=== PATIENT | female | born 1940 | race Caucasian/White ===

== ENCOUNTER → 2017-10-11 19:18 | Outpatient (REF) | payer MEDICARE, MEDICAID, SELFPAY ==
[2017-10-11 20:45] LABS: *AMPHETAMINES SCREEN URINE Negative (Negative); *BARBITURATES SCREEN URINE Negative (Negative); *BENZODIAZEPINES SCREEN URINE Negative (Negative); Cannabinoids THC Negative (Negative); Cocaine Screen,Urine Negative (Negative); METHADONE URINE SCREEN Negative (Negative); OPIATES URINE SCREEN Negative (Negative)
[2017-10-11 20:46] LABS: Tricyclic Antidepressants POSITIVE (Negative)
== END ==
LOC: LBN 19:18
PROVIDERS: PCP Student in an Organized Health Care Education/Training Program; Visit Provider Student in an Organized Health Care Education/Training Program
DX: R82.90 Unspecified abnormal findings in urine (principal); F11.90 Opioid use, unspecified, uncomplicated; G89.29 Other chronic pain
CPT/HCPCS: 80307

== ENCOUNTER 2018-05-02 08:34 | Outpatient (CLI) | payer MEDICARE, MEDICAID, SELFPAY ==
[2018-05-02 09:42] LABS: Anion Gap 9.2 mmol/L (3-11); BUN 18 mg/dL (7-18); CO2 29.8 mmol/L (21.0-32.0); CREATININE 1.25 mg/dL (0.55-1.02); Calcium 9.2 mg/dL (8.5-10.1); Chloride 103 mmol/L (98-107); Estimated GFR 41.67 (mL/min/1.73m2); Glucose 95 mg/dL (70-100); Potassium 3.7 mmol/L (3.5-5.1); Sodium 142 mmol/L (136-145)
== END 2018-05-02 08:54 ==
PROVIDERS: PCP Student in an Organized Health Care Education/Training Program; Visit Provider Student in an Organized Health Care Education/Training Program
DX: I10 Essential (primary) hypertension (principal); E78.5 Hyperlipidemia, unspecified; Z86.39 Personal history of other endocrine, nutritional and metabolic disease
CPT/HCPCS: 36415; 80048

== ENCOUNTER 2019-10-30 09:43 | Outpatient (REF) | payer MEDICARE, MEDICAID, SELFPAY ==
[2019-10-30 17:08] LABS: ALT 19 U/L (14-59); AST 15 U/L (15-37); Albumin 3.7 g/dL (3.4-5.0); Alkaline Phosphatase 78 U/L (46-116); Anion Gap 5.4 mmol/L (3-11); BUN 25 mg/dL (7-18); Bilirubin, Total 0.6 mg/dL (0.2-1.0); CO2 31.6 mmol/L (21.0-32.0); CREATININE 1.11 mg/dL (0.55-1.02); Calcium 9.2 mg/dL (8.5-10.1); Chloride 104 mmol/L (98-107); Estimated GFR 47.66 (mL/min/1.73m2); Glucose 104 mg/dL (74-106); Potassium 4.1 mmol/L (3.5-5.1); Sodium 141 mmol/L (136-145); TSH (W/Ref FT4) 1.35 uIU/mL (0.36-3.74); Total Protein 6.4 g/dL (6.4-8.2)
[2019-10-31 07:06] LABS: Vitamin D 25 Total 39.8 ng/ml (30-100)
[2019-10-31 14:40] LABS: Calculated LDL 144 mg/dL (<100); Cholesterol 225 mg/dL (<200); HDL Cholesterol 66 mg/dL (40-60); Triglyceride 76 mg/dL (<150)
== END 2019-10-30 10:03 ==
LOC: NCHCN 09:43
PROVIDERS: PCP Nurse Practitioner; Visit Provider Nurse Practitioner
DX: I10 Essential (primary) hypertension (principal); R60.9 Edema, unspecified; Z79.51 Long term (current) use of inhaled steroids; Z13.6 Encounter for screening for cardiovascular disorders
CPT/HCPCS: 80053; 80061; 82306; 84443

== ENCOUNTER 2021-04-23 00:44 | Outpatient (CLI) | payer MEDICARE, MEDICAID, SELFPAY ==
--- NOTE | 2021-04-23 09:27 | DI.US_ITS ---
APPROVED REPORT EXAM: Comprehensive 2D, Doppler, and color-flow Echocardiogram Patient Location: Out-Patient Technical Trainer: Annelise Gibson RDCS (AE) Indications: Atrial Fibrillation, Chronic edema, COPD Other Information Study Quality: Adequate Conclusion Normal left ventricular wall thickness and chamber size. Estimated ejection fraction is 55%. Wall m otion is normal Normal right ventricular size and systolic function The right atrium is mildly dilated. The left atrium is normal in size Trileaflet sclerotic aortic valve with trace regurgitation Mitral annular calcification with mild to moderate mitral regurgitation Normal tricuspid valve with moderate regurgitation. Estimated right ventricular systolic pressure is 47 mmHg Wall motion Left Ventricle The left ventricle is normal size. The left ventricular systolic function is normal. The left ventric ular ejection fraction is within the normal range. There is normal left ventricular wall thickness. T here is normal LV segmental wall motion. There is no ventricular septal defect visualized. LVEF is 55 %. Right Ventricle The right ventricle is normal size. Right ventricular systolic function is grossly normal. The RVSP i s 47.2 mmHg. Atria The left atrium size is normal. Right atrium is mildly dilated. The interatrial septum is intact with no evidence for an atrial septal defect. Aortic Valve The Aortic valve is sclerotic. Aortic valve is trileaflet. There is no aortic valvular stenosis. Trac e aortic regurgitation. Mitral Valve Moderate mitral annular calcification. No evidence of mitral valve stenosis. Mild to moderate mitral regurgitation. Tricuspid Valve The tricuspid valve is normal in structure. There is no tricuspid valve stenosis. Moderate tricuspid regurgitation. Pulmonic Valve The pulmonary valve is normal in structure. There is no pulmonic valvular stenosis. Trace pulmonic re gurgitation. Great Vessels The aortic root is normal in size. Ascending aorta is not well visualized. Aortic arch is not well vi sualized. IVC is normal in size and collapses >50% with inspiration. Pericardium Trace pericardial effusion. 2D Dimensions IVSD d PLAX 0.90 cm F: 0.6-1.0 LV Vol A2C d MOD 109.3 mL LVPW d PLAX 0.93 cm F: 0.6 - 1.0 LV Vol A4C d MOD 84.0 mL LVID d PLAX 4.28 cm F: 3.8 - 5.2 LA vol/ BSA A2C s A-L 21.9 mL/m2 LVDs 3.05 cm F: 2.2 - 3.5 LA vol/ BSA A4C s A-L 31.7 mL/m2 Ao Root d 2.66 cm F: 2.7 - 3.3 LA Vol/ BSA Biplane s A-L 29.6 mL/m2 RA Area A4C 17.53 cm2 LA Area A4C s MOD 19.94 cm2 RA Vol/ BSA A4C s A-L 27.3 mL/m2 LA Area A2C s MOD 14.75 cm2 LV EF Teichholz 54.7 % LV EF A4C MOD 54.3 % LVEF (Vazquez's) 52.19 % F: 54 - 74 LV EF A2C MOD 50.8 % LV Volume 76.08 mL F: 46 - 106 LV EF Biplane MOD 52.2 % LV Volume Index 39.83 mL/m2 F: 29 - 61 SV 52.16 mL LV Vol Biplane MOD 99.9 mL SV Index 27.25 mL/m2 FS 28.05 % M-Mode TAPSE 2.18 cm (M/F) >1.7 LV Diastology MV E' medial 0.142 (>0.07 m/s) MV E Vmax 0.97 (0.4-1.3 m/s) LV E/e MED 6.80 (<14) MV E' lateral 0.149 (>0.1 m/s) LV E/e LAT 6.45 (<14) MV E/E' medial 6.81 MV E/E' lateral 6.48 Aortic Valve LVOT Vmax 1.08 m/s LVOT Mean Rainer. 0.70 m/s LVOT Peak Grad 4.7 mmHg LVOT Mean Grad 2.3 mmHg LVOT VTI 0.186 m AoV Vmax 1.16 m/s Velocity Ratio 0.93 AoV Mean Rainer. 0.87 m/s AoV Peak Grad 5.4 mmHg AoV Mean Grad 3.3 mmHg AoV VTI 0.220 m Mitral Valve MV DT 240 (160-240 msec) MR Vmax 5.05 m/s MV PHT 70 msec MR VTI 1.565 m MV Area PHT 3.16 cm2 MR Peak Grad 102.1 mmHg MV VTI 0.185 m MR Mean Grad 81.8 mmHg Pulmonary Valve PV Vmax 1.04 (0.5-1.5 m/s) RVOT Peak Gr. 0.73 mmHg PV Peak Grad 4.4 mmHg RVOT Mean Gr. 0.50 mmHg PV Mean Grad 3.0 mmHg RVOT VTI 0.085 m PV VTI 0.161 m RVOT Vmax 0.43 m/s Tricuspid Valve TR Peak Grad 44.2 mmHg TR Vmax 3.32 m/s RA Pressure 3.00 mmHg RVSP (TR) 47.2 mmHg
== END 2021-04-23 01:04 ==
PROVIDERS: PCP Nurse Practitioner; Visit Provider Nurse Practitioner Family
DX: I48.91 Unspecified atrial fibrillation (principal); R60.9 Edema, unspecified; J44.9 Chronic obstructive pulmonary disease, unspecified
CPT/HCPCS: 93306

== ENCOUNTER 2021-05-06 19:28 | Outpatient (REF) | payer MEDICARE, MEDICAID, SELFPAY ==
[2021-05-06 14:56] LABS: HCT 38.2 % (36.0-46.0); HGB 11.6 g/dL (11.2-15.7); MCH 26.3 pg (27.0-33.0); MCHC 30.4 % (32.0-36.0); MCV 86.6 fL (80-95); MPV 9.6 fL (8.0-11.0); Platelet Count 264 10^3/uL (130-400); RBC 4.41 10^6/uL (3.93-5.22); RDW 13.9 % (11.7-14.6); WBC 7.43 10^3/uL (4.4-10.8)
[2021-05-06 15:04] LABS: ESR 23 mm/hr (0-30)
[2021-05-06 15:21] LABS: INR 1.1 (0.9-1.1); PTT Activated 29.4 sec (21.0-27.5); Prothrombin Time 11.4 sec (9.3-11.0)
[2021-05-06 16:01] LABS: ALT 17 U/L (14-59); AST 16 U/L (15-37); Albumin 3.4 g/dL (3.4-5.0); Alkaline Phosphatase 75 U/L (46-116); Anion Gap 9.4 mmol/L (3-11); BUN 26 mg/dL (7-18); Bilirubin, Total 0.4 mg/dL (0.2-1.0); CO2 30.6 mmol/L (21.0-32.0); CREATININE 1.4 mg/dL (0.55-1.02); Calcium 9.1 mg/dL (8.5-10.1); Calculated LDL 131 mg/dL (<100); Chloride 104 mmol/L (98-107); Cholesterol 217 mg/dL (<200); Estimated GFR 36.27 (mL/min/1.73m2); Glucose 95 mg/dL (74-106); HDL Cholesterol 69 mg/dL (40-60); Potassium 3.7 mmol/L (3.5-5.1); Sodium 144 mmol/L (136-145); Total Protein 6.6 g/dL (6.4-8.2); Triglyceride 85 mg/dL (<150)
[2021-05-06 16:13] LABS: C-Reactive Protein 0.21 mg/dL (0.0-0.3)
[2021-05-06 21:39] LABS: Rheumatoid Factor <8.6 IU/mL (<12.0)
[2021-05-07 13:40] LABS: ANA Interpretation Negative (Negative)
== END 2021-05-06 19:29 | disposition home or self-care (01) ==
LOC: NCHCN 19:28
PROVIDERS: PCP Nurse Practitioner; Visit Provider Nurse Practitioner Family
DX: I48.91 Unspecified atrial fibrillation (principal); M25.551 Pain in right hip; M25.59 Pain in other specified joint; G89.4 Chronic pain syndrome
CPT/HCPCS: 80053; 80061; 85027; 85652; 84443; 85610; 85730; 86038; 86140; 86431

== ENCOUNTER → 2021-05-18 01:35 | Outpatient (CLI) | payer MEDICARE, MEDICAID, SELFPAY ==
--- NOTE | 2021-05-18 | DI.RAD_ITS ---
Exam(s) XR HIP RT COMPLETE AP PELVIS EXAM: XR HIP RT COMPLETE AP PELVIS CLINICAL HISTORY: RT HIP PAIN, HX OSTEOARTHRITIS, BASELINE XRAY. TECHNIQUE: 2D digital imaging was performed of the right hip. Two images were obtained. AP pelvis a nd lateral right hip views were obtained. COMPARISON: No exams were available for comparison FINDINGS: BONES: No acute fracture is present. No bony destructive lesion is seen. JOINTS: No dislocation present. There is mild narrowing of the right hip joint. Moderate degenerativ e changes are seen in the visualized lumbar spine with disc space narrowing and endplate osteophytes. Mild degenerative changes are seen at the sacroiliac joints. SOFT TISSUE: Normal. IMPRESSION: Mild joint space narrowing of the right hip. Degenerative changes in the pelvis and lumbar spine. DATA REPOSITORY: RADIATION DOSE DELIVERED:
== END ==
PROVIDERS: PCP Nurse Practitioner; Visit Provider Nurse Practitioner Family
DX: M25.551 Pain in right hip (principal); M16.11 Unilateral primary osteoarthritis, right hip
CPT/HCPCS: 73502

== ENCOUNTER → 2021-07-12 13:30 | Outpatient (BNVA) | payer MEDICARE, MEDICAID, SELFPAY | PROVIDERS: PCP Nurse Practitioner; Referring Provider Nurse Practitioner; Visit Provider Student in an Organized Health Care Education/Training Program | DX: M16.11 Unilateral primary osteoarthritis, right hip (principal); M70.61 Trochanteric bursitis, right hip | CPT/HCPCS: 20610; 99203; J1040 ==

== ENCOUNTER 2021-09-07 18:37 | Outpatient (REF) | payer MEDICARE, MEDICAID, SELFPAY ==
[2021-09-07 14:21] LABS: Abs Immature Grans 0.05 10^3/uL (0.0-0.06); Absolute Basophil Count 0.08 10^3/uL (0.0-0.2); Absolute Eosinophil Count 0.11 10^3/uL (0.0-0.7); Absolute Lymphocyte Count 1.66 10^3/uL (1.2-3.4); Absolute Monocyte Count 0.65 10^3/uL (0.1-0.8); Absolute Neutrophil Count 4.29 10^3/uL (1.2-6.7); Basophils % 1.2; Eosinophils % 1.6; HCT 37.6 % (36.0-46.0); HGB 11.7 g/dL (11.2-15.7); Immature Grans % 0.7; Lymphocytes % 24.3; MCH 27.7 pg (27.0-33.0); MCHC 31.1 % (32.0-36.0); MCV 89 fL (80-95); MPV 9.3 fL (8.0-11.0); Monocytes % 9.5; Neutrophils % 62.7; Platelet Count 242 10^3/uL (130-400); RBC 4.23 10^6/uL (3.93-5.22); RDW 15.4 % (11.7-14.6); RDW-SD 50.2 fL; WBC 6.84 10^3/uL (4.4-10.8)
[2021-09-07 15:20] LABS: ALT 21 U/L (14-59); AST 18 U/L (15-37); Albumin 3.5 g/dL (3.4-5.0); Alkaline Phosphatase 68 U/L (46-116); BUN 30 mg/dL (7-18); Bilirubin, Total 0.5 mg/dL (0.2-1.0); CREATININE 1.5 mg/dL (0.55-1.02); Calculated LDL 114 mg/dL (<100); Chloride 103 mmol/L (98-107); Cholesterol 197 mg/dL (<200); Ferritin 9 ng/mL (8-252); Glucose 95 mg/dL (74-106); HDL Cholesterol 64 mg/dL (40-60); Potassium 3.8 mmol/L (3.5-5.1); Sodium 144 mmol/L (136-145); Total Protein 6.5 g/dL (6.4-8.2); Triglyceride 95 mg/dL (<150)
[2021-09-07 15:36] LABS: PHOSPHORUS 3.3 mg/dL (2.6-4.7)
[2021-09-07 23:18] LABS: Parathyroid Hormone,Intact 43 pg/mL (19-88)
[2021-09-09 05:32] LABS: Vitamin D 25 Total 38.3 ng/mL (30-100)
== END 2021-09-07 18:38 | disposition home or self-care (01) ==
LOC: NCHCN 18:37
PROVIDERS: PCP Nurse Practitioner; Visit Provider Nurse Practitioner Family
DX: I48.91 Unspecified atrial fibrillation (principal); N28.9 Disorder of kidney and ureter, unspecified; J44.9 Chronic obstructive pulmonary disease, unspecified; M25.551 Pain in right hip; E66.8 Other obesity; I10 Essential (primary) hypertension
CPT/HCPCS: 80053; 80061; 82306; 82728; 83970; 84100; 85025

== ENCOUNTER 2021-11-30 16:24 | Outpatient (REF) | payer MEDICARE, MEDICAID, SELFPAY ==
[2021-11-30 14:35] LABS: Abs Immature Grans 0.02 10^3/uL (0.0-0.06); Absolute Basophil Count 0.06 10^3/uL (0.0-0.2); Absolute Eosinophil Count 0.05 10^3/uL (0.0-0.7); Absolute Lymphocyte Count 1.66 10^3/uL (1.2-3.4); Absolute Monocyte Count 0.72 10^3/uL (0.1-0.8); Absolute Neutrophil Count 4.86 10^3/uL (1.2-6.7); Basophils % 0.8; Eosinophils % 0.7; HCT 37.8 % (36.0-46.0); HGB 11.8 g/dL (11.2-15.7); Immature Grans % 0.3; Lymphocytes % 22.5; MCH 28.5 pg (27.0-33.0); MCHC 31.2 % (32.0-36.0); MCV 91 fL (80-95); MPV 9.1 fL (8.0-11.0); Monocytes % 9.8; Neutrophils % 65.9; Platelet Count 248 10^3/uL (130-400); RBC 4.14 10^6/uL (3.93-5.22); WBC 7.37 10^3/uL (4.4-10.8)
[2021-11-30 15:32] LABS: ALT 20 U/L (14-59); AST 20 U/L (15-37); Albumin 3.5 g/dL (3.4-5.0); Alkaline Phosphatase 58 U/L (46-116); Anion Gap 7.4 mmol/L (3-11); BUN 20 mg/dL (7-18); Bilirubin, Total 0.5 mg/dL (0.2-1.0); CO2 31.6 mmol/L (21.0-32.0); CREATININE 1.1 mg/dL (0.55-1.02); Calcium 9.4 mg/dL (8.5-10.1); Chloride 104 mmol/L (98-107); Estimated GFR 51.11 (mL/min/1.73m2); Glucose 99 mg/dL (74-106); Potassium 3.7 mmol/L (3.5-5.1); Sodium 143 mmol/L (136-145); Total Protein 6.6 g/dL (6.4-8.2)
== END 2021-11-30 16:25 | disposition home or self-care (01) ==
LOC: NCHCN 16:24
PROVIDERS: PCP Nurse Practitioner; Visit Provider Nurse Practitioner Family
DX: F41.8 Other specified anxiety disorders (principal); I48.91 Unspecified atrial fibrillation; I10 Essential (primary) hypertension; N28.9 Disorder of kidney and ureter, unspecified; R60.9 Edema, unspecified
CPT/HCPCS: 80053; 84443; 85025

== ENCOUNTER → 2022-01-28 10:26 | Outpatient (BNVA) | payer MEDICARE, MEDICAID, SELFPAY | PROVIDERS: PCP Nurse Practitioner Family; Referring Provider Nurse Practitioner Family; Visit Provider Physician Assistant | DX: M70.61 Trochanteric bursitis, right hip (principal) | CPT/HCPCS: 20610; J1040 ==

== ENCOUNTER → 2022-04-01 09:59 | Outpatient (BNVA) | payer MEDICARE, MEDICAID, SELFPAY | PROVIDERS: PCP Nurse Practitioner Family; Referring Provider Nurse Practitioner Family; Visit Provider Student in an Organized Health Care Education/Training Program | DX: M70.61 Trochanteric bursitis, right hip (principal); M76.891 Other specified enthesopathies of right lower limb, excluding foot | CPT/HCPCS: 99213 ==

== ENCOUNTER 2022-04-28 01:35 | Outpatient (CLI) | payer MEDICARE, MEDICAID, SELFPAY ==
--- NOTE | 2022-04-28 13:00 | DI.MRI_ITS ---
Exam(s) MR LOWER JOINT RT WO EXAM: MR LOWER JOINT RT WO CLINICAL HISTORY: PAIN,djd rt hip, trochenteric bursitis rt hip,m16.11,m70.61 TECHNIQUE: Multiplanar multisequence MRI of Pelvis was performed COMPARISON: US PELVIS TRANSVAG from 01/04/2010 CR XR HIP RT COMPLETE AP PELVIS from 05/18/2021 FINDINGS: Bones: There is no fracture or contusion pattern. No bone marrow edema is seen. Joints: No significant joint effusion is present. The SI joints and symphysis pubis are well maintain ed. Spurring at the pubic symphysis. Tiny cyst in the superior labrum. Degenerative signal changes in the labrum. Musculotendinous structures: No evidence of tendon tear. Mild edema at greater trochanter could ind icate mild trochanteric bursitis. Intrapelvic structures: Abnormal endometrial thickening of up to 2 cm . Mild sigmoid diverticulosis. Urinary bladder nearly empty. IMPRESSION: Minimal edema adjacent to greater trochanter could indicate mild trochanteric bursitis. Abnormal thickening of the endometrium up to 2 cm. Gynecologic consultation recommended. Unexpected findings DATA REPOSITORY:
== END 2022-04-28 01:55 ==
LOC: DI 01:36
PROVIDERS: PCP Nurse Practitioner Family; Visit Provider Student in an Organized Health Care Education/Training Program
DX: M16.11 Unilateral primary osteoarthritis, right hip (principal); M70.61 Trochanteric bursitis, right hip
CPT/HCPCS: 73721

== ENCOUNTER 2022-05-05 01:15 | Outpatient (CLI) | payer MEDICARE, MEDICAID, SELFPAY ==
[2022-05-05] MEDS: methylPREDNISolone ACETATE 80 MG/ML VIAL IM (14:05)
[2022-05-05] MEDS: Bupivacaine 0.5% Pres-Free 10 ML VIAL 5 ML IJ (14:05)
--- NOTE | 2022-05-05 17:30 | W.PROCNOTE ---
Date of service: 05/05/22 Time of Service: 15:00 Procedure Note Date of procedure: 05/05/22 Procedure: Right Hip Injection with Fluoroscopic Guidance Surgeon/Proceduralist/Physician: Ben De La Cruz Procedure Diagnosis: Right Hip Pain Procedure Indications: Leni has had persistent pain of the RIGHT hip and groin. Noninvasive measures have been tried. To serve as both diagnostic and therapeutic, an injection under fluoroscopy was recommended. I had discussed the risks of the procedure and the patient elected to proceed. Procedure Description: Leni was greeted in the flouroscopy room. The correct side was identified and the consent was reviewed with the patient and signed. The patient was then placed in the supine position on the fluoroscopy table. The RIGHT hip was then prepped with Chloraprep. The anterolateral injection starting point was identiifed by bony landmarks and fluoroscopy. The skin and soft tissue in the tract of the injection was anesthetized with 1% Lidocaine. A spinal needle was then inserted deep into the hip joint at the level of the lateral femoral neck under fluoroscopic guidance. A small amount of Omnipaque solution was injected to confirm intraarticular placement. Once confirmed, the hip was injected with 5cc of 0.5% Bupivicaine and 80mg of Depo-Medrol. A bandaid was placed on the injection site. The patient tolerated the procedure well.
== END 2022-05-05 01:35 ==
LOC: DI 01:15
PROVIDERS: PCP Nurse Practitioner Family; Visit Provider Student in an Organized Health Care Education/Training Program
DX: M25.551 Pain in right hip (principal)
CPT/HCPCS: 20610; 77002; 76000; J1040

== ENCOUNTER 2022-09-12 03:06 | Outpatient (CLI) | payer MEDICARE, MEDICAID, SELFPAY ==
--- NOTE | 2022-09-12 | DI.RAD_ITS ---
Exam(s) XR SHOULDER RT COMPLETE 2+V EXAM: XR SHOULDER RT COMPLETE 2+V CLINICAL HISTORY: CHRONIC RT SHOULDER PAIN, M25.511. TECHNIQUE: 2D digital imaging was performed of the right shoulder. Five images were obtained. AP, Grashey, Y-view and axillary views were obtained. COMPARISON: CR RIGHT SHOULDER COMPLETE from 12/09/2014 FINDINGS: BONES: No acute fracture is present. No bony destructive lesion is seen. JOINTS: No dislocation present. Mild degenerative changes are again seen at the acromioclavicular and glenohumeral joints. SOFT TISSUE: There are soft tissue calcifications adjacent to the AC joint. There is a question of a n ovoid density in the right perihilar region in the lungs. The finding is best appreciated on the Y -view. IMPRESSION: 1. Mild degenerative changes of the shoulder. 2. 2 cm nodular density in the right mid lung. CT scan of the chest is recommended for further evalu ation. Unexpected findings DATA REPOSITORY: RADIATION DOSE DELIVERED:
--- NOTE | 2022-09-12 | DI.RAD_ITS ---
Exam(s) XR SHOULDER LT COMPLETE 2+V EXAM: XR SHOULDER LT COMPLETE 2+V CLINICAL HISTORY: CHRONIC LT SHOULDER PAIN, M25.512. TECHNIQUE: 2D digital imaging was performed of the left shoulder. Seven images were obtained. AP, Grashey, Y-view and axillary views were obtained. COMPARISON: No exams were available for comparison FINDINGS: BONES: No acute fracture is present. No bony destructive lesion is seen. JOINTS: No dislocation present. Degenerative changes are seen at the acromioclavicular joint. Benign dystrophic calcifications are adjacent to the AC joint. The glenohumeral joint is well maintained. SOFT TISSUE: Normal. IMPRESSION: Degenerative changes of the AC joint. DATA REPOSITORY: RADIATION DOSE DELIVERED:
--- NOTE | 2022-09-12 | DI.RAD_ITS ---
Exam(s) XR CLAVICLE RT EXAM: XR CLAVICLE RT CLINICAL HISTORY: CLAVICLE PAIN, M89.8X8 TECHNIQUE: 2D digital imaging was performed of the right clavicle. Two images were obtained. AP and axial views were obtained. COMPARISON: CR RIGHT SHOULDER COMPLETE from 12/09/2014 FINDINGS: BONES: No acute fracture is present. No bony destructive lesion is seen. JOINTS: No dislocation present. Stable mild degenerative changes are seen at the acromioclavicular marcelle int. Soft tissue benign-appearing calcifications are adjacent to the AC joint. SOFT TISSUE: Soft tissue densities seen in the right upper lobe. IMPRESSION: 1. Mild degenerative changes of the AC joint. 2. Soft tissue densities in the right upper lobe. CT scan of the chest is recommended for further ev aluation. Unexpected findings DATA REPOSITORY: RADIATION DOSE DELIVERED:
== END 2022-09-12 03:26 ==
LOC: DI 03:06
PROVIDERS: PCP Nurse Practitioner Family; Visit Provider Nurse Practitioner Family
DX: M19.012 Primary osteoarthritis, left shoulder (principal); R91.8 Other nonspecific abnormal finding of lung field; M19.011 Primary osteoarthritis, right shoulder
CPT/HCPCS: 73000; 73030

== ENCOUNTER → 2022-10-04 08:57 | Outpatient (BNVA) | payer MEDICARE, MEDICAID, SELFPAY | PROVIDERS: PCP Nurse Practitioner Family; Referring Provider Nurse Practitioner Family; Visit Provider Student in an Organized Health Care Education/Training Program | DX: M19.011 Primary osteoarthritis, right shoulder (principal); M19.012 Primary osteoarthritis, left shoulder | CPT/HCPCS: 99214 ==

== ENCOUNTER 2022-10-17 15:42 | Outpatient (REF) | payer MEDICARE, MEDICAID, SELFPAY ==
[2022-10-17 15:54] LABS: Abs Immature Grans 0.06 10^3/uL (0.0-0.06); Absolute Basophil Count 0.06 10^3/uL (0.0-0.2); Absolute Eosinophil Count 0.05 10^3/uL (0.0-0.7); Absolute Lymphocyte Count 1.32 10^3/uL (1.2-3.4); Absolute Monocyte Count 0.95 10^3/uL (0.1-0.8); Absolute Neutrophil Count 9.56 10^3/uL (1.2-6.7); Basophils % 0.5; Eosinophils % 0.4; HGB 10.3 g/dL (11.2-15.7); Immature Grans % 0.5; MCH 28.8 pg (27.0-33.0); MCHC 30.3 % (32.0-36.0); MCV 95 fL (80-95); MPV 9.2 fL (8.0-11.0); Monocytes % 7.9; Neutrophils % 79.7; Platelet Count 255 10^3/uL (130-400); RBC 3.58 10^6/uL (3.93-5.22); RDW 16.7 % (11.7-14.6)
[2022-10-17 16:54] LABS: Vitamin D 25 Total 41.5 ng/mL (30-100)
[2022-10-17 16:56] LABS: ALT 16 U/L (14-59); AST 16 U/L (15-37); Albumin 3.1 g/dL (3.4-5.0); Alkaline Phosphatase 92 U/L (46-116); Anion Gap 9.8 mmol/L (3-11); BUN 30 mg/dL (7-18); Bilirubin, Total 0.5 mg/dL (0.2-1.0); CO2 28.2 mmol/L (21.0-32.0); CREATININE 1.3 mg/dL (0.55-1.02); Calcium 8.9 mg/dL (8.5-10.1); Chloride 102 mmol/L (98-107); Estimated GFR 41.57 (mL/min/1.73m2); Ferritin 37 ng/mL (8-252); Glucose 100 mg/dL (74-106); Magnesium 1.9 mg/dL (1.8-2.4); Sodium 140 mmol/L (136-145); Total Protein 6.6 g/dL (6.4-8.2)
== END 2022-10-17 15:43 | disposition home or self-care (01) ==
LOC: NCHCN 15:42
PROVIDERS: PCP Nurse Practitioner Family; Visit Provider Nurse Practitioner Family
DX: R53.83 Other fatigue (principal); F41.8 Other specified anxiety disorders; I48.91 Unspecified atrial fibrillation; N28.9 Disorder of kidney and ureter, unspecified; I10 Essential (primary) hypertension; E55.9 Vitamin D deficiency, unspecified
CPT/HCPCS: 80053; 82306; 82728; 83735; 85025

== ENCOUNTER 2022-10-28 07:20 | Outpatient (CLI) | payer MEDICARE, MEDICAID, SELFPAY ==
--- NOTE | 2022-10-28 07:15 | RT.EKG_ITS ---
APPROVED REPORT Exam: Resting ECG Reason for Exam: cardiac evaluation Patient Location: O HR:86 bpm ECG Measurements Heart Rate 86 AXIS MO [id number] P [id number] QRSd 89 QRS 49 QT 371 T [id number] QTc 444 Conclusion Atrial fibrillation...? atrial activity Low voltage Baseline wander in lead(s) V6 Poor R wave progression
== END 2022-10-28 07:21 | disposition home or self-care (01) ==
LOC: DI.CARD 07:21
PROVIDERS: PCP Nurse Practitioner Family; Visit Provider Internal Medicine Cardiovascular Disease
DX: E78.5 Hyperlipidemia, unspecified (principal); I10 Essential (primary) hypertension; I34.0 Nonrheumatic mitral (valve) insufficiency; I48.91 Unspecified atrial fibrillation
CPT/HCPCS: 93010

== ENCOUNTER → 2022-10-28 12:51 | Outpatient (BNVA) | payer MEDICARE, MEDICAID, SELFPAY | PROVIDERS: PCP Nurse Practitioner Family; Referring Provider Nurse Practitioner Family; Visit Provider Internal Medicine Cardiovascular Disease | DX: Z79.01 Long term (current) use of anticoagulants (principal); I48.91 Unspecified atrial fibrillation; I10 Essential (primary) hypertension | CPT/HCPCS: 93005; 99202; 99214 ==

== ENCOUNTER → 2022-11-01 01:01 | Outpatient (CLI) | payer MEDICARE, MEDICAID, SELFPAY ==
--- NOTE | 2022-11-01 | DI.CT_ITS ---
Exam(s) CT CHEST WO EXAM: CT CHEST WO CLINICAL HISTORY: PULMONARY NODULE R91.1 FU FROM 08/2022 TECHNIQUE: Imaging Protocol: Axial computed tomography images with coronal and sagittal reformatted images were created and reviewed CONTRAST MATERIAL: Intravenous: Omnipaque 350 Contrast volume:structured data ml. COMPARISON: CR CHEST 2 VIEWS PA,LAT from 08/10/2012 CR LEFT SHOULDER COMPLETE from 07/23/2015 CR XR SHOULDER LT COMPLETE 2+V from 09/12/2022 CR XR CLAVICLE RT from 09/12/2022 CR XR SHOULDER RT COMPLETE 2+V from 09/12/2022 FINDINGS: Pulmonary parenchyma: Right basilar atelectasis and/or scarring. Minimal lingular scarring. Skin sc attered mild ground-glass opacities in both upper lobes. Mild emphysematous changes. Calcified gran uloma left upper lobe. No consolidation. No dominant measurable mass. Pulmonary arteries: Prominent. Main pulmonary trunk measures 3.9 cm. Tracheobronchial tree: No bronchiectasis or mucous plugging. Mediastinum and Ilda: No dominant adenopathy or fluid collection. Pleura: Small bilateral pleural effusions, left greater than right. No pneumothorax. Heart: The heart is moderately dilated. [id number] coronary artery calcifications are seen. Trace pericardial effusion. Aorta: Thoracic aorta non-dilated. Mild atherosclerotic changes. Upper abdomen: Unremarkable. Bones: Degenerative changes in the spine. Soft tissues: Unremarkable. IMPRESSION: Densities seen in the right upper lobe on prior shoulder x-rays are not seen on the current exam. Th e findings may have represented infiltrates which have since cleared. Currently there are minimal re sidual ground-glass glass opacities. Enlarged heart. Trace pericardial effusion. Tiny bilateral pleural effusions. RADIATION DOSE DELIVERED: 468.97mGy.cm Total DLP DATA REPOSITORY: All CT scans at this facility are submitted to the National Radiology Data Registry (NRDR) Dose Index Registry (DIR) with the [employer] (ACR). RADIATION OPTIMIZATION: All CT scans at this facility use at least one of these dose optimization te chniques: automated exposure control; mA and/or kV adjustment per patient size (includes targeted exa ms where dose is matched to clinical indication); or iterative reconstruction.
== END ==
PROVIDERS: PCP Nurse Practitioner Family; Visit Provider Nurse Practitioner Family
DX: R91.1 Solitary pulmonary nodule (principal); I51.7 Cardiomegaly; J90 Pleural effusion, not elsewhere classified
CPT/HCPCS: 71250

== ENCOUNTER 2022-12-20 21:25 | Outpatient (REF) | payer MEDICARE, MEDICAID, SELFPAY ==
[2022-12-20 20:58] LABS: Abs Immature Grans 0.02 10^3/uL (0.0-0.06); Absolute Basophil Count 0.07 10^3/uL (0.0-0.2); Absolute Eosinophil Count 0.04 10^3/uL (0.0-0.7); Absolute Lymphocyte Count 1.53 10^3/uL (1.2-3.4); Basophils % 1.4; Eosinophils % 0.8; HCT 34.4 % (36.0-46.0); HGB 10.5 g/dL (11.2-15.7); Immature Grans % 0.4; Lymphocytes % 29.7; MCH 28.8 pg (27.0-33.0); MCHC 30.5 % (32.0-36.0); MCV 94 fL (80-95); MPV 9.1 fL (8.0-11.0); Monocytes % 9.7; Platelet Count 170 10^3/uL (130-400); RBC 3.65 10^6/uL (3.93-5.22); RDW 15.7 % (11.7-14.6); RDW-SD 54.4 fL; WBC 5.16 10^3/uL (4.4-10.8)
[2022-12-20 21:18] LABS: ALT 18 U/L (14-59); AST 15 U/L (15-37); Albumin 3.5 g/dL (3.4-5.0); Alkaline Phosphatase 67 U/L (46-116); BUN 24 mg/dL (7-18); Bilirubin, Total 0.4 mg/dL (0.2-1.0); CREATININE 1.2 mg/dL (0.55-1.02); Calcium 9.3 mg/dL (8.5-10.1); Chloride 106 mmol/L (98-107); Estimated GFR 45.76 (mL/min/1.73m2); Glucose 98 mg/dL (74-106); Potassium 4.3 mmol/L (3.5-5.1); Sodium 142 mmol/L (136-145); TSH (W/Ref FT4) 1.41 uIU/mL (0.36-3.74); Total Protein 6.5 g/dL (6.4-8.2)
[2022-12-20 21:55] LABS: Iron 35 ug/dL (50-170); Total Iron Binding Capacity 420 ug/dL (250-450); Transferrin Sat 8 % (15-50)
== END 2022-12-20 21:26 | disposition home or self-care (01) ==
LOC: NCHCN 21:25
PROVIDERS: PCP Nurse Practitioner Family; Visit Provider Nurse Practitioner Family
DX: D64.9 Anemia, unspecified (principal); R53.83 Other fatigue; I48.91 Unspecified atrial fibrillation; G89.4 Chronic pain syndrome; J44.9 Chronic obstructive pulmonary disease, unspecified
CPT/HCPCS: 80053; 83540; 83550; 84443; 85025

== ENCOUNTER 2023-03-23 11:27 | Outpatient (REF) | payer MEDICARE, MEDICAID, SELFPAY ==
[2023-03-23 16:09] LABS: HCT 36.1 % (36.0-46.0); HGB 11.2 g/dL (11.2-15.7); MCH 29.2 pg (27.0-33.0); MCV 94 fL (80-95); MPV 9.4 fL (8.0-11.0); Platelet Count 195 10^3/uL (130-400); RBC 3.83 10^6/uL (3.93-5.22); RDW 15.4 % (11.7-14.6); RDW-SD 53.4 fL; WBC 5.61 10^3/uL (4.4-10.8)
[2023-03-23 16:47] LABS: ALT 17 U/L (14-59); AST 22 U/L (15-37); Albumin 3.2 g/dL (3.4-5.0); Alkaline Phosphatase 61 U/L (46-116); Anion Gap 5.9 mmol/L (3-11); BUN 25 mg/dL (7-18); Bilirubin, Total 0.5 mg/dL (0.2-1.0); CO2 30.1 mmol/L (21.0-32.0); CREATININE 1.1 mg/dL (0.55-1.02); Calcium 9.5 mg/dL (8.5-10.1); Chloride 106 mmol/L (98-107); Ferritin 18 ng/mL (8-252); Glucose 97 mg/dL (74-106); Potassium 4.8 mmol/L (3.5-5.1); Sodium 142 mmol/L (136-145); Total Protein 6.8 g/dL (6.4-8.2)
== END 2023-03-23 11:28 | disposition home or self-care (01) ==
LOC: NCHCN 11:27
PROVIDERS: PCP Nurse Practitioner Family; Visit Provider Nurse Practitioner Family
DX: D64.9 Anemia, unspecified (principal); R53.83 Other fatigue
CPT/HCPCS: 80053; 85027; 82728; 83540; 83550

== ENCOUNTER → 2023-05-22 02:31 | Outpatient (CLI) | payer MEDICARE, MEDICAID, SELFPAY ==
--- NOTE | 2023-05-22 07:00 | DI.US_ITS ---
APPROVED REPORT EXAM: Comprehensive 2D, Doppler, and color-flow Echocardiogram Patient Location: Out-Patient Branch Store Manager: Annelise Gibson RDCS (AE) Indications: LV function, MR, A Fib, HTN Other Information Study Quality: Adequate Conclusion Normal left ventrciular wall thickness and chamber size. EF is 60%. Wall motion is normal Right ventricle is normal in size and systolic function Both atria are moderately dilated There are no structural valvular abnormalities Moderate mitral and tricuspid regurgitation Estimated right ventricular systolic pressure is 48 mmHg Small pericardial effusion Wall motion Left Ventricle The left ventricle is normal size. The left ventricular systolic function is normal. The left ventric ular ejection fraction is within the normal range. There is normal left ventricular wall thickness. T here is normal LV segmental wall motion. There is no ventricular septal defect visualized. LVEF is 60 %. Right Ventricle The right ventricle is normal size. The right ventricular systolic function is normal. Atria Left atrium is moderately dilated. Right atrium is moderately dilated. The interatrial septum is int act with no evidence for an atrial septal defect. Aortic Valve The aortic valve is normal in structure. Aortic valve is trileaflet. There is no aortic valvular sten osis. No aortic regurgitation is present. Mitral Valve The mitral valve is normal in structure. No evidence of mitral valve stenosis. Moderate mitral regurg itation. Tricuspid Valve The tricuspid valve is normal in structure. There is no tricuspid valve stenosis. Moderate tricuspid regurgitation. The RVSP is 48.6mmHg. Pulmonic Valve The pulmonary valve is normal in structure. There is no pulmonic valvular stenosis. Trace pulmonic re gurgitation. Great Vessels The aortic root is normal in size. Ascending aorta is not well visualized. Aortic arch is not well vi sualized. The IVC collapses <50% with inspiration. Pericardium Small circumferential pericardial effusion. 2D Dimensions IVSD d PLAX 0.66 cm F: 0.6-1.0 Ao Root d 2.90 cm F: 2.7 - 3.3 LVPW d PLAX 0.73 cm F: 0.6 - 1.0 LVID d PLAX 4.79 cm F: 3.8 - 5.2 LVDs 3.24 cm F: 2.2 - 3.5 LV EF Teichholz 60.3 % FS 32.21 % LV EDV (Teich) 106.8 mL LV ESV (Teich) 42.4 mL Auto EF LV EDV A4C 87.2 mL LV EDV A2C 124.5 mL LV EDV BP 104.0 mL LV ESV A4C 34.1 mL LV ESV A2C 53.0 mL LV ESV BP 43.0 mL LVEF(%) A4C 60.9 % LVEF(%) A2C 57.4 % LVEF(%) BP 58.7 % LV SV A4C 53.1 ml LV SV A2C 71.5 ml LV SV BP 61.0 ml LV CO A4C 4.0 L/min LV CO A2C 5.9 L/min LV CO BP 4.9 L/min HR A4C 75.95 BPM HR A2C 81.82 BPM LV EDV Index (BP) LA Volume LA Length A4C 5.3 cm LA Length A2C 4.7 cm LA Area A4C s 19.97 cm2 LA Area A2C s 19.00 cm2 LA Vol A4C A-L 64.11 mL LA Vol A2C A-L 65.48 mL LA Vol Biplane A-L 68.8 mL LA Vol/BSA A4C A-L LA Vol/BSA A2C A-L LA Vol/BSA BP A-L 38.2 mL/m2 LA Vol A4C MOD 57.2 mL LA Vol A2C MOD 61.1 mL LA Vol BP MOD 62.5 mL RA Volume RA Area A4C 20.6 cm2 RA ESV A4C (A-L) 63.6mL RA Vol/BSA A4C A-L RA Length A4C 5.7 cm RA ESV A4C (MOD) 61.1mL LV Diastology MV E' medial 0.118 (>0.07 m/s) MV E Vmax 0.93 (0.4-1.3 m/s) MV E/E' MED 7.83 (<14) MV E' lateral 0.139 (>0.1 m/s) MV E/E' LAT 6.68 (<14) MV E' Average 0.129 m/s MV E/E'(average) 7.21 Aortic Valve AoV Vmax 1.55 m/s LVOT Diam s 1.95 cm AoV Peak Grad 9.6 mmHg AoV VTI 0.321 m AoV Mean Rainer. 0.99 m/s AoV Mean Grad 4.6 mmHg Mitral Valve MV DT 216 (160-240 msec) MV Vmax TIPS 0.93 m/s MV Mean Grad 1.0 (<2mmHg) MV VTI 0.239 m Pulmonary Valve PV Vmax 0.88 (0.5-1.5 m/s) RVOT Vmax 0.69 m/s PV Peak Grad 3.1 mmHg RVOT Peak Gr. 1.9 mmHg PV Mean Rainer 0.61 m/s RVOT VTI 0.147 m PV Mean Grad 1.7 mmHg RVOT Mean Gr. 1.0 mmHg Tricuspid Valve RA Pressure 8.00 mmHg TR Vmax 3.19 m/s TV S' 0.11 m/s TR Peak Grad 40.6 mmHg RVSP (TR) 48.6 mmHg
== END ==
PROVIDERS: PCP Nurse Practitioner Family; Visit Provider Internal Medicine Cardiovascular Disease
DX: I10 Essential (primary) hypertension (principal); I48.91 Unspecified atrial fibrillation; I34.0 Nonrheumatic mitral (valve) insufficiency
CPT/HCPCS: 93306

== ENCOUNTER → 2023-06-01 14:22 | Outpatient (BNVA) | payer MEDICARE, MEDICAID, SELFPAY | PROVIDERS: PCP Nurse Practitioner Family; Referring Provider Nurse Practitioner Family; Visit Provider Internal Medicine Cardiovascular Disease | DX: I48.11 Longstanding persistent atrial fibrillation (principal); I10 Essential (primary) hypertension | CPT/HCPCS: 99213 ==

== ENCOUNTER 2023-10-03 21:45 | Outpatient (REF) | payer MEDICARE, MEDICAID, SELFPAY ==
[2023-10-03 19:00] LABS: HCT 43.2 % (36.0-46.0); HGB 13.6 g/dL (11.2-15.7); MCH 32.2 pg (27.0-33.0); MCHC 31.5 % (32.0-36.0); MCV 102 fL (80-95); MPV 9.4 fL (8.0-11.0); Platelet Count 199 10^3/uL (130-400); RBC 4.22 10^6/uL (3.93-5.22); RDW 15.1 % (11.7-14.6); RDW-SD 57.1 fL; WBC 7.67 10^3/uL (4.4-10.8)
[2023-10-03 19:57] LABS: Anion Gap 8.4 mmol/L (3-11); BUN 26 mg/dL (7-18); CO2 30.6 mmol/L (21.0-32.0); Calcium 9.6 mg/dL (8.5-10.1); Chloride 105 mmol/L (98-107); Ferritin 40 ng/mL (8-252); Glucose 103 mg/dL (74-106); Potassium 4.4 mmol/L (3.5-5.1); Sodium 144 mmol/L (136-145); Vitamin B12 389 pg/mL (193-986)
[2023-10-03 20:12] LABS: Iron 48 ug/dL (50-170); Total Iron Binding Capacity 335 ug/dL (250-450); Transferrin Sat 14 % (15-50)
--- OUTSIDE RECORDS SUMMARY | 2023-10-03 21:47 | XMS_ITS | Encounter Summary ---
Author Organization [facility] Address [address] [place] [address] Care Team Providers Care Inside Phone Sales Name Role Phone Unavailable Primary Care Provider Unavailabl e Encounter Details Date Type Department Care Team (Late st Contact Info) Description 12/21/2004 Before PRISM Converted Visit (Maple) [facility] - Maple conversion [address] [place] [address] Pankaj Arvizu MD [address] [place] [address] Social History Tobacco Use Types Packs/Day Years Used Date Smoking Tobacco: Never Assessed Sex and Gender Information Value Date Recorded Sex Assigned at Not on file Gender Identity Not on file Sexual Orientation Not on file documented as of this encounter Procedure Notes * Luke, Conv Muck Boss - 04/21/2009 1837 EST DIVISION OF MANAGEMENT OUTPATIENT PROCEDURE REPORT SERVICE DATE: 12/21/2004 YARD CLERK: Bryant Pace MDWilliam H Megdal, MDTiffini Lake, MD EMBEDDED DEVELOPER: Pankaj Arvizu MD PROCEDURE: L5-S1 interlaminar epidural steroid injection under fluoroscopy. PREPROCEDURE DIAGNOSIS: Chronic back pain and bilateral lower extremity pain. POSTPROCEDURE DIAGNOSIS: Chronic back pain and bilateral lower extremity pain. INTERVAL HISTORY: The patient is a 64-white female who is status post two back surgeries at L4-L5 approximately 20 years ago. She states that for the last 14- 15 years, she has had low back pain and bilateral lower extremity pain which is primarily from the knee down, along the lateral aspect of thecalf, and down into the dorsum of the foot, with numbness into the toes of the left foot, as well. s tates that her pain is more leg pain than it is back pain, but occasionally back discomfort is alsoa problem. She has recently been taking physical therapy, but states she had no relief with that therapy. She has also tried Neurontin in the past, but states she did not tolerate it. She has never had an epidural in the past. She has had an MRI that shows a left L4-L5 disk protrusion. REVIEW OF SYSTEMS: She denies fever or chills. PHYSICAL EXAMINATION: Height 5 feet 4 inches, weight 220 pounds, blood pressure 162/72, pulse 65, respiratory rate 16, and temperature 97.4degrees. The patient is well developed, well nourished, and in no acute distress. She has positive tenderness to palpation along the left lumbar paraspinous area.She is able to perform lumbar flexion and extension without pain or difficulty. She has decreased sensation to light touch over the lateral aspect of the left ankle, but otherwise, she has normal sensation to light touch over both lower extremities. Motor strength is slightly decreased in the leftEHL, but otherwise motor strength is5/5 in all muscle groups tested. ASSESSMENT: Chronic low back pain and bilateral lower extremity pain. PLAN: We will proceed with an epidural steroid injection, and the patient will follow in approximately [address] Joshi. She may return to clinic on a p.r.n. basis. PROCEDURE NOTE: The patient was informed of the risks and benefits of the procedure, and informed consent was obtained. She was placed prone on the fluoroscopy table, and her lumbosacral area was prepped with Hibiclens and draped in sterile fashion. The intended puncture site was anesthetized with 2% lidocaine, and under direct fluoroscopic guidance, an 18-gauge, 3-1/2-inch Tuohy needle was advanced at the L5-S1 interspace using loss of resistance to saline technique. Loss of resistance was easily achieved. There was negative aspiration for blood and CSF. Injection of 1 cc of contrast showed appropriate epidural spread. Then, mg of Depo-Medrol plus 1 cc of 0.25% bupivacaine plus 2 cc of norm al saline was injected. The patient tolerated the procedure well. Dr. Keith was present and participated in the entire procedure. Signed by Jessica Keith MD 12/21/2004 16:26 Lazara Pace MDTiffini Lake, MD Dictated by: Pankaj Arvizu MD Jessica Keith MD - Pankaj Arvizu MD P - lt Job ID: [id number] Document ID: [id number] cc: MD Blayne Bernal MD documented in this encounter Plan of Treatment Not on file documented as of this encounter Visit Diagnoses Not on filedocumented in this encounter
--- OUTSIDE RECORDS SUMMARY | 2023-10-03 21:47 | XMS_ITS | Encounter Summary ---
Author Organization [facility] Address [address] [place] [address] Care Team Providers Care Floor Care Technician Name Role Phone Blayne Bean MD Primary Care Provider Unav ailable Encounter Details Date Type Department Care Team (Late st Contact Info) Description 08/10/2010 Results Only [facility] - [facility] [place] [address] [place] [address] Clifford Crowell, DO [address] [facility] [address] [address] [address] [place], [place] [id number] Social History Tobacco Use Types Packs/Day Years Used Date Smoking Tobacco: Never Assessed Sex and Gender Information Value Date Recorded Sex Assigned at Not on file Gender Identity Not on file Sexual Orientation Not on file documented as of this encounter Plan of Treatment Not on file documented as of this encounter Procedures Procedure Name Priority Date/Time Associated Diagnosis Comments SURGICAL PATHOLOGY Routine 08/10/2010 0:00 EDT documented in this encounter Results * SURGICAL PATHOLOGY (08/10/2010 0:00 EDT) Pathology Report: SURGICAL PATHOLOGY REPORT ? Reports generated via electronic interface contain original data; ? however they are lacking the format of the original report. ? Caution should be taken when reading/interpreti ng unformatted reports. ? Name: ? VINNY, ISRAEL R ? Accession #: ? [id number] ? : ? 1940 (Age: 70) ??F ? Collect Date: ? 08/10/2010 ? Location: ? [facility] ? Receive Date: ? 08/11/2010 ? Provider: CLIFFORD CROWELL DO ? Copy to: BLAYNE BEAN MD ? Final Pathologic Diagnosis: ? A. ?Stomach, antrum, biopsies: ? 1. ?Antral mucosa with reactive gastropathy. ??See comment. ? 2. ? No Helicobacter pylori-like microorganisms identified on H&E-stained ? sections. ? B. ?Stomach, body, polyp, biopsy: ? 1. ?Fundic gland polyp. ? C. ?Esophagus, distal, biopsies: ? 1. ?Squamocolumnar junctional mucosa with chronic inflammation and ? intestinal metaplasia (Pelayo's esophagus). ? 2. ? Negative for dysplasia. ? Comment: ? Specimen (A) shows antral mucosa shows reactive foveolar hyperplasia, ? negligible inflammation, and no Helicobacter pylori. ??These changes suggest ? chemical type injury such as can be seen with non-steroidal anti-inflammatory drugs, alcohol, and bile reflux. ? Document reviewed and electronically signed by: ? NOLA N KALOF MD ? Report ??Date: 08/13/2010 15:43 ? By the signature above, the attending physician certifies that he/she has ? personally conducted a gross and/or microscopic examination of the described ? specimens and rendered or confirmed the above diagnosis. ? Specimen(s) Received: ? A. ?Antrum bx ? B. ? Polyp body of stomach ? C. ? Distal esophagus ? Clinical History: ? Epigastric pain on H2 bita/PPI ? Gross Description: ? Received in formalin labelled [place], [place] are two bassett-white firm ? pieces of tissue which measure 0.4 x 0.3 x 0.2 cm, each and are submitted intact as (A). ? Received in formalin labelled [place], [place] and polyp body of stomach is a 0.4 x 0.3 x 0.2 cm bassett, firm piece of tissue which is submitted intact as (B). ? Received in formalin labelled [place], [place] and distal esophagus are ? three white, focally bassett, firm pieces of tissue which range from 0.3 x 0.2 x 0.2 cm to 0.2 x 0.2 x 0.1 cm, which are submitted intact as (C). ? (Austyn. Ludin)/mpl ? End of Report ? [facility] 08/10/2010 08/11/2010 8:5 2 EDT Clifford Crowell DO PATHOLOGY ORDER LORIN [facility] [address] [place] [address] documented in this encounter Visit Diagnoses Not on filedocumented in this encounter Care Teams Floor Care Technician Relationship Specialty Start Date End Date Blayne Bean MD PCP - General 12/03/09 documented as of this encounter
--- OUTSIDE RECORDS SUMMARY | 2023-10-03 21:47 | XMS_ITS | Encounter Summary ---
Author Organization [facility] Address [address] [place] [address] Care Team Providers Care Grill Attendant Name Role Phone Blayne Bean MD Primary Care Provider Unav ailable Encounter Details Date Type Department Care Team (Late st Contact Info) Description 05/06/2021 Lab Requisition [facility] Pathology & Laboratory Medicine - [address] [id number] Outr Resulting Lab, Provider Social History Tobacco Use Types Packs/Day Years Used Date Smoking Tobacco: Never Assessed Sex and Gender Information Value Date Recorded Sex Assigned at Not on file Gender Identity Not on file Sexual Orientation Not on file documented as of this encounter Plan of Treatment Not on file documented as of this encounter Procedures Procedure Name Priority Date/Time Associated Diagnosis Comments RHEUMATOID FACTOR Routine 05/06/2021 10: 30 EDT ANTI NUCLEAR AB (YUDELKA), IFA Routine 05/06/2021 10:30 EDT documented in this encounter Results * RHEUMATOID FACTOR (05/06/2021 10:30 EDT) Rheumatoid Factor <8.6 <12.0 IU/mL 05/06/2021 21:35 EDT [facility] Blood VENOUS BLOOD / Unknown 05/06/2021 10:30 EDT 05/06/2021 21:02 EDT Provider Outr Resulting Lab CHEMISTRY & BLOOD GAS ORDERABLES [facility] [address] [place] [address] * ANTI NUCLEAR AB (YUDELKA), IFA (05/06/2021 10:30 EDT) YUDELKA Interpretation Negative Negative 2021 13:36 EDT [facility] Comment:No titer performed, YUDELKA Screen is negative. Blood VENOUS BLOOD / Unknown 05/06/2021 10:30 EDT 05/06/2021 21:02 EDT Narrative [facility] - 05/07/2021 13:36 EDT Results were obtained with the INOVA NOVA Lite HEp-2 YUDELKA Kit by indirect immunofluorescence. Provider Outr Resulting Lab IMMUNOLOGY A ND SEROLOGY ORDERABLES [facility] [address] [place] [address] documented in this encounter Visit Diagnoses Not on filedocumented in this encounter Care Teams Grill Attendant Relationship Specialty Start Date End Date Blayne Bean MD PCP - General 12/03/09 documented as of this encounter
--- OUTSIDE RECORDS SUMMARY | 2023-10-03 21:47 | XMS_ITS | Clinical Summary ---
Author Organization [facility] Address [address] [place] [address] Care Team Providers Care Seismic Observer Name Role Phone Blayne Bean MD Primary Care Provider Unav ailable Social History Tobacco Use Types Packs/Day Years Used Date Smoking Tobacco: Never Assessed Sex and Gender Information Value Date Recorded Sex Assigned at Not on file Gender Identity Not on file Sexual Orientation Not on file Plan of Treatment Health Maintenance Due Date Last Done Comments RSV Immunization ( o r 60+ Years) (1 - 1-dose 60+ series) 2002 Fall Risk Screening 2007 COVID-19 Vaccine (2022-24 season) 2022 Care Teams Seismic Observer Relationship Specialty Start Date End Date Blayne Bean MD PCP - General 12/03/09
--- OUTSIDE RECORDS SUMMARY | 2023-10-03 21:47 | XMS_ITS | Encounter Summary ---
Author Organization [facility] Address [address] [place] [address] Care Team Providers Care Printed Circuit Board Panels Trimmer Name Role Phone Blayne Bean MD Primary Care Provider Unav ailable Encounter Details Date Type Department Care Team (Late st Contact Info) Description 09/07/2021 Lab Requisition [facility] Pathology & Laboratory Medicine - [facility] [address] [place] [address] Outr Resulting Lab, Provider Social History Tobacco [...] Procedure Name Priority Date/Time Associated Diagnosis Comments PTH INTACT Routine 09/07/2021 9:20 EDT documented in this encounter Results * PTH INTACT (09/07/2021 9:20 EDT) Intact PTH 43 19 - 88 pg/mL 09/07/2021 23:13 EDT [facility] Blood VENOUS BLOOD / Unknown 09/07/2021 9:20 EDT 09/07/2021 21:14 EDT Provider Outr Resulting Lab CHEMISTRY & BLOOD GAS ORDERABLES [facility] [address] [place] [address] documented in this encounter Visit Diagnoses Not on filedocumented in this encounter Care Teams Printed Circuit Board Panels Trimmer Relationship Specialty Start Date End Date Blayne Bean MD PCP - General 12/03/09 documented as of this encounter
--- OUTSIDE RECORDS SUMMARY | 2023-10-03 21:47 | XMS_ITS | Encounter Summary ---
Author Organization [facility] Address [address] [place] [address] Care Team Providers Care Medical Staff Assistant Name Role Phone Unavailable Primary Care Provider Unavailabl e Encounter Details Date Type Department Care Team (Late st Contact Info) Description 07/25/2005 15:24 EDT Hospital Encounter [facility] - Maple conversion [address] [place] [address] Omaira Parra MD [address] [place] [phone] Discharge Disposition: Auto Discharge Social History Tobacco Use Types Packs/Day Years Used Date Smoking Tobacco: Never Assessed Sex and Gender Information Value Date Recorded Sex Assigned at Not on file Gender Identity Not on file Sexual Orientation Not on file documented as of this encounter Discharge Disposition Disposition Code Departure Means Destination Auto Discharge documented in this encounter Plan of Treatment Not on file documented as of this encounter Visit Diagnoses Not on filedocumented in this encounter
--- OUTSIDE RECORDS SUMMARY | 2023-10-03 21:47 | XMS_ITS | Encounter Summary ---
Author Organization [facility] Address [address] [place] [address] Care Team Providers Care Manager Of Case Name Role Phone Unavailable Primary Care Provider Unavailabl e Encounter Details Date Type Department Care Team (Late st Contact Info) Description 09/18/2005 15:54 EDT - 09/19/2005 11:59 EDT Hospital Encounter [facility] General Surgery Unit [address] [place] [address] Omaira Parra MD [address] [place] [phone] Discharge Disposition: Home or Self Care Social History Tobacco Use Types Packs/Day Years Used Date Smoking Tobacco: Never Assessed Sex and Gender Information Value Date Recorded Sex Assigned at Not on file Gender Identity Not on file Sexual Orientation Not on file documented as of this encounter Discharge Disposition Disposition Code Departure Means Destination Home or Self Care documented in this encounter Plan of Treatment Not on file documented as of this encounter Procedures Procedure Name Priority Date/Time Associated Diagnosis Comments SED RATE Routine 09/19/2005 5:44 EDT COMPLETE BLOOD COUNT AND DIFFERENTIAL Routine 09/19/2005 5:44 EDT C REACTIVE PROTEIN Routine 09/19/2005 5: 44 EDT SED RATE Routine 09/18/2005 14:13 EDT C REACTIVE PROTEIN Routine 09/18/2005 14 :13 EDT documented in this encounter Results * (ABNORMAL) SED. RATE:FATOU (09/19/2005 5:44 EDT) Pathologist [facility] Sed. Rate Rachelarabella 44(H) 0 - 30 mm/hr [facility] 09/19/2005 5:44 EDT 09/19/2005 6:17 EDT Omaira Parra MD HEMATOLOGY & P F4 ORDERABLES Performing Organization Address City/[facility] Co de Phone Number [facility] [address] [place] [address] * (ABNORMAL) C-REACTIVE PROTEIN (09/19/2005 5:44 EDT) [facility] C-Reactive Protein 1.6(H) <1.0 mg/dl [facility] 09/19/2005 5:44 EDT 09/19/2005 6:17 EDT Omaira Parra MD CHEMISTRY & BL OOD GAS ORDERABLES Performing Organization Address [facility] Co de Phone Number [facility] [address] [place] [address] * (ABNORMAL) HEMAGRAM AND DIFFERENTIAL (09/19/2005 5:44 EDT) [facility] WBC 9.49 4.0 - 12.4 K/cmm [facility] RBC 4.67 3.86 - 5.04 M/cmm [facility] Hemoglobin 13.5 11.6 - 15.2 gm/dl [facility] HCT 39.7 34.9 - 44.4 % [facility] MCV 85 81 - 98 fl [facility] MCH 28.9 26.7 - 33.3 pg [facility] MCHC 33.9 32.1 - 35.9 gm/dl [facility] PLT 437(H) 141 - 320 K/cmm [facility] RDW-CV 13.8 11.7 - 14.6 % [facility] % Neutrophils 66.5 45.5 - 79.7 % [facility] % Lymphocytes 22.8 15.0 - 46.8 % [facility] % Monocytes 7.6 1.8 - 12.0 % [facility] % Eosinophils 1.3 0.6 - 6.9 % [facility] % Basophils 1.8(H) 0.2 - 1.4 % [facility] ABS Neutrophils 6.32 2.20 - 8.85 K/cmm [facility] ABS Lymphs 2.16 1.09 - 3.30 K/cmm [facility] ABS Monocytes 0.72 0.1 - 0.8 K/cmm [facility] ABS Eosinophils 0.12 0.03 - 0.61 K/cmm [facility] ABS Basophils 0.17(H) 0.01 - 0.11 K/cmm [facility] Type of Diff: Automated [facility] 09/19/2005 5:44 EDT 09/19/2005 6:17 EDT Omaira Parra MD PACKAGES & DNA PROBE ORDERABLES Performing Organization Address [facility] de Phone Number [facility] [address] [place] [address] * (ABNORMAL) SED. RATE:FATOU (09/18/2005 14:13 EDT) [facility] Sed. Rate Fatou 52(H) 0 - 30 mm/hr [facility] 09/18/2005 14:1 3 EDT 09/18/2005 14:23 EDT Default Emergency HEMATOLOGY & PF4 OR DERABLES Performing Organization Address [facility] de Phone Number [facility] [address] [place] [address] * (ABNORMAL) C-REACTIVE PROTEIN (09/18/2005 14:13 EDT) [facility] C-Reactive Protein 1.6(H) <1.0 mg/dl [facility] 09/18/2005 14:1 3 EDT 09/18/2005 14:23 EDT Default Emergency MD CHEMISTRY & BLOOD G ORDERABLES Performing Organization Address City/State/[facility] Co de Phone Number [facility] [address] [place] [address] documented in this encounter Visit Diagnoses Not on filedocumented in this encounter
--- OUTSIDE RECORDS SUMMARY | 2023-10-03 21:47 | XMS_ITS | Encounter Summary ---
Author Organization [facility] Address [address] [place] [address] Care Team Providers Care Membership Sales Advisor Name Role Phone Unavailable Primary Care Provider Unavailabl e Encounter Details Date Type Department Care Team (Late st Contact Info) Description 05/05/2005 13:14 [facility] Hospital Encounter [facility] - [address] [address] Theo Stinson MD Social History Tobacco Use Types Packs/Day Years [...]
--- OUTSIDE RECORDS SUMMARY | 2023-10-03 21:47 | XMS_ITS | Encounter Summary ---
Author Organization [facility] Address [address] [place] [address] Care Team Providers Care Forensic Investigator Name Role Phone Unavailable Primary Care Provider Unavailabl e Encounter Details Date Type Department Care Team (Late st Contact Info) Description 03/16/2005 Before PRISM Converted Visit ([facility]) [facility] - Maple conversion [address] [place] [address] Jessica Keith MD [address] [place] [address] [place] [phone] Social History Tobacco Use Types Packs/Day Years Used Date Smoking Tobacco: Never Assessed Sex and Gender Information Value Date Recorded Sex Assigned at Not on file Gender Identity Not on file Sexual Orientation Not on file documented as of this encounter Progress Notes * Jessica Keith - 04/22/2009 0515 EST DIVISION OF PAIN MANAGEMENT PROGRESS/FOLLOWUP NOTE - 03/16/2005 INTERVAL HISTORY: Ms. Morley is a 64-year-old woman, who returns to clinic today after receivingthe second in a series of lumbar epidural steroid injection. This patient was seen in followup with Dr. Hurtado and I agree with his assessment and plan. This is a followup visit from an initial referral by Dr. Sosa for continued recommendations onher pain syndrome. Please see Dr. Antunez dictation for history, physical, assessment and plan for details of her followup visit. At this time, we are just going to have her followup on a p.r.n. basis. We had discussed other possible interventional modalities. Secondary to her minimal results from her lumbar epidural steroid injection we will not pursue anything further down this pathway. She is interested in followup with Dr. Aida lizarraga at [facility] to discuss surgical and rehabilitation options. Signed by Jessica Keith MD 03/17/2005 17:35 Bryant Fish MD Jessica Keith MD - Jessica Keith MD P - JM Job ID: [id number] Document ID: [id number] cc: William Joshi MD documented in this encounter Plan of Treatment Not on file documented as of this encounter Visit Diagnoses Not on filedocumented in this encounter
--- OUTSIDE RECORDS SUMMARY | 2023-10-03 21:47 | XMS_ITS | Encounter Summary ---
Author Organization [facility] Address [address] [place] [address] Care Team Providers Care Digital Press Operator Name Role Phone Unavailable Primary Care Provider Unavailabl e Encounter Details Date Type Department Care Team (Late st Contact Info) Description 07/20/2006 Results Only [facility] - Maple conversion [address] [place] [address] Saira Addison, [facility] [address] [place] [phone] Social History Tobacco Use Types Packs/Day Years Used Date Smoking Tobacco: Never Assessed Sex and Gender Information Value Date Recorded Sex Assigned at Not on file Gender Identity Not on file Sexual Orientation Not on file documented as of this encounter Plan of Treatment Not on file documented as of this encounter Procedures Procedure Name Priority Date/Time Associated Diagnosis Comments HPV DETECTION, HIGH RISK TYPES Routine 07/20/2006 18:57 EDT CYTOPATHOLOGY Routine 07/20/2006 0:00 EDT documented in this encounter Results * HUMAN PAPILLOMA VIRUS DNA TEST (07/20/2006 18:57 EDT) Specimen Description Cervix, ThinPrep vial [facility] Result Negative for HPV types 16, 18, 31, 33, 35, 39, 45, 51, 52, 56, 58, 59, and 68. [facility] Report Status Final [id number] [facility] 07/20/2006 18:5 7 EDT 07/26/2006 18:57 EDT Saira Addison NP MICROBIOLOGY - GENE RAL ORDERABLES [facility] [address] [place] [address] * CYTOPATHOLOGY (07/20/2006 0:00 EDT) Pathology Report: CYTOPATHOLOGY REPORT Reports generated via electronic interface contain original data; however they are lacking the format of the original report. Caution should be taken when reading/interpreti ng unformatted reports. Name: ? ISRAEL MORLEY ? Accession #: ? [id number] : ? 1940 (Age: 66) ??F ?Collect Date: ? 07/20/2006 Location: ? [facility] ? Receive Date: ? 07/21/2006 Provider: ?SAIRA ADDISON [facility] Copy to: ? Specimen/Source: ?ThinPrep Pap Test, Cervix/Endocervix, processed on Snocap ThinPrep Imaging System, with manual evaluation Last Menstrual Period: ? 10 yrs Hormonal/Contracep tive Status: ? Yes: Climara patch Other: ? HPVDX - HPV testing requested regardless of diagnosis on current ThinPrep Pap test. ? SPECIMEN ADEQUACY ? Satisfactory for Evaluation - transformation zone component present GENERAL CATEGORIZATION ? Negative for Intraepithelial Lesion or Malignancy ? Document reviewed and electronically signed by: ? LISA Loza(ASCP) ? Report Date: ??07/26/2006 10:19 End of Report [facility] 07/20/2006 07/21/2006 Saira Addison [facility] PATHOLOGY ORDERABLE S Performing Organization Address City/State/[facility] Co de Phone Number [facility] [address] [place] [address] documented in this encounter Visit Diagnoses Not on filedocumented in this encounter
--- OUTSIDE RECORDS SUMMARY | 2023-10-03 21:47 | XMS_ITS | Encounter Summary ---
Author Organization [facility] Address [address] [place] [address] Care Team Providers Care Security System Installer Name Role Phone Unavailable Primary Care Provider Unavailabl e Encounter Details Date Type Department Care Team (Latest Contact Info) Description 12/21/2004 12:45 EST Hospital Encounter [facility] - Maple conversion [address] [place] [address] Jessica Keith MD [address] [place] [address] [place] [phone] Discharge Disposition: Auto Discharge Social History Tobacco [...]
--- OUTSIDE RECORDS SUMMARY | 2023-10-03 21:47 | XMS_ITS | Encounter Summary ---
Author Organization [facility] Address [address] [place] [address] Care Team Providers Care Wet Process Assistant Head Miller Name Role Phone Unavailable Primary Care Provider Unavailabl e Encounter Details Date Type Department Care Team (Late st Contact Info) Description 09/18/2005 Office Visit [facility] [place] conversion [address] [place] [address] Nurse, Emergency Room, Social History Tobacco Use Types Packs/Day Years Used Date Smoking Tobacco: Never Assessed Sex and Gender Information Value Date Recorded Sex Assigned at Not on file Gender Identity Not on file Sexual Orientation Not on file documented as of this encounter Progress Notes * Luke, Conv Machine Fur Cleaner - 04/15/2009 2229 EST Department - Physician Summary Registration Date/Time: 09/18/2005 13:49 Addenda for ISRAEL MORLEY VisitID: [id number] Date: 09/18/2005 09/18/2005 11:16 DR. PARRA REFERRING PT TO ED. R/O WOUND INFECTION. PLEASE PAGE ROYAL PAIZ UNPON ARRIVAL. PT COMING BY CAR. signed by Lizbeth Sawyer - 09/18/2005 11:16) Department - NursingSummary Registration Date/Time: 09/18/2005 13:49 TRIAGE Initial Assessment BP: 134 / 67. HR: 59. RR: 16. Temp: 35.9 tympanic. --1349 Charlene Pastrana R.N. Medications ( albuterol, spivera, verapamil, trazadone hs, protonex, climera, HCTZ, progesterone,). --1349 Charlene Pastrana R.N. Allergies ( loop tape not silk). No known drug allergies. --1350 Charlene Pastrana R.N. History ( Addenda for ISRAEL MORLEY MRN: VisitID: Date: 09/18/2005 09/18/2005 11:16 DR. PARRA REFERRING PT TO ED. R/O WOUND INFECTION. PLEASE PAGE ROYAL PAIZ UNPON ARRIVAL. PT COMING BY CAR. (Electronically signed by Lizbeth Sawyer - 09/18/2005 11:16) ). --1345 Charlene Pastrana R.N. Chief Complaint: ( s/p back sx 09/[address] Parra. Today pain in left leg quite bad.). Pain level now: 4/10. Pain level: at maximum 8/10. --1346 Charlene Pastrana R.N. ( some drainage on dsg noted.). --1347 Charlene Pastrana R.N. PAST HX: ( asthma). --1349 Charlene Pastrana R.N. PAST HX: Hypertension. Heart disease. --1350 Charlene Pastrana R.N. PHYSICAL ASSESSMENT To room via wheelchair. Alert. Appears in no acute distress. Oriented X 3. Respirations not labored. ( CSMTs positive bilateral legs. ). Skin is warm and dry. Normal skin turgor. ( Pt has small woundstill from previous surgery. [place] and dressing intact. ). --1406 Ed Welch Nurse . NURSING PROGRESS NOTES Progress Patient gowned. Head of bed elevated. Side rails up. --1407 Ed Welch Nurse Associate. ( Pt describes pain in left leg as achey. ). --1408 Ed Welch Nurse . ( Dr paiz in to eval. 1/2 inch amie- staple line redness observed, more at R lower aspect of wound. no purulent dng seen. [place] intact. dsg replaced.). --1416 Merline Porter R.N. Blood samples drawn from the left antecubital space with syringe and 21g butterfly by nurse per protocol and sentto lab: purple and tiger top; total amount drawn 12 mL. --1426 Ed Welch Nurse Associate. ( Dr Paiz in to talk w/ pt and . pt amb in room, gait stable. ). --1541 Merline Porter R.N. DISPOSITION / DISCHARGE Admitted ([place] [phone]). Transported via wheelchair by tech. Report was given (Geri). --6226 Bronwyn Farah R.N. Nurse . Merline Porter R.N. Locked/Released at 09/20/2005 7:34 by Merline Espinoza R.N. documented in this encounter Plan of Treatment Not on file documented as of this encounter Visit Diagnoses Not on filedocumented in this encounter
--- OUTSIDE RECORDS SUMMARY | 2023-10-03 21:47 | XMS_ITS | Encounter Summary ---
Author Organization [facility] Address [address] [place] [address] Care Team Providers Care Tunnel Inspector Name Role Phone Unavailable Primary Care Provider Unavailabl e Encounter Details Date Type Department Care Team (Late st Contact Info) Description 10/19/2005 14:17 EDT Hospital Encounter [facility] - Maple conversion [address] [place] [address] Omaira Parra MD [address] [place] [phone] Social History Tobacco Use Types Packs/Day Years [...]
--- OUTSIDE RECORDS SUMMARY | 2023-10-03 21:47 | XMS_ITS | Encounter Summary ---
Author Organization [facility] Address [address] [place] [address] Care Team Providers Care Photography Sales Associate Name Role Phone Unavailable Primary Care Provider Unavailabl e Encounter Details Date Type Department Care Team (Latest Contact Info) Description 04/21/2005 9:10 EST - 04/21/2005 11:59 EST Hospital Encounter [address] [address] Theo Stinson MD Discharge Disposition: Auto Discharge Social History Tobacco [...] Procedure Name Priority Date/Time Associated Diagnosis Comments KNEES STANDING BILATERAL AP 04/21/2005 10:37 EST documented in this encounter Results * KNEES STANDING BILATERAL AP (04/21/2005 10:37 EST) Anatomical Region Laterality Modality Other 04/21/2005 10:3 7 EST Narrative 09/06/2008 12:31 EDT RIGHT KNEE PAIN STANDING BILATERAL KNEES, 04/21/05 CLINICAL HISTORY: Right knee pain. COMPARISONS: Comparison is made to 03/23/05. FINDINGS: A weightbearing view of both knees again shows medial joint space narrowing bilaterally. ??Bony proliferation is seen involving the lateral compartments, as before. ??There has been no significant change from the prior examination. ??Both knees appear relatively symmetric, although there is slightly more bony proliferation on the right compared to the left. D: ??04/25/05 T: ??04/26/05 /[facility] Procedure Note Sasha Chinchilla MD - 09/06/2008 RIGHT KNEE PAIN STANDING BILATERAL KNEES, 04/21/05 CLINICAL HISTORY: Right knee pain. COMPARISONS: Comparison is made to 03/23/05. FINDINGS: A weightbearing view of both knees again shows medial joint space narrowing bilaterally. Bony proliferation is seen involving the lateral compartments, as before. There has been no significant change from the prior examination. Both knees appear relatively symmetric, although there is slightly more bony proliferation on the right compared to the left. /[facility] Theo Stinson MD IMG DIAGNOSTIC IMAGI NG ORDERABLES documented in this encounter Visit Diagnoses Not on filedocumented in this encounter
--- OUTSIDE RECORDS SUMMARY | 2023-10-03 21:47 | XMS_ITS | Encounter Summary ---
Author Organization [facility] Address [address] [place] [address] Care Team Providers Care Visual Merchandiser Name Role Phone Unavailable Primary Care Provider Unavailabl e Encounter Details Date Type Department Care Team (Late st Contact Info) Description 03/16/2005 Before PRISM Converted Visit (Maple) [facility] - Maple conversion [address] [place] [address] Berto Hurtado MD [address] [place] [address] Social History Tobacco Use Types Packs/Day Years Used Date Smoking Tobacco: Never Assessed Sex and Gender Information Value Date Recorded Sex Assigned at Not on file Gender Identity Not on file Sexual Orientation Not on file documented as of this encounter Progress Notes * Luke, Conv Eight Section Blower - 04/22/2009 0515 EST DIVISION OF PAIN MANAGEMENT PROGRESS/FOLLOWUP NOTE - 03/16/2005 PREPROCEDURE DIAGNOSIS: Lumbar degenerative disk disease. POSTPROCEDURE DIAGNOSIS: Lumbar degenerative disk disease. HISTORY: Mrs. Morley is a pleasant 64-year-old female who we originally saw on December 21, 2004,for evaluation of her low back and bilateral lower extremity pain. She had been sent for evaluationat the request of Dr. William Joshi. The patient was status post two surgeries at L4-5 in the early 1980s. For the past 15 years orso, she has been having some progressively worsening low back and b ilateral lower extremity pain. She described her symptoms as primarily in the L5 distribution bilaterally. It was therefore decided on her initial visit to proceed with a L5-S1 translaminar epidural steroid injection. The patient had approximately two to three weeks of 50% benefit in her overall pain. She presented for followup on January 21, 2005. At that time, her pain had returned almost to baseline. It was therefore decided to repeat the translaminar epidural steroid injection at the same level. Today, the patient reports that she again received approximately two to three weeks of pain reduction. This time, the pain on her left leg was more dramatically improved than the pain inher right leg. Today, Mrs. Morley presents with a pain score of 8/10. Today, the majority of her pain is in herright lower extremity. Further questioning reveals that the majority of her pain is in and around the area of her knee. She also states that her right knee is more swollen than usual. She continues to have pain in the bilateral lateral thighs, occasionally extending below the knees into thecalves. Again, this is more significant on the right versus the left. She also continues to complain of bilateral lumbar axial-type pain. Otherwise, there has been no interval changes with respect to the quality, character, location, aggravating or relieving factors of her pain. In the interval since we have seen her, she has had no fevers, chills or other signs of infections. She has not had any incontinence of the bowel or bladder. No significant weakness in the lower extremities. PHYSICAL EXAMINATION: Height 54?? , weight 220 pounds. Blood pressure 140/78. Pulse 57. Respirations 12. Temperature 36.8. A pleasant, well nourished, obese 64-year-old female who is alert and oriented times three and in no acute distress. Her right knee is diffusely tender to palpation on both thelateral and medial surfaces. No significant crepitus is appreciated with range of motion. Motor function is grossly intact in the lower extremities. The remainder of her exam is not repeated today. ASSESSMENT: Lumbar degenerative disk disease. PLAN: Today, we outlined intervention and conservative options with Mrs. Morley and we will proceed as follows: 1. Mrs. Morley has received some significant but short-term benefit from epidural steroid injections. Today, we offered repeating a translaminar epidural steroid injection to attempt to address both sides of her lower extremity pain versus doing a transforaminal epidural steroid injection to address primarily her right lower extremity pain. At this point, Mrs. Morley does not wish to pursuefurther interventional therapy. She wishes to follow up with Dr. Parra and evaluate if she is a candidate for surgery. We also did offer Mrs. Morley lumbar medial branch blocks. However, after further consideration, we feel it is best to wait until she is seen by Dr. Parra and consider performing these after surgery is performed or after a decision is made that she is not a surgical candidate. Mrs. Morley does voice understandingwith these options and will contact us when she wishes to pursue further intervention. 2. With respect to her lower extremity pain, it is likely that she is having some neuropathic component. She has taken Neurontin in the past and had difficulty. There are other medications which could be tried. These include Lyrica, which could be started at a low dose of 25-50 mg at bedtime and then gradually increase to 75 mg b.i.d. as tolerated. Other alternatives would be Topamax, which couldbe started at 25 mgper day at bedtime. This also could be gradually titrated up 50 mg and then possibly 75 mg b.i.d. or t.i.d. pending efficacy of side effects. She would need to have LFTs checked boris monthly basis during dose escalation and then at approximately three,six and twelve month intervals after initiating the medication. This could then be checked on a semiannual basis if no escalations were made. Other options would be Trileptal, which could be started at 150 mg daily and then escalated up to 150 mg b.i.d. The high dose of Trileptal would be 600 mg b.i.d. She would also need to have sodium and LFTs monitored during dose escalation and then in the intervals as described above for Topamax. Dr. Keith was present for and participated in the interview and examination of this patient today. She is in agreement with the above assessment and plan. Signed by Jessica Keith MD 03/17/2005 17:35 Elvira Mackay DOTiffini Lake, MD Dictated by: Berto Hurtado DO Jessica Keith MD - Berto Hurtado DO P - mt Job ID: [id number] Document ID: [id number] cc: S MD William Mayers MD Thomas Ziobrowski, MD documented in this encounter Plan of Treatment Not on file documented as of this encounter Visit Diagnoses Not on filedocumented in this encounter
--- OUTSIDE RECORDS SUMMARY | 2023-10-03 21:47 | XMS_ITS | Encounter Summary ---
Author Organization [facility] Address [address] [place] [address] Care Team Providers Care Aquatic Director Name Role Phone Unavailable Primary Care Provider Unavailabl e Encounter Details Date Type Department Care Team (Latest Contact Info) Description 04/25/2005 11:36 EST - 04/25/2005 11:59 EST Hospital Encounter [facility] Perioperative Services - [address] [address] Theo Stinson MD Discharge Disposition: Home or Self Care Social History Tobacco Use Types Packs/Day Years Used Date Smoking Tobacco: Never Assessed Sex and Gender Information Value Date Recorded Sex Assigned at Not on file Gender Identity Not on file Sexual Orientation Not on file documented as of this encounter Discharge Disposition Disposition Code Departure Means Destination Home or Self Care documented in this encounter OR Notes * OR Surgeon - Theo Stinson MD - 04/25/2005 0000 EST PROCEDURE REPORT PT TYPE: OPPROC PT LOC: [id number] SERVICE DATE: 04/25/2005 SURGEON: Gerald Roberts MDJames G Howe, MD EGG SETTER: ALBA Glasgow PREOPERATIVE DIAGNOSIS: Painful knee, osteoarthritis, degenerative medial meniscus. POSTOPERATIVE DIAGNOSIS: Osteoarthritis with a grade 4 articular cartilage ulcer on medial femoral condyle, torn medial meniscus, torn lateral meniscus, degenerative tears, and a hypertrophied anterior synovium and pathologic medial parapatellar plica. PROCEDURE: Arthroscopic medial and lateral meniscectomies, excision of medial parapatellar plica, anterior synovectomy medially and laterally, and microfracture of medial femoral condyle articular cartilage lesion. ANESTHESIA: Spinal. Dr. Stinson was scrubbed and participated in the entire operation. NARRATIVE: The patient was taken to the operating room, and after adequate anesthesia, was prepped and draped in the routine manner. The arthroscopy was carried out through anteromedial and anterolateral portalsofthe right knee. patient was identified and the site was identified. The tourniquet wasat 300 mmHg. Diagnostic arthroscopy revealed synovitis in the suprapatellar pouch. Coming down intothe trochlear groove, there was grade 3 osteoarthritis in the trochlear groove, but it was very interesting that the medial parapatellar plica, combined with the fat pad, basically came up and the plica was underneath the patella, so that the patella did not articulate with the trochlear groove, that the patella actually, when palpated and when pressure was put on it, articulated with the anterior femur, but the was caught between the patella and the cartilage on the femur. Therefore, we took out the plica using the Xobnis rotary shaver. We also took out a significant amount of scar and synovitis in the anterior compartment, both medially and laterally. Once this was done, it was apparent that there was an articular cartilage ulcer, grade 4, on the medial femoral condyle and that was picked using microfracture technique. Once that was done, we were able to see the medial meniscus. The meniscus was torn in its posterior 40%. It had large horizontal cleavage tear and the inferior portion of the cleavage tear in the posterior third was actually gone. Therefore, using the Dyonics rotary shaver and the basket forceps, we debrided that awaywithout difficulty. The articular cartilage inthe medial compartment, other than the grade 4 articular cartilage ulcer on the femoral condyle, was pretty good, grade 1 and some grade 2. The ACL was intact. lateral compartment showed a significant , very bad tear of the lateral meniscus involving the posterior 60%, right past the area of the popliteus tendon, and was basically worn right through to the popliteus tendon. Therefore, the posterior portion of the meniscus was taken out all the way from the popliteus tendon back 100% and then anteriorly blended in involving the next may be of the meniscus. In doing that, it was apparent that there was a reasonablylarge area of grade 4 osteoarthritis just in the area of the popliteus tendon and slightly anterior to that and a complimentary grade 4 area on the femur. The knee was liberally irrigated The wound was closed with a 4-0 Vicryl simple stitch. Dressings were applied. The patient was returned to the recovery room in satisfactory condition. TOURNIQUET TIME: Approximately 20 minutes. Signed by hTeo Stinson MD 05/10/2005 09:36 Gerald Roberts MD Theo Stinson MD - Theo Stinson MD Aida - bernardo Job ID: [id number] Document ID: [id number] cc: MD Blayne Watkins MD documented in this encounter Plan of Treatment Not on file documented as of this encounter Visit Diagnoses Not on filedocumented in this encounter
--- OUTSIDE RECORDS SUMMARY | 2023-10-03 21:47 | XMS_ITS | Encounter Summary ---
Author Organization [facility] Address [address] [place] [address] Care Team Providers Care Collar Turner Operator Name Role Phone Unavailable Primary Care Provider Unavailabl e Encounter Details Date Type Department Care Team (Late st Contact Info) Description 01/21/2005 Before PRISM Converted Visit (Maple) [facility] - Maple conversion [address] [place] [address] Pankaj Arvizu MD [address] [place] [address] Social History Tobacco Use Types Packs/Day Years Used Date Smoking Tobacco: Never Assessed Sex and Gender Information Value Date Recorded Sex Assigned at Not on file Gender Identity Not on file Sexual Orientation Not on file documented as of this encounter Procedure Notes * Luke, Conv Product Manufacturing Professional - 04/22/2009 1342 EST DIVISION OF MANAGEMENT OUTPATIENT PROCEDURE REPORT SERVICE DATE: 01/21/2005 ATTENDING: Bryant Pace MDWilliam H Megdal, MDTiffini Lake, MD TEA PLANTATION WORKER: Pankaj Arvizu MD PROCEDURE: Intralaminar epidural steroid injection at L5-S1. PREPROCEDURE DIAGNOSIS: Lumbar degenerative disk disease. POSTPROCEDURE DIAGNOSIS: Lumbar degenerative disk disease. INTERVAL HISTORY: The patient was seen on December 21, 2004, and she had an intralaminar epidural steroid injection at L5-S1. The patient states that she had good pain relief that lasted for approximately two weeks. She now has recurrence of lower extremities pain and the worst area is the lateral aspect of the right leg, which runs all the way from the hip down to the ankle. She states that this is severe enough to limit her walking. She also has pain in the lateral aspect of the left leg but this is not as severe as the right leg. She is scheduled to see Dr. Parra for a surgical consultation in March. In the meantime, Dr. Adi perryuggested that she return to the clinic for a repeat epidural steroid injection. REVIEW OF SYSTEMS : She denies fever or chills. EXAMINATION: Height 5 foot 4, weight 220 pounds, blood pressure 158/73, pulse 64, respiration 18, temperature 36.3. She is well-developed, well-nourished and in no acute distress. Further exam deferred. ASSESSMENT: Lumbar degenerative disk disease. PLAN: Intralaminar epidural steroid injection at L5-S1. PROCEDURE: The patient was informed of the risks and benefits of the procedure and informed consentwas obtained. She was placed prone on the fluoroscopy table and her lumbosacral area was prepped with Hibiclens and then draped in sterile fashion. The intended puncture site at L5-S1 was anesthetized with 2% lidocaine and thenunder direct fluoroscopic guidance, a slightly right paramedian approach was taken with a 4-2 17-gauge Tuohy needle, which was advanced under fluoroscopic guidanceusing saline and cmiq-ba-wmoxkqmiia technique. There was heac-ja-xxqroiggov detected. There was negative aspiration for blood and CSF. Then 1 cc of contrast was injected which showed appropriate epidural spread. Then Depo-Mxgqlz93 mg plus 1 cc 0.25% bupivacaine was injected followed by 3 cc of normal saline. The patient tolerated the procedurewell. Post procedure blood pressure was 176/88, pulse 70, respiration 18. Dr. Keith was present and participated in the entire procedure. The patient was observed for approximately 15 minutes following the procedure and then was discharged from the clinicin the company of a patient transportation driver. She will return to the clinic on a p.r.n. basis. Signed by Jessica Keith MD 01/27/2005 12:48 Lazara Pace MDTiffini Lake, MD Dictated by: Pankaj Arvizu MD Jessica Keith MD - Pankaj Arvizu MD P - bb Job ID: [id number] Document ID: [id number] cc: MD Blayne Bernal MD documented in this encounter Plan of Treatment Not on file documented as of this encounter Visit Diagnoses Not on filedocumented in this encounter
--- OUTSIDE RECORDS SUMMARY | 2023-10-03 21:47 | XMS_ITS | Encounter Summary ---
Author Organization [facility] Address [address] [place] [address] Care Team Providers Care Mother'S Helper Name Role Phone Unavailable Primary Care Provider Unavailabl e Encounter Details Date Type Department Care Team (Late st Contact Info) Description 12/01/2009 Results Only [facility] Laboratory Services - [facility] ([facility] [place] [address] [place], [place] [address] Clifford Crowell, DO [address] [facility] [address] [place] [address] Social History Tobacco Use Types Packs/Day Years Used Date Smoking Tobacco: Never Assessed Sex and Gender Information Value Date Recorded Sex Assigned at Not on file Gender Identity Not on file Sexual Orientation Not on file documented as of this encounter Plan of Treatment Not on file documented as of this encounter Procedures Procedure Name Priority Date/Time Associated Diagnosis Comments SURGICAL PATHOLOGY Routine 12/01/2009 0:00 EDT documented in this encounter Results * SURGICAL PATHOLOGY (12/01/2009 0:00 EDT) Pathology Report: SURGICAL PATHOLOGY REPORT ? Reports generated via electronic interface contain original data; ? however they are lacking the format of the original report. ? Caution should be taken when reading/interpreti ng unformatted reports. ? Name: ? VINNY, ISRAEL R ? Accession #: ? [id number] ? : ? 1940 (Age: 69) ??F ? Collect Date: ? 12/01/2009 ? Location: ? [facility] ? Receive Date: ? 12/01/2009 ? Provider: CLIFFORD CROWELL DO ? Copy to: ASHLEY LAINEZ MD ? Final Pathologic Diagnosis: ? A. ?Colon, 55 cm, polypectomy: ? 1. ?Fragments of sessile serrated adenoma. ? B. ?Colon, 50 cm, polypectomy: ? 1. ?Tubular adenoma. ? C. ?Colon, 20 cm, polypectomy: ? 1. ?Tubular adenoma. ? Document reviewed and electronically signed by: ? ARYA MOUNT MD ? Report ??Date: 12/03/2009 15:07 ? By the signature above, the attending physician certifies that he/she has ? personally conducted a gross and/or microscopic examination of the described ? specimens and rendered or confirmed the above diagnosis. ? Specimen(s) Received: ? A. ?Colon polyp 55 cm ? B. ? Colon polyp 50 cm ? C. ? Colon polyp 20 cm ? Clinical History: ? Colorectal screen ? Gross Description: ? Received in [facility] fixative labelled [place], [place] and colon ? polyp 55 cm are two bassett-white, irregular tissue fragments measuring 0.3 x 0.2 x 0.2 cm and 0.4 x 0.2 x 0.2 cm. ??The specimen is entirely submitted as (A). ? Received in [facility]'s fixative labelled Laura Morleya and colon polyp 50 cm is a single, 0.7 x 0.5 x 0.3 cm, bassett-pink, irregular tissue fragment. ??The ?? margin is inked black. ??The specimen is trisected and entirely submitted as (B). ? Received in [facility]'s fixative labelled Israel Morley and colon polyp 20 cm are two bassett-pink, irregular tissue fragments measuring 0.3 x 0.2 x 0.2 cm ?? and 0.4 x 0.2 x 0.1 cm. ??The specimen is entirely submitted as (C). ( ? Jose/[facility] ? End of Report ? TONNY ROBERTS 12/01/2009 12/01/2009 9:2 2 EDT Clifford Crowell DO PATHOLOGY ORDER [facility] [address] [place] [address] documented in this encounter Visit Diagnoses Not on filedocumented in this encounter
--- OUTSIDE RECORDS SUMMARY | 2023-10-03 21:47 | XMS_ITS | Encounter Summary ---
Author Organization [facility] Address [address] [place] [address] Care Team Providers Care Interlacer Name Role Phone Unavailable Primary Care Provider Unavailabl e Encounter Details Date Type Department Care Team (Late st Contact Info) Description 04/22/2004 Results Only [facility] - Maple conversion [address] [place] [address] Saira Addison, GORE MAKER [address] [facility] [address] [place] [address] Social History Tobacco Use Types Packs/Day Years Used Date Smoking Tobacco: Never Assessed Sex and Gender Information Value Date Recorded Sex Assigned at Not on file Gender Identity Not on file Sexual Orientation Not on file documented as of this encounter Plan of Treatment Not on file documented as of this encounter Procedures Procedure Name Priority Date/Time Associated Diagnosis Comments CYTOPATHOLOGY Routine 04/22/2004 0:00 EST documented in this encounter Results * CYTOPATHOLOGY (04/22/2004 0:00 EST) Pathology Report: CYTOPATHOLOGY REPORT Reports generated via electronic interface contain original data; however they are lacking the format of the original report. Caution should be taken when reading/interpreti ng unformatted reports. Name: ? ISRAEL MORLEY ? Accession #: ? [id number] : ? 1940 (Age: 64) ??F ?Collect Date: ? 04/22/2004 Location: ? [facility] ? Receive Date: ? 04/26/2004 Provider: ?SAIRA ADDISON GORE MAKER Copy to: ? Specimen/Source: ?ThinPrep Pap Test, Cervix/Endocervix Last Menstrual Period: ? 1993 Hormonal/Contracep tive Status: ? Yes: Dimara Patch ? SPECIMEN ADEQUACY ? Satisfactory for Evaluation - transformation zone component present GENERAL CATEGORIZATION ? Negative for Intraepithelial Lesion or Malignancy ? Document reviewed and electronically signed by: ? ZACHARY Chandler(ASCP) ? Report Date: ??04/28/2004 14:09 End of Report TONNY ROBERTS 04/22/2004 04/26/2004 Saira Addison NP PATHOLOGY ORDERABLE S TONNY ROBERTS [address] [place] [address] documented in this encounter Visit Diagnoses Not on filedocumented in this encounter
--- OUTSIDE RECORDS SUMMARY | 2023-10-03 21:47 | XMS_ITS | Referral Summary ---
Author Organization [facility] Address [address] [place] [address] Care Team Providers Care Warehouse Coordinator Name Role Phone Blayne Bean MD Primary Care Provider Unav ailable Social History Tobacco Use Types Packs/Day Years Used Date Smoking Tobacco: Never Assessed Sex and Gender Information Value Date Recorded Sex Assigned at Not on file Gender Identity Not on file Sexual Orientation Not on file Plan of Treatment Not on file Care Teams Warehouse Coordinator Relationship Specialty Start Date End Date Blayne Bean MD PCP - General 12/03/09
--- OUTSIDE RECORDS SUMMARY | 2023-10-03 21:47 | XMS_ITS | Encounter Summary ---
Author Organization [facility] Address [address] [place] [id number] Care Team Providers Care Hog Cooler Name Role Phone Blayne Bean MD Primary Care Provider Unav ailable Encounter Details Date Type Department Care Team (Late st Contact Info) Description 12/30/2009 Results Only [facility] - [facility] ([facility]) [address], [place] [id number] Saira Addison, SENIOR COPYWRITER [facility] [address] [place] [id number] Social History Tobacco Use Types [...] Priority Date/Time Associated Diagnosis Comments CYTOPATHOLOGY Routine 12/30/2009 0:00 EST documented in this encounter Results * CYTOPATHOLOGY (12/30/2009 0:00 EST) Pathology Report: CYTOPATHOLOGY REPORT ? Reports generated via electronic interface contain original data; ? however they are lacking the format of the original report. ? Caution should be taken when reading/interpreti ng unformatted reports. ? Name: ? ISRAEL MORLEY ? Accession #: ? [id number] ? : ? 1940 (Age: 69) ??F ?Collect Date: ? 12/30/2009 ? Location: ? [facility] ? Receive Date: ? 01/01/2010 ? Provider: SAIRA L ADDISON SENIOR COPYWRITER ? Copy to: ? Final Report ? SPECIMEN ADEQUACY ? Satisfactory for Evaluation ? - transformation zone component present ? GENERAL CATEGORIZATION ? Negative for Intraepithelial Lesion or Malignancy ? Last Menstural Period: 10 years ? Specimen/Source: ??Pap Test, Cervix/Endocervix, ThinPrep Imaging System with ? manual evaluation ? Document reviewed and electronically signed by: ? Shakeel Watters CT(ASCP) ? Report ??Date: 01/06/2010 09:32 ? HPV with Pap Test ? Date Ordered: ? 01/06/2010 ? Status: ?? Signed Out ?Date Complete: ? 01/11/2010 ? By: ??System Interface ? Date Reported: ? 01/11/2010 ? Interpretation ? RESULT: Negative for HPV types 16, 18, 31, 33, 35, 39, 45, 51, 52, ? 56, 58, 59, and 68. ? Comments ? Document reviewed and electronically signed by: ? System Interface ? Report date: 01/11/2010 ? By the signature above, the attending physician certifies that he/she has ? personally conducted a gross and/or microscopic examination of the described ? specimens and rendered or confirmed the above diagnosis. ? End of Report ? TONNY ROBERTS 12/30/2009 01/01/2010 Saira Addison SENIOR COPYWRITER PATHOLOGY ORDERABLE S [facility] [address] [place] [address] documented in this encounter Visit Diagnoses Not on filedocumented in this encounter Care Teams Hog Cooler Relationship Specialty Start Date End Date Blayne Bean MD PCP - General 12/03/09 documented as of this encounter
--- OUTSIDE RECORDS SUMMARY | 2023-10-03 21:47 | XMS_ITS | Encounter Summary ---
Author Organization [facility] Address [address] [place] [address] Care Team Providers Care Project Control Analyst Name Role Phone Unavailable Primary Care Provider Unavailabl e Encounter Details Date Type Department Care Team (Latest Contact Info) Description 03/16/2005 12:04 [facility] Hospital Encounter [facility] [address] [place] [address] Jessica Keith MD [address] [place] [address] [place] [phone] Discharge Disposition: Auto Discharge Social History [...]
--- OUTSIDE RECORDS SUMMARY | 2023-10-03 21:47 | XMS_ITS | Encounter Summary ---
Author Organization [facility] Address [address] [place] [address] Care Team Providers Care Seconds Handler Name Role Phone Blayne Bean MD Primary Care Provider Unav ailable Encounter Details Date Type Department Care Team (Latest Contact Info) Description 09/29/2014 6:55 EDT - 09/29/2014 23:59 EDT Hospital Encounter [address] [address] Unknown, Provider, Discharge Disposition: Home or Self Care Social History Tobacco Use Types Packs/Day Years Used Date Smoking Tobacco: Never Assessed Sex and Gender Information Value Date Recorded Sex Assigned at Not on file Gender Identity Not on file Sexual Orientation Not on file documented as of this encounter Discharge Disposition Disposition Code Departure Means Destination Home or Self Shelter documented in this encounter Plan of Treatment Not on file documented as of this encounter Visit Diagnoses Not on filedocumented in this encounter Care Teams Seconds Handler Relationship Specialty Start Date End Date Blayne Bean MD PCP - General 12/03/09 documented as of this encounter
--- OUTSIDE RECORDS SUMMARY | 2023-10-03 21:47 | XMS_ITS | Encounter Summary ---
Author Organization [facility] Address [address] [place] [address] Care Team Providers Care Bottle Booth Attendant Name Role Phone Unavailable Primary Care Provider Unavailabl e Encounter Details Date Type Department Care Team (Late st Contact Info) Description 03/23/2005 8:57 EST - 03/23/2005 11:59 EST Hospital Encounter [facility] [address] [place] [address] Omaira Parra MD [address] [place] [phone] Discharge Disposition: Auto Discharge Social History [...] Procedure Name Priority Date/Time Associated Diagnosis Comments KNEE 1 OR 2 VIEWS 03/23/2005 11: 30 EST KNEE 3 VIEWS 03/23/2005 11:29 EST L SPINE 1 VIEW 03/23/2005 10:19 EST documented in this encounter Results * KNEE 1 OR 2 VIEWS (03/23/2005 11:30 EST) Anatomical Region Laterality Modality Other 03/23/2005 11:3 0 EST Narrative 09/19/2008 5:10 EDT BILATERAL KNEE PAIN KNEE 2 VIEWS/LEFT HISTORY: ?? Bilateral knee pain. Two views of the left knee show mild narrowing of both the medial and lateral compartments of the joint space. ??Lateral osteophytes are noted at the joint space that may represent some mild osteoarthritic changes. KNEE 2 VIEWS/RIGHT Two views of the right knee show bony spurring at the tibial spines, medial and lateral aspects of the joint space, and dorsal osteophytes in the patella. ??Joint space appears somv-dk-yvnhpagvxw narrowed both mediolaterally and in the patellofemoral aspect of the joint consistent with osteoarthritic changes. D: ??03/23/05 T: ??03/24/05 /dw Procedure Note Shakeel Mccullough MD - 09/19/2008 BILATERAL KNEE PAIN KNEE 2 VIEWS/LEFT HISTORY: Bilateral knee pain. Two views of the left knee show mild narrowing of both the medial and lateral compartments of the joint space. Lateral osteophytes are noted at the joint space that may represent some mild osteoarthritic changes. KNEE 2 VIEWS/RIGHT Two views of the right knee show bony spurring at the tibial spines, medial and lateral aspects of the joint space, and dorsal osteophytes in the patella. Joint space appears psyb-[id number]-xcprnoowql narrowed both mediolaterally and in the patellofemoral aspect of the joint consistent with osteoarthritic changes. Omaira Parra MD [facility] DIAGNOSTIC IMAGING ORDERABLES * KNEE 3 VIEWS (03/23/2005 11:29 EST) Anatomical Region Laterality Modality Other 03/23/2005 11:2 9 EST Narrative 09/19/2008 5:10 EDT BILATERAL KNEE PAIN KNEE 2 VIEWS/LEFT HISTORY: ?? Bilateral knee pain. Two views of the left knee show mild narrowing of both the medial and lateral compartments of the joint space. ??Lateral osteophytes are noted at the joint space that may represent some mild osteoarthritic changes. KNEE 2 VIEWS/RIGHT Two views of the right knee show bony spurring at the tibial spines, medial and lateral aspects of the joint space, and dorsal osteophytes in the patella. ??Joint space appears yurn-nb-fredlqohro narrowed both mediolaterally and in the patellofemoral aspect of the joint consistent with osteoarthritic changes. D: ??03/23/05 T: ??03/24/05 /dw Procedure Note Shakeel Mccullough MD - 09/19/2008 BILATERAL KNEE PAIN KNEE 2 VIEWS/LEFT HISTORY: Bilateral knee pain. Two views of the left knee show mild narrowing of both the medial and lateral compartments of the joint space. Lateral osteophytes are noted at the joint space that may represent some mild osteoarthritic changes. KNEE 2 VIEWS/RIGHT Two views of the right knee show bony spurring at the tibial spines, medial and lateral aspects of the joint space, and dorsal osteophytes in the patella. Joint space appears jtak-ih-klkffbaxfz narrowed both mediolaterally and in the patellofemoral aspect of the joint consistent with osteoarthritic changes. dw Omaira Parra MD [facility] DI[facility]NOSTIC IMAGING ORDERABLES * L SPINE 1 VIEW (03/23/2005 10:19 EST) Anatomical Region Laterality Modality Other 03/23/2005 10:1 9 EST Narrative 09/19/2008 5:10 EDT LBP. ASSESS ALIGNMENT. AP UPRIGHT VIEW OF THE LUMBAR SPINE: ??03/23/05 @ 1020 CLINICAL HISTORY: Low back pain. 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 ??The SI joints are normal. ??Minimal scoliosis is seen with a left curve. D: ? 03/25/05 T: ? 03/27/05 /amn Procedure Note Cathi Sam MD - 09/19/2008 LBP. ASSESS ALIGNMENT. AP UPRIGHT VIEW OF THE LUMBAR SPINE: 03/23/05 @ 1020 CLINICAL HISTORY: Low back pain. 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 The SI joints are normal. Minimal scoliosis is seen with a left curve. /amn Omaira Parra MD [facility] DIAGNOSTIC IMAGING ORDERABLES documented in this encounter Visit Diagnoses Not on filedocumented in this encounter
--- OUTSIDE RECORDS SUMMARY | 2023-10-03 21:47 | XMS_ITS | Encounter Summary ---
Author Organization [facility] Address [address] [place] [address] Care Team Providers Care Senior Manager Mergers [employer]quisitions Name Role Phone Unavailable Primary Care Provider Unavailabl e Encounter Details Date Type Department Care Team (Late st Contact Info) Description 09/07/2005 7:44 EDT - 09/09/2005 11:59 EDT Hospital Encounter [facility] General Surgery Unit [address] [place] [address] Omaira Parra MD [address] [place] [phone] Discharge Disposition: Home-Health Care Svc Social History Tobacco Use Types Packs/Day Years Used Date Smoking Tobacco: Never Assessed Sex and Gender Information Value Date Recorded Sex Assigned at Not on file Gender Identity Not on file Sexual Orientation Not on file documented as of this encounter Discharge Disposition Disposition Code Departure Means Destination Home-Health Care Svc documented in this encounter OR Notes * OR Surgeon - Fransisca Parra MD - 09/07/2005 0000 EDT PROCEDURE REPORT PT TYPE: IP PT LOC: [id number] SERVICE DATE: 09/07/2005 SURGEON: AKASH Viramontes MDS Elizabeth Ames, MD VP SOFTWARE ENGINEERING: Tj Salmon MD PREOPERATIVE DIAGNOSIS: Spinal stenosis, acquired spondylolisthesis and lumbar radiculopathy at L3-4 and 4-5. POSTOPERATIVE DIAGNOSIS: Spinal stenosis, acquired spondylolisthesis and lumbar radiculopathy at L3-4 and 4-5. PROCEDURE: 1. Laminectomy and bilateral foraminotomy at L3. 2. Reexploration at L4-5 interspace, bilateral. 3. Reexploration at L5-S1 interspace, bilateral. ANESTHESIA: INDICATIONS: Ms. Morley is a woman, who is status post 4-5 and 5-1 decompressions on the left inthe very remote past for disk herniationand radiculopathy. She also has known bilateral knee osteoarthritis. However, recently, she began to developleft greater than right distal calf symptoms, with pain and cramping in her calves and numbness and tingling down into her foot in the L5 distribution.In the left limb, she also has some significant L4 based symptoms in the anterior thigh and knee. Aknee injection relieved symptoms, but not complete. A transforaminal epidural in the L3-4 on the left gave her excellent relief, but only on a short term basis. Plain films indicated facet hypertrophy and a tendency towards at 3-4, endstage disk degeneration and facet arthrosis at 4-5, and her previous laminotomy defect on the left. MRI with gadolinium documented fairly significant lateral recessand foraminal stenosis of the root and lateral recess stenosis with a possible recurrent disk herniation at the L4-5 root. The anatomic findings were also bilateral, although, again, particularly at 4-5, worse on the left than the right. Following discussions of the risks and benefits, she is brought to surgery for a revision decompression. is aware that technically fusion surgery is recommended,given the facet hypertrophy and the trace of instability on her plain films; however, she declined an intervention at this point. FINDINGS: There was quite significant lateral recess stenosis at L4 bilaterally. There was severe scarring at the left L5 root and moderate stenosis of the left L4 root. She did have a complexosteophyte/disk fragment bulge displacing the L4- 5 root on the left, which was removed, including a fragment of disk in the area. The L4 root traverse and the L4 foramen were completely open at the conclusion. The L5 root traverse completely open on the right at the conclusion. The L5 was mobilized and freed of scar as best possible on the left. Bilateral work was done in both reexplored levels. was an arachnoid bubble, which converted to a small dural tear on the right in the L4-5 lateral recess, which required one suture for repair. The dura was sealed with Tisseel at the conclusion. The patient will be maintained on flat bedrest overnight postoperatively. NARRATIVE: The patients identity was verified, consent was verified, and she was brought to the operating room. She received antibiotic prophylaxis as per routine. She was intubated in one attempt byAnesthesia staff without difficulty and transferred to the Prone position on a well padded Alphonso frame. Care was taken to protect her facial genitals, and bony prominences. Her back was prepped anddraped in the usual sterile fashion. Her previous incision was quite long and the upper one-third was instilled with epinephrine for use for her revision procedure. skin was divided with a 10 blade and Bovie cautery used to create a standard subperiosteal dissection from the upper portion of the lamina at 3 down through and over her old surgical site to the inferior border of the lamina at L5. Marking films confirmed our Care was taken to carefully identify the bony landmarks of her previous laminotomy and avoid inadvertent penetration into the canal on the left side. Rwere placed. The spinous process and remaining lamina at 4, the remaining spinous process and lamina at 5, and the distal half of the spinous process and lamina at L3 were then removed with a Leksell rongeur and the laminaewere then thinned. Kerrison punches were then used to enter canal safely at L3, expanding the decompression to allow us to visualize the entire lateral recess at the 3-4 space. We then used a Kerrison, working distally, through her right side, which was previously unoperated, until we had cleared th e canal and then worked tthe left over the superficial scar until the central dura was completely visualized from side to side. In that process, one small dural puncture was created, which was repaired as noted in the findings above. We then began the decompression at the L4 recess bilaterally. A Kerrison punch was used to remove significant soft tissue hypertrophy, facet capsule, and hypertrophied ligamentum flavum. Care was taken not to remove more than 20% of the medial facets at the 3-4 level. We then worked our way back down. After opening the L3-4 foramen and verifying that the 4 root was completelyclear, we began work on the 5 root. On the right side, the identical procedure was done, including a small L5 root foraminotomy. On the left side, we encountered surgical scar. We carefully worked our way through that, identifying the pedicle at 5, mobilizing the nerve root from the pedicle, and then working our way back up into the lateral recess. The findings were as noted above. were no dural tears encountered on that side. At the conclusion of the decompression, both of the foramen for the 5 root and the 4 root were completely free. A small partial medial facetectomy had been done at both the 3-4 and the 4-5 levels on the left, particularly, and at the 3-4 on the right. All nerve roots the central dura were also completely freed. We verified with Valsalva that there was minimal leak from the dural repair and the dura was sealed with Tisseel. The retractors were then removed. The wound was copiously irrigated, being careful not to dislodge the Tisseel, and the lumbodorsal fascia was closed in a running watertight fashion with #1 Vicryl, tsubcutaneous layer was closed with 2-0, and the skin edges with adán. I was scrubbed and present for the duration of this operation. All counts were correct at the end of the case. There were no intraoperative complications. No instrumentation was implanted. Estimated blood loss was minimal. The patient was extubated and taken to recovery in stable condition. Signed by Kathrin Parra MD 09/13/2005 10:10 AKASH Mayers MD Kathrin Parra MD - Kathrin Parra MD A - ljjudson Job ID: [id number] Document ID: [id number] cc: MD Tj Aguilar MD Thomas Ziobrowski, MD documented in this encounter Plan of Treatment Not on file documented as of this encounter Procedures Procedure Name Priority Date/Time Associated Diagnosis Comments CREATININE Routine 09/09/2005 6:00 EDT COMPLETE BLOOD COUNT AND DIFFERENTIAL Routine 09/09/2005 6:00 EDT BUN Routine 09/09/2005 6:00 EDT GLUCOSE, SERUM Routine 09/09/2005 6:00 EDT ELECTROLYTES Routine 09/09/2005 6:00 EDT CREATININE Routine 09/08/2005 5:30 EDT PROTIME Routine 09/08/2005 5:30 EDT COMPLETE BLOOD COUNT AND DIFFERENTIAL Routine 09/08/2005 5:30 EDT BUN Routine 09/08/2005 5:30 EDT GLUCOSE, SERUM Routine 09/08/2005 5:30 EDT ELECTROLYTES Routine 09/08/2005 5:30 EDT L SPINE 1 VIEW 09/07/2005 11:47 EDT L SPINE 1 VIEW 09/07/2005 11:06 EDT documented in this encounter Results * (ABNORMAL) GLUCOSE, SERUM (09/09/2005 6:00 EDT) Glucose, Serum 125(H) 70 - 100 mg/dl [facility] 09/09/2005 6:00 EDT 09/09/2005 7:55 EDT Omaira Parra MD CHEMISTRY & BL OOD GAS ORDERABLES [facility] [address] [place] [address] * (ABNORMAL) ELECTROLYTES (09/09/2005 6:00 EDT) Sodium 136 136 - 145 mEq/L [facility] Potassium 3.3(L) 3.5 - 5.0 mEq/L [facility] Chloride 94(L) 96 - 110 mEq/L [facility] CO2 35(H) 24 - 32 mEq/L [facility] 09/09/2005 6:00 EDT 09/09/2005 7:55 EDT Omaira Parra MD CHEMISTRY & BL OOD GAS ORDERABLES Performing Organization Address [facility] Co de Phone Number [facility] [address] [place] [address] * (ABNORMAL) CREATININE (09/09/2005 6:00 EDT) Creatinine 0.6(L) 0.7 - 1.5 mg/dl [facility] 09/09/2005 6:00 EDT 09/09/2005 7:55 EDT Omaira Parra MD HISTORICAL LAB FOR SQ LOAD Performing Organization Address [facility] de Phone Number [facility] [address] [place] [address] * (ABNORMAL) HEMAGRAM AND DIFFERENTIAL (09/09/2005 6:00 EDT) WBC 12.79(H) 4.0 - 12.4 K/cmm [facility] RBC 3.99 3.86 - 5.04 M/cmm [facility] Hemoglobin 11.6 11.6 - 15.2 gm/dl [facility] HCT 34.9 34.9 - 44.4 % [facility] MCV 87 81 - 98 fl [facility] MCH 29.1 26.7 - 33.3 pg [facility] MCHC 33.3 32.1 - 35.9 gm/dl [facility] PLT 203 141 - 320 K/cmm [facility] RDW-CV 14.6 11.7 - 14.6 % [facility] Neutrophils 78.0 45.5 - 79.7 % [facility] % Bands 1.0 % [facility] Lymphocytes 16.0 15.0 - 46.8 % [facility] Monocytes 5.0 1.8 - 12.0 % [facility] ABS Neutrophils 9.97(H) 2.20 - 8.85 K/cmm [facility] ABS Bands 0.13 K/cmm [facility] ABS Lymphs 2.05 1.09 - 3.30 K/cmm [facility] ABS Monocytes 0.64 0.1 - 0.8 K/cmm [facility] RBC Morphology [facility] WBC Morphology 1+ Vacuolization [facility] Type of Diff: Manual [facility] 09/09/2005 6:00 EDT 09/09/2005 7:55 EDT Omaira Parra MD PACKAGES & DNA PROBE ORDERABLES Performing Organization Address [facility] Phone Number [facility] [address] [place] [address] * BUN (09/09/2005 6:00 EDT) Pathologist [facility] BUN 10 10 - 26 mg/dl [facility] 09/09/2005 6:00 EDT 09/09/2005 7:55 EDT Omaira Parra MD CHEMISTRY & BL OOD GAS ORDERABLES Performing Organization Address [facility] Co ar Phone Number [facility] [address] [place] [address] * (ABNORMAL) GLUCOSE, SERUM (09/08/2005 5:30 EDT) Glucose, Serum 125(H) 70 - 100 mg/dl [facility] 09/08/2005 5:30 EDT 09/08/2005 5:41 EDT Omaira Parra MD CHEMISTRY & BL OOD GAS ORDERABLES Performing Organization Address [facility] Co ar Phone Number [facility] [address] [place] [address] * PROTIME (09/08/2005 5:30 EDT) Pro Time 14.1 12.0 - 15.0 secs [facility] I.N.R. 1.1 0.9 - 1.1 Ratio [facility] Comment: Moderate Intensity Coumadin INR = 2.0-3.0 Adjustments in anticoagulant therapy dose should be based upon the INR and NOT the Pro Time. 09/08/2005 5:30 EDT 09/08/2005 5:41 EDT Omaira Parra MD HEMATOLOGY & P F4 ORDERABLES Performing Organization Address [facility] de Phone Number [facility] [address] [place] [address] * (ABNORMAL) ELECTROLYTES (09/08/2005 5:30 EDT) Pathologist [facility] Sodium 138 136 - 145 mEq/L [facility] Potassium 3.6 3.5 - 5.0 mEq/L [facility] Chloride 99 96 - 110 mEq/L [facility] CO2 34(H) 24 - 32 mEq/L [facility] 09/08/2005 5:30 EDT 09/08/2005 5:41 EDT Omaira Parra MD CHEMISTRY & BL OOD GAS ORDERABLES Performing Organization Address [facility] Phone Number [facility] [address] [place] [address] * CREATININE (09/08/2005 5:30 EDT) Pathologist [facility] Creatinine 0.8 0.7 - 1.5 mg/dl [facility] 09/08/2005 5:30 EDT 09/08/2005 5:41 EDT Omaira Parra MD HISTORICAL LAB FOR SQ LOAD Performing Organization Address [facility] de Phone Number [facility] [address] [place] [address] * (ABNORMAL) HEMAGRAM AND DIFFERENTIAL (09/08/2005 5:30 EDT) Pathologist [facility] WBC 9.82 4.0 - 12.4 K/cmm [facility] RBC 3.91 3.86 - 5.04 M/cmm [facility] Hemoglobin 11.4(L) 11.6 - 15.2 gm/dl [facility] HCT 34.2(L) 34.9 - 44.4 % [facility] MCV 87 81 - 98 fl [facility] MCH 29.1 26.7 - 33.3 pg [facility] MCHC 33.3 32.1 - 35.9 gm/dl [facility] PLT 202 141 - 320 K/cmm [facility] RDW-CV 14.4 11.7 - 14.6 % [facility] % Neutrophils 80.6(H) 45.5 - 79.7 % [facility] % Lymphocytes 11.0(L) 15.0 - 46.8 % [facility] % Monocytes 7.9 1.8 - 12.0 % [facility] % Eosinophils 0.3(L) 0.6 - 6.9 % [facility] % Basophils 0.2 0.2 - 1.4 % [facility] ABS Neutrophils 7.91 2.20 - 8.85 K/cmm [facility] ABS Lymphs 1.08(L) 1.09 - 3.30 K/cmm [facility] ABS Monocytes 0.78 0.1 - 0.8 K/cmm [facility] ABS Eosinophils 0.03 0.03 - 0.61 K/cmm [facility] ABS Basophils 0.02 0.01 - 0.11 K/cmm [facility] Type of Diff: Automated [facility] 09/08/2005 5:30 EDT 09/08/2005 5:41 EDT Omaira Parra MD PACKAGES & DNA PROBE ORDERABLES [facility] [address] [place] [address] * BUN (09/08/2005 5:30 EDT) BUN 14 10 - 26 mg/dl [facility] 09/08/2005 5:30 EDT 09/08/2005 5:41 EDT Omaira Parra MD CHEMISTRY & BL OOD GAS ORDERABLES [facility] [address] [place] [address] * L SPINE 1 VIEW (09/07/2005 11:47 EDT) Anatomical Region Laterality Modality Other 09/07/2005 11:4 7 EDT Narrative 09/06/2008 14:18 EDT SPINAL STENOSIS / PT S/P LAMINECTOMY L3-L4 / BAILEY. DECOMP. L4 PORTABLE LATERAL VIEW OF THE LUMBAR SPINE 1059, 1146 09/07/05 HISTORY: Spinal stenosis at the L3-4 levels. Cross-table portable lateral view of the lumbar spine was obtained initially at 1059 hours and subsequently at 1146 hours. ??The initial film shows a surgical device projecting towards the L2 pedicle and vertebral body as well as one projecting towards the L4 pedicle and vertebral body. ??A third device is present between these two projecting towards the L2-3 disc space. Subsequent image at 1146 hours shows a surgical device projecting at the L3-4 disc space and a second just below the level of the L4-5 disc space. ??Surgical retractor device is also present. D: ??09/07/05 T: ??09/10/05 /jv Procedure Note Pankaj Murguia Jr., MD / Sam Martin MD - 09/06/2008 SPINAL STENOSIS / PT S/P LAMINECTOMY L3-L4 / BAILEY. DECOMP. L4 PORTABLE LATERAL VIEW OF THE LUMBAR SPINE 1059, 1146 09/07/05 HISTORY: Spinal stenosis at the L3-4 levels. Cross-table portable lateral view of the lumbar spine was obtained initially at 1059 hours and subsequently at 1146 hours. The initial film shows a surgical device projecting towards the L2 pedicle and vertebral body as well as one projecting towards the L4 pedicle and vertebral body. A third device is present between these two projecting towards the L2-3 disc space. Subsequent image at 1146 hours shows a surgical device projecting at the L3-4 disc space and a second just below the level of the L4-5 disc space. Surgical retractor device is also present. /shelli Omaira Parra MD [facility] DIAGNOSTIC IMAGING ORDERABLES * L SPINE 1 VIEW (09/07/2005 11:06 EDT) Anatomical Region Laterality Modality Other 09/07/2005 11:0 6 EDT Narrative 09/06/2008 14:18 EDT SPINAL STENOSIS L3,4 LAMINECTOMY CHECK LEVEL PORTABLE LATERAL VIEW OF THE LUMBAR SPINE 1059, 1146 09/07/05 HISTORY: Spinal stenosis at the L3-4 levels. Cross-table portable lateral view of the lumbar spine was obtained initially at 1059 hours and subsequently at 1146 hours. ??The initial film shows a surgical device projecting towards the L2 pedicle and vertebral body as well as one projecting towards the L4 pedicle and vertebral body. ??A third device is present between these two projecting towards the L2-3 disc space. Subsequent image at 1146 hours shows a surgical device projecting at the L3-4 disc space and a second just below the level of the L4-5 disc space. ??Surgical retractor device is also present. D: ??09/07/05 T: ??09/10/05 /shelli Procedure Note Pankaj Murguia Jr., MD / Sam Martin MD - 09/06/2008 SPINAL STENOSIS L3,4 LAMINECTOMY CHECK LEVEL PORTABLE LATERAL VIEW OF THE LUMBAR SPINE 1059, 1146 09/07/05 HISTORY: Spinal stenosis at the L3-4 levels. Cross-table portable lateral view of the lumbar spine was obtained initially at 1059 hours and subsequently at 1146 hours. The initial film shows a surgical device projecting towards the L2 pedicle and vertebral body as well as one projecting towards the L4 pedicle and vertebral body. A third device is present between these two projecting towards the L2-3 disc space. Subsequent image at 1146 hours shows a surgical device projecting at the L3-4 disc space and a second just below the level of the L4-5 disc space. Surgical retractor device is also present. /jv Omaira Parra MD [facility] DI[facility]NO[facility]IC [facility]AGING ORDERABLES documented in this encounter Visit Diagnoses Not on filedocumented in this encounter
--- OUTSIDE RECORDS SUMMARY | 2023-10-03 21:47 | XMS_ITS | Encounter Summary ---
Author Organization [facility] Address [address] [place] [address] Care Team Providers Care Sheep Killer Name Role Phone Unavailable Primary Care Provider Unavailabl e Encounter Details Date Type Department Care Team (Latest Contact Info) Description 06/23/2005 14:10 EDT Hospital Encounter [facility] - [address] [address] Theo Stinson MD Discharge Disposition: Auto Discharge [...]
--- OUTSIDE RECORDS SUMMARY | 2023-10-03 21:47 | XMS_ITS | Encounter Summary ---
Author Organization [facility] Address [address] [place] [address] Care Team Providers Care Cephalometric Analyst Name Role Phone Unavailable Primary Care Provider Unavailabl e Encounter Details Date Type Department Care Team (Latest Contact Info) Description 01/21/2005 11:27 EST - 01/21/2005 11:59 EST Hospital Encounter [facility] [address] [place] [address] Jessica Keith MD [address] [place] [phone] Discharge Disposition: Auto Discharge Social History [...]
--- OUTSIDE RECORDS SUMMARY | 2023-10-03 21:47 | XMS_ITS | Encounter Summary ---
Author Organization [facility] Address [address] [place] [address] Care Team Providers Care Sawmill Equipment Operator Name Role Phone Blayne Bean MD Primary Care Provider Unav ailable Encounter Details Date Type Department Care Team (Late st Contact Info) Description 01/08/2010 Results Only [facility] Services - [facility] [address] [place], [place] [address] [place] [address] [place] [address],[address] [place] [phone] Social History Tobacco Use Types Packs/Day Years Used Date Smoking Tobacco: Never Assessed Sex and Gender Information Value Date Recorded Sex Assigned at Not on file Gender Identity Not on file Sexual Orientation Not on file documented as of this encounter Plan of Treatment Not on file documented as of this encounter Procedures Procedure Name Priority Date/Time Associated Diagnosis Comments SURGICAL PATHOLOGY Routine 01/08/2010 0:00 EST documented in this encounter Results * SURGICAL PATHOLOGY (01/08/2010 0:00 EST) Pathology Report: SURGICAL PATHOLOGY REPORT ? Reports generated via electronic interface contain original data; ? however they are lacking the format of the original report. ? Caution should be taken when reading/interpreti ng unformatted reports. ? Name: ? PEYMAN, ISRAEL R ? Accession #: ? [id number] ? : ? 1940 (Age: 69) ??F ? Collect Date: ? 01/08/2010 ? Location: ? [facility] ? Receive Date: ? 01/09/2010 ? Provider: GURU CISNEROS MD ? Copy to: BLAYNE BEAN MD ? Final Pathologic Diagnosis: ? Endometrium, biopsy: ? - Scant superficial strips of atrophic endometrial epithelia. ??See comment. ? Comment: ? The scant nature of this biopsy precludes further assessment. ??Re-biopsy is recommended, as clinically indicated. ??(Dr. Oliveira)/cassin ? Document reviewed and electronically signed by: ? JULIANNEASEN DEEPTHI MBCHB ? Report ??Date: 01/13/2010 17:23 ? By the signature above, the attending physician certifies that he/she has ? personally conducted a gross and/or microscopic examination of the described ? specimens and rendered or confirmed the above diagnosis. ? Specimen(s) Received: ? Endometrial biopsy ? Clinical History: ? Postmenopausal bleeding ? Gross Description: ? Received in formalin labelled Peyman, [place] and endometrium is a 1.5 x 1.0 x 0.2 cm aggregate of predominantly white, cloudy mucus admixed with ? scant, clear white tissue fragments. ??The specimen is filtered and entirely ? submitted in a single cassette. (Chip Harvey)/[facility] ? End of Report ? [facility] 01/08/2010 01/09/2010 8:3 0 EST Guru Cisneros MD PATHOLOGY ORDERABLES [facility] [address] [place] [address] documented in this encounter Visit Diagnoses Not on filedocumented in this encounter Care Teams Sawmill Equipment Operator Relationship Specialty Start Date End Date Blayne Bean MD PCP - General 12/03/09 documented as of this encounter
--- OUTSIDE RECORDS SUMMARY | 2023-10-03 21:47 | XMS_ITS | Encounter Summary ---
Author Organization [facility] Address [address] [place] [address] Care Team Providers Care Hydraulic Punch Press Operator Name Role Phone Unavailable Primary Care Provider Unavailabl e Encounter Details Date Type Department Care Team (Late st Contact Info) Description 08/22/2005 10:04 EDT Hospital Encounter [facility] - [facility] [address] [place] [address] Omaira Parra MD [address] [place] [phone] Social History Tobacco Use Types Packs/Day [...]
--- OUTSIDE RECORDS SUMMARY | 2023-10-03 21:47 | XMS_ITS | Encounter Summary ---
Author Organization [facility] Address [address] [place] [address] Care Team Providers Care Pump Operator Byproducts Name Role Phone Unavailable Primary Care Provider Unavailabl e Encounter Details Date Type Department Care Team (Late st Contact Info) Description 07/11/2005 17:42 EDT Hospital Encounter [facility], [place] [address] [place] [address] Omaira Parra MD [address] [place] [phone] Discharge Disposition: Auto Discharge Social History [...] Procedure Name Priority Date/Time Associated Diagnosis Comments MR LUMBAR SPINE W/WO CONTRAST 07/11/2005 20:10 EDT documented in this encounter Results * MR LUMBAR SPINE W/WO CONTRAST (07/11/2005 20:10 EDT) Anatomical Region Laterality Modality Other 07/11/2005 20:1 0 EDT Narrative 09/06/2008 13:55 EDT LOW BACK PAIN MRI OF THE LUMBAR SPINE, 07/11/05, 190 IMPRESSION: 1. 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 2. ?Status post previous disk surgery at L4-L5 with recurrent disk herniation. 3. ?Incidental finding of a small fluid-filled cyst in the right kidney. CLINICAL HISTORY: Low back pain. ??Evaluate for disk disease. TECHNIQUE: Sagittal and transverse FSE T1 and T2, coronal FSE T2 weighted non-contrast MR images of the lumbar spine were obtained. Fat- saturated FSE T1 weighted scans were obtained following IV contrast administration. FINDINGS: The vertebral marrow and the cord signal are normal. ??The conus is in normal position at L1. At L1-L2, no abnormalities are identified. At L2-L3, the disk space is narrowed and circumferentially-bulging annulus fibrosus is present but there is no focal disk herniation or spinal stenosis. At L3-L4, disk degeneration is seen, manifested by global disk bulge and facet and ligamentum flavum hypertrophy. ??There is mild bilateral lateral recess narrowing. At L4-l5, postoperative changes are seen. ??Following intravenous enhancement, a small residual disk herniation is also identified at the left side. L5-S1, no significant abnormalities are seen. On the coronal sequences, a small fluid-filled cyst is noted in the right kidney. D: ??07/12/05 T: ??07/13/05 /[facility] Procedure Note Cathi Sam MD - 09/06/2008 LOW BACK PAIN MRI OF THE LUMBAR SPINE, 07/11/05, 190 IMPRESSION: 1. 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 2. Status post previous disk surgery at L4-L5 with recurrent disk herniation. 3. Incidental finding of a small fluid-filled cyst in the right kidney. CLINICAL HISTORY: Low back pain. Evaluate for disk disease. TECHNIQUE: Sagittal and transverse FSE T1 and T2, coronal FSE T2 weighted non-contrast MR images of the lumbar spine were obtained. Fat- saturated FSE T1 weighted scans were obtained following IV contrast administration. FINDINGS: The vertebral marrow and the cord signal are normal. The conus is in normal position at L1. At L1-L2, no abnormalities are identified. At L2-L3, the disk space is narrowed and circumferentially-bulging annulus fibrosus is present but there is no focal disk herniation or spinal stenosis. At L3-L4, disk degeneration is seen, manifested by global disk bulge and facet and ligamentum flavum hypertrophy. There is mild bilateral lateral recess narrowing. At L4-l5, postoperative changes are seen. Following intravenous enhancement, a small residual disk herniation is also identified at the left side. L5-S1, no significant abnormalities are seen. On the coronal sequences, a small fluid-filled cyst is noted in the right kidney. /[facility] Omaira Parra MD IMG MRI ORDERA BLES documented in this encounter Visit Diagnoses Not on filedocumented in this encounter
--- OUTSIDE RECORDS SUMMARY | 2023-10-03 21:47 | XMS_ITS | Encounter Summary ---
Author Organization [facility] Address [address] [place] [address] Care Team Providers Care Wastewater Operator Name Role Phone Unavailable Primary Care Provider Unavailabl e Encounter Details Date Type Department Care Team (Latest Contact Info) Description 12/17/2004 12:15 EDT Hospital Encounter [facility] [place] [address] [place] [address] William Joshi MD Discharge Disposition: Auto Discharge Social History [...] Procedure Name Priority Date/Time Associated Diagnosis Comments L SPINE 2-3 VIEWS 12/17/2004 13: 39 EDT documented in this encounter Results * L SPINE 2-3 VIEWS (12/17/2004 13:39 EDT) Anatomical Region Laterality Modality Other 12/17/2004 13:3 9 EDT Narrative 09/19/2008 3:20 EDT BACK PAIN. R/O DDD. DOI: ? 1979 LUMBAR SPINE, 2 VIEWS HISTORY: Back pain, rule out degenerative disk disease. FINDINGS: Lateral flexion/extension views of the lumbar spine were obtained. There is no evidence of instability. ??There is no evidence for recent or an old fracture of the lumbar vertebrae. There is moderate disk space narrowing from L2 to L5 with anterior osteophyte formation consistent with degenerative disk disease. 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 D: ??12/21/04 T: ??12/22/04 /[facility] Procedure Note Tammy Moya MD - 09/19/2008 BACK PAIN. R/O DDD. DOI: ? 1980 LUMBAR SPINE, 2 VIEWS HISTORY: Back pain, rule out degenerative disk disease. FINDINGS: Lateral flexion/extension views of the lumbar spine were obtained. There is no evidence of instability. There is no evidence for recent or an old fracture of the lumbar vertebrae. There is moderate disk space narrowing from L2 to L5 with anterior osteophyte formation consistent with degenerative disk disease. 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 /[facility] William Joshi MD IMG DIAGNOSTIC IMAG ING ORDERABLES documented in this encounter Visit Diagnoses Not on filedocumented in this encounter
--- OUTSIDE RECORDS SUMMARY | 2023-10-03 21:47 | XMS_ITS | Encounter Summary ---
Author Organization [facility] Address [address] [place] [address] Care Team Providers Care Radial Drill Press Operator Name Role Phone Blayne Bena MD Primary Care Provider Unav ailable Encounter Details Date Type Department Care Team (Late st Contact Info) Description 09/29/2014 Results Only [facility] [phone] Clifford Crowell, DO [address] [facility] [address] [place] [address] Social History Tobacco Use Types [...] Date/Time Associated Diagnosis Comments SURGICAL PATHOLOGY Routine 09/29/2014 18 :28 EDT documented in this encounter Results * SURGICAL PATHOLOGY (09/29/2014 18:28 EDT) Pathology Report: SURGICAL PATHOLOGY REPORT Reports generated via electronic interface contain original data; however they are lacking the format of the original report. Caution should be taken when reading/interpret ing unformatted reports. Name: ? ISRAEL MORLEY ? Accession #: ? [id number] ? : ? 1940 (Age: 74) ??F ? Collect Date: ? 09/29/2014 ? Location: ? [facility] ? Receive Date: ? 09/29/2014 ? Provider: CLIFFORD CROWELL DO Copy to: BLAYNE BEAN MD ? Final Pathologic Diagnosis: A. ??ESOPHAGUS, DISTAL, BIOPSY: - Squamocolumnar junctional mucosa with intestinal metaplasia. - Negative for dysplasia. B. ??ESOPHAGUS, MID, BIOPSY: - Squamous mucosa with mild reactive changes. C. ??ESOPHAGUS, PROXIMAL, BIOPSY: - Squamous mucosa with mild reactive changes. ?? Document reviewed and electronically signed by: HARVINDER FUENTES MD Report ??Date: 10/02/2014 17:25 By the signature above, the attending physician certifies that he/she has personally conducted a gross and/or microscopic examination of the described specimens and rendered or confirmed the above diagnosis. Specimen(s) Received: A. ??Bxs distal esophagus B. ??Bxs mid esophagus C. ??Bxs proximal esophagus Clinical History: History of Pelayo's esophagus Gross Description: A. ?Received in formalin labelled with proper patient identification (initials G, L) and biopsies, distal esophagus are four pink-bassett tissues (0.2 x 0.2 x 0.1 cm to 0.7 x 0.3 x 0.2 cm). Entirely submitted in block A1 and A2. B. ?Received in formalin labelled with proper patient identification (initials G, L) and biopsies mid esophagus are two pink-bassett tissues (0.2 x 0.1 x 0.1 cm and 0.3 x 0.3 x 0.2 cm). Entirely submitted in block B1. C. ?Received in formalin labelled with proper patient identification (initials G, L) and biopsies, proximal esophagus are two pink-bassett tissues (0.2 x 0.2 x 0.1 cm and 0.3 x 0.2 x 0.1 cm). Entirely submitted in block C1. Soila Noland 09/30/2014 8:48 AM End of Report [facility] 09/29/2014 18:2 8 EDT 09/29/2014 18:28 EDT Clifford Crowell DO PATHOLOGY ORDER LORIN Performing Organization Address City/State/[facility] Co de Phone Number [facility] [address] [place] [address] documented in this encounter Visit Diagnoses Not on filedocumented in this encounter Care Teams Radial Drill Press Operator Relationship Specialty Start Date End Date Blayne Bean MD PCP - General 12/03/09 documented as of this encounter
--- OUTSIDE RECORDS SUMMARY | 2023-10-03 21:47 | XMS_ITS | Data Portability ---
Author Organization [place] [facility] Address Ness [place] [place] [address] Assessment Encounter Date Assessment Date Assessment LastModified by Organization Details LastModified Time 01/23/2023 01/23/2023 Recent visit 01-04-23 ? concerns regarding worsening pattern of short term confusion and continued challenges with medication administration at home (related to confusion with medications). Leni presents with her daughter today. Her daughter is helping with medication try preparation. Prior referral for a palliative care consult, now declining. [email or web address] Not available 02/25/2023 23:16:34 03/23/2023 03/23/2023 Recent visit 01-04-23 ? concerns regarding worsening pattern of short term confusion and continued challenges with medication administration at home (related to confusion with medications). Leni presents by herself today. She reports her daughter continues to help with medication tray preparation every week. Prior referral for a palliative care consult, now declining. Pending physical therapy and mica miner blasting referrals. Not available 03/24/2023 14:37:26 06/22/2023 06/22/2023 Total Provider Time TODAY: 35 Minutes Reports her daughter continues to help with medication tray preparation every week. Prior referral for a palliative care consult, now declining. Pending physical therapy and mica miner blasting referrals. [email or web address] Not available 06/22/2023 11:13:33 Plan of Treatment Reminders Order Date Submit Date Provider Last Modified By Organization Details Last Modified Time Details Appointments Follow Up 30 2023 10:40A M Not available Not available Not available Lab CMP, serum or plasma - 1 mint and 1 lav tube collected from right ac. pt tolerated well. [address] [facility] (Registration ), [address] [place] [address] [place], [address], 03/23/2023 16:54:13 CBC - 1 mint and 1 lav tube collected from right ac. pt tolerated well. [address] [facility] (Registration ), [address] [place] [address] [place], [address], 03/23/2023 16:12:04 iron + TIBC + ferritin, serum - 1 mint and 1 lav tube collected from right ac. pt tolerated well. 2023 024 [facility] (Registration ), [address] [place] [address] [place], [address], 03/30/2023 09:50:39 Referral podiatris t referral - Bilateral tinea of the nails, with significa nt nail thickenin g. Requestin g podiatry evaluatio n. 2023 024 [email or web address] [facility], [address] [place] [address] , [place], [address], 09/13/2023 13:56:23 physical therapist referral - Chronic bilateral lymphedem a. prior history of PT. Requestin g to restart PT and lymphedem a therapy. 2023 024 [email or web address] [facility], [address] , [place], [address], 09/13/2023 13:34:10 Procedures None recorded. Surgeries None recorded. Imaging None recorded. Medication Orders escitalop hermann 10 mg tablet 2022 023 [facility], [address] [place], [address], 10/03/2023 11:04:21 gabapenti n 100 mg capsule 2022 023 [facility], [address] [place], [address], 01/23/2023 11:13:30 Advair Diskus 500 mcg-50 mcg/dose powder for inhalatio n 2023 024 [facility], [address] [place], [address], 03/23/2023 11:46:28 albuterol sulfate HFA 90 mcg/actua tion aerosol inhaler 2023 024 [email or web address] [facility], [address] [place] [address], [address], 03/23/2023 11:46:28 buspirone 15 mg tablet 2023 024 [email or web address] [facility], [address] [place] [address], [address], 03/23/2023 11:46:28 trazodone 50 mg tablet 2023 024 [email or web address] [facility], [address] [place] [address], [address], 03/23/2023 11:46:28 Patient TargetsNo targets recorded. Patient Instructions Encounter Date Encounter Id Patient Instructions Last Modified By Organization Details Last Modified Time 01/23/2023 [id number] 3 month follow up. GABAPENTIN increased to twice daily as needed. Referral placed to the LYMPHEDEMA CLINIC at the hospital. Referral placed to PODIATRY - expect a call within 2 weeks to schedule. You may also reach out directly - Phone number: [phone] Please start IRON SUPPLEMENTS - iron ferrous sulfate 325 mg daily and vitamin C 500 mg daily. We will plan on recheck labs in 3 months. [email or web address] Not available 01/23/2023 11:19:01 03/23/2023 [id number] Repeat labs today to check your iron levels. UPDATED MEDICATION LIST - INCRUSE inhaler - once daily. ADVAIR inhaler - twice daily (refilled today. If insurance does not cover, we will need to prescribed another version). ALBUTEROL rescue inhaler - as needed for wheezing. GABAPENTIN - Twice daily as need for pain. TRAZODONE - in the evening to help with sleep. Refilled. LEXAPRO daily - for depression and mood. BUSPIRONE twice daily - for anxiety. Refilled. VERAPAMIL twice daily - for blood pressure. Please start IRON SUPPLEMENTS - iron ferrous sulfate 325 mg daily and vitamin C 500 mg daily. (I prescribed daily Iron). [email or web address] Not available 03/23/2023 10:43:11 06/22/2023 [id number] 3 month follow up. PLEASE CALL AUDIOLOGY TO SCHEDULE FOLLOW UP FOR YOUR HEARING [facility] - [facility] Phone number: [phone] MEDICATION LIST - INCRUSE inhaler - once daily. ADVAIR inhaler - twice daily (refilled today. If insurance does not cover, we will need to prescribed another version). ALBUTEROL rescue inhaler - as needed for wheezing. GABAPENTIN - Twice daily as need for pain. TRAZODONE - in the evening to help with sleep. Refilled. LEXAPRO daily - for depression and mood. BUSPIRONE twice daily - for anxiety. Refilled. VERAPAMIL twice daily - for blood pressure. You can change your IRON SUPPLEMENTS to EVERYOTHER DAY. - iron ferrous sulfate 325 mg daily and vitamin C 500 mg daily. (I prescribed daily Iron). PAIN CONTROL - One option to try a Buspar patch. This medication is an opioid; however, unlike all the other medications you have tried, this is more mild, and better tolerated. If this interests you, please follow up so we can review the medication. I also recommend bringing a family member so we can all discuss the medication. [email or web address] Not available 06/22/2023 09:04:34 Reason for Referral Sleep Lab Technician Referral for Onyc homycosis of toenails Bilateral tinea of the nails, with significant nail thickening. Requesting podiatry evaluation. Referring Physician: Maite Stewart, [facility], Encounter Date: 01/23/2023 Physical Therapist Referral for Peripheral venous insufficiency Chronic bilateral lymphedema. prior history of PT. Requesting to restart PT and lymphedema therapy. Referring Physician: Maite Stewart [facility], Encounter Date: 01/23/2023 Results Created Date Observation Date Name Description Value Unit Range Abnormal Flag LastModifiedBy Organization Detail LastModifiedTime 12/21/1912/20/2022 TSH, serum or plasm a TSH, serum or plasma 1.41 micro intl_ units /mL 0.36-3 .74 normal Not Available Not Available 09/22/2023 11:59:21 12/21/1912/20/2022 trans janet n, serum transferrin, serum 8 % mg/dL 15-50 low Not Available Not Available 11:59:20 12/21/1912/20/2022 iron, serum iron, serum 35 mcg/d L 50-170 low Not Available Not Available 09/22/2023 11:59:19 12/21/1912/20/2022 hemog lobin (Hb), blood hemoglobin (Hb), blood 10.5 g/dL 11.2-1 5.7 low Not Available Not Available 09/22/2023 11:59:19 12/21/1912/20/2022 gluco se, QN [mass /volu me], blood glucose ser 98 mg/dL 74-106 normal Not Available Derm path Diagnostics - [facility] [address], [place], [address], 09/22/2023 11:59:18 12/21/1912/20/2022 drug scree n, urine TIBC (total iron-binding capacity), serum 420 mcg/d L 250-45 0 normal Not Available Not Available 09/22/2023 11:59:17 12/21/1912/20/2022 CMP, serum or plasm a albumin, serum or plasma 3.5 g/dL 3.4-5. 0 normal Not Available Not Available 09/22/2023 11:59:08 12/21/1912/20/2022 CMP, serum or plasm a aniongap 10.0 mmol/ L 3-11 normal Not Available Not Available 09/22/2023 11:59:08 12/21/1912/20/2022 CMP, serum or plasm a bilirubin, total, serum or plasma 0.4 mg/dL 0.2-1. 0 normal Not Available Not Available 09/22/2023 11:59:08 12/21/1912/20/2022 CMP, serum or plasm a BUN (blood urea nitrogen), serum or plasma 24 mg/dL 7-18 high Not Available Not Available 11:59:08 12/21/1912/20/2022 CMP, serum or plasm a calcium, qn, serum or plasma 9.3 mg/dL 8.5-10 .1 normal Not Available Not Available 09/22/2023 11:59:08 12/21/1912/20/2022 CMP, serum or plasm a chloride, serum or plasma 106 mmol/ L 98-107 normal Not Available Not Available 09/22/2023 11:59:08 12/21/1912/20/2022 CMP, serum or plasm a CO2, (carbon dioxide), total, serum or plasma 26.0 mmol/ L 21.0-3 2.0 normal Not Available Not Available 09/22/2023 11:59:08 12/21/1912/20/2022 CMP, serum or plasm a creatinine, serum or plasma 1.2 mg/dL 0.55-1 .02 high Not Available Not Available 09/22/2023 11:59:08 12/21/1912/20/2022 CMP, serum or plasm a eGFR 45.76 (?) mL/mi n/1.7 3m2 mL/min /1.73m 2 Not Available Not Available 09/22/2023 11:59:08 12/21/1912/20/2022 CMP, serum or plasm a potassium, serum or plasma 4.3 mmol/ L 3.5-5. 1 normal Not Available Not Available 09/22/2023 11:59:08 12/21/1912/20/2022 CMP, serum or plasm a protein, total, serum 6.5 g/dL 6.4-8. 2 normal Not Available Not Available 09/22/2023 11:59:08 12/21/1912/20/2022 CMP, serum or plasm a AST/SGOT (aspartate aminotransfe rase), serum or plasma 15 units /L 15-37 normal Not Available Not Available 09/22/2023 11:59:08 12/21/1912/20/2022 CMP, serum or plasm a ALT (alanine aminotransfe rase), serum or plasma 18 units /L 14-59 normal Not Available Not Available 09/22/2023 11:59:08 12/21/1912/20/2022 CMP, serum or plasm a sodium, serum or plasma 142 mmol/ L 136-14 5 normal Not Available Not Available 09/22/2023 11:59:08 12/21/1912/20/2022 CBC % baso auto 1.4 (?) % Not Available Not Available 09/22/19 11:58:56 12/21/1912/20/2022 CBC basoph count 0.07 10 3/uL 10*3/ mm3 0.0-0. 2 normal Not Available Not Available 09/22/2023 11:58:56 12/21/1912/20/2022 CBC eosinophil count, manual, blood 0.04 10 3/uL 10*3/ mm3 0.0-0. 7 normal Not Available Not Available 09/22/2023 11:58:56 12/21/1912/20/2022 CBC eosinophil % 0.8 (?) % Not Available Not Available 09/22/19 11:58:56 12/21/1912/20/2022 CBC hematocrit, automated count, blood 34.4 % 36.0-4 6.0 low Not Available Not Available 09/22/2023 11:58:56 12/21/1912/20/2022 CBC imm granu % 0.4 (?) % Not Available Not Available 09/22/19 11:58:56 12/21/1912/20/2022 CBC lymph count 1.53 10 3/uL 10*3/ mm3 1.2-3. 4 normal Not Available Not Available 09/22/2023 11:58:56 12/21/1912/20/2022 CBC MCH 28.8 pg 27.0-3 3.0 normal Not Available Not Available 09/22/2023 11:58:56 12/21/1912/20/2022 CBC MCHC 30.5 % 32.0-3 6.0 low Not Available Not Available 09/22/2023 11:58:56 12/21/1912/20/2022 CBC MCV, blood 94 fL 80-95 normal Not Available No t Available 09/22/2023 11:58:56 12/21/1912/20/2022 CBC monocyte % 9.7 (?) % Not Available Not Available 09/22/19 11:58:56 12/21/1912/20/2022 CBC monocyte cnt 0.50 10 3/uL 10*3/ mm3 0.1-0. 8 normal Not Available Not Available 09/22/2023 11:58:56 12/21/1912/20/2022 CBC MPV 9.1 fL 8.0-11 .0 normal Not Available Not Available 09/22/2023 11:58:56 12/21/1912/20/2022 CBC neutro count 3.00 10 3/uL 10*3/ mm3 1.2-6. 7 normal Not Available Not Available 09/22/2023 11:58:56 12/21/1912/20/2022 CBC nucl RBC-umd 0.0 % 0.0-0. 3 normal Not Available Not Available 09/22/2023 11:58:56 12/21/1912/20/2022 CBC platelets, auto, blood 170 10 3/uL 10*3/ mm3 130-40 0 normal Not Available Not Available 09/22/2023 11:58:56 12/21/1912/20/2022 CBC PMN % 58.0 (?) % Not Available Not Available 09/22/19 11:58:56 12/21/1912/20/2022 CBC RBC count, blood 3.65 10 6/uL 10*6/ mm3 3.93-5 .22 low Not Available Not Available 09/22/2023 11:58:56 12/21/1912/20/2022 CBC RDW 15.7 % 11.7-1 4.6 high Not Available Not Available 09/22/2023 11:58:56 12/21/19 23 12/20/2022 CBC WBC 5.16 10 3/uL 10*3/ mm3 4.4-10 .8 normal Not Available Not Available 09/22/2023 11:58:56 03/23/19 24 03/23/2023 COMPL ETE BLOOD COUNT NO DIFF WBC 5.61 10_3/ uL 4.4-10 .8 normal Not Available [address] [place], [address] 03/23/2023 16:12:04 03/23/19 24 03/23/2023 COMPL ETE BLOOD COUNT NO DIFF RBC 3.83 10_6/ uL 3.93-5 .22 low Not Available [address] [place], [address] 03/23/2023 16:12:04 03/23/19 24 03/23/2023 COMPL ETE BLOOD COUNT NO DIFF HGB 11.2 g/dL 11.2-1 5.7 normal Not Available [address] [place], [address] 03/23/2023 16:12:04 03/23/19 24 03/23/2023 COMPL ETE BLOOD COUNT NO DIFF HCT 36.1 % 36.0-4 6.0 normal Not Available [address] [place], [address] 03/23/2023 16:12:04 03/23/19 24 03/23/2023 COMPL ETE BLOOD COUNT NO DIFF MCV 94 fL 80-95 normal Not Available [address] [place], [address] 03/23/2023 16:12:04 03/23/19 24 03/23/2023 COMPL ETE BLOOD COUNT NO DIFF MCH 29.2 pg 27.0-3 3.0 normal Not Available [address] [place], [address] 03/23/2023 16:12:04 03/23/19 24 03/23/2023 COMPL ETE BLOOD COUNT NO DIFF MCHC 31.0 % 32.0-3 6.0 low Not Available [address] [place], [address] 03/23/2023 16:12:04 03/23/19 24 03/23/2023 COMPL ETE BLOOD COUNT NO DIFF RDW 15.4 % 11.7-1 4.6 high Not Available [address] [place], [address] 03/23/2023 16:12:04 03/23/19 24 03/23/2023 COMPL ETE BLOOD COUNT NO DIFF platelet count 195 10_3/ uL 130-40 0 normal Not Available [address] [place], [address] 03/23/2023 16:12:04 03/23/19 24 03/23/2023 COMPL ETE BLOOD COUNT NO DIFF MPV 9.4 fL 8.0-11 .0 normal Not Available [address] [place], [address] 03/23/2023 16:12:04 03/23/19 24 03/23/2023 COMPR EHENS DESEAN METAB OLIC PANEL calcium 9.5 mg/dL 8.5-10 .1 normal Not Available [address] [place], [address] 03/23/2023 16:54:12 03/23/19 24 03/23/2023 COMPR EHENS DESEAN METAB OLIC PANEL glucose 97 mg/dL 74-106 normal Not Available [address] [place], [address] 03/23/2023 16:54:12 03/23/19 24 03/23/2023 COMPR EHENS DESEAN METAB OLIC PANEL BUN 25 mg/dL 7-18 high Not Available [address] [place], [address] 03/23/2023 16:54:12 03/23/19 24 03/23/2023 COMPR EHENS DESEAN METAB OLIC PANEL creatinine 1.1 mg/dL 0.55-1 .02 high Not Available [address] [place], [address] 03/23/2023 16:54:12 03/23/19 24 03/23/2023 COMPR EHENS DESEAN METAB OLIC PANEL estimated GFR 50.80 mL/min /1.73m 2 Not Available [address] [place], [address] 03/23/2023 16:54:12 03/23/19 24 03/23/2023 COMPR EHENS DESEAN METAB OLIC PANEL total protein 6.8 g/dL 6.4-8. 2 normal Not Available [address] [place], [address] 03/23/2023 16:54:12 03/23/19 24 03/23/2023 COMPR EHENS DESEAN METAB OLIC PANEL albumin 3.2 g/dL 3.4-5. 0 low Not Available [address] [place], [address] 03/23/2023 16:54:12 03/23/19 24 03/23/2023 COMPR EHENS DESEAN METAB OLIC PANEL bilirubin, total 0.5 mg/dL 0.2-1. 0 normal Not Available [address] [place], [address] 03/23/2023 16:54:12 03/23/19 24 03/23/2023 COMPR EHENS DESEAN METAB OLIC PANEL alk phos 61 U/L 46-116 normal Not Available [address] [place], [address] 03/23/2023 16:54:12 03/23/19 24 03/23/2023 COMPR EHENS DESEAN METAB OLIC PANEL sodium 142 mmol/ L 136-14 5 normal Not Available [address] [place], [address] 03/23/2023 16:54:12 03/23/19 24 03/23/2023 COMPR EHENS DESEAN METAB OLIC PANEL potassium 4.8 mmol/ L 3.5-5. 1 normal Not Available [address] [place], [address] 03/23/2023 16:54:12 03/23/19 24 03/23/2023 COMPR EHENS DESEAN METAB OLIC PANEL chloride 106 mmol/ L 98-107 normal Not Available [address] [place], [address] 03/23/2023 16:54:12 03/23/19 24 03/23/2023 COMPR EHENS DESEAN METAB OLIC PANEL CO2 30.1 mmol/ L 21.0-3 2.0 normal Not Available [address] [place], [address] 03/23/2023 16:54:12 03/23/19 24 03/23/2023 COMPR EHENS DESEAN METAB OLIC PANEL anion gap 5.9 mmol/ L 3-11 normal Not Available [address] [place], [address] 03/23/2023 16:54:12 03/23/19 24 03/23/2023 COMPR EHENS DESEAN METAB OLIC PANEL AST 22 U/L 15-37 normal Not Available [address] [facility] [place], [address] 03/23/2023 16:54:12 03/23/19 24 03/23/2023 COMPR EHENS DESEAN METAB OLIC PANEL ALT 17 U/L 14-59 normal Not Available [address] [facility] [place], [address] 03/23/2023 16:54:12 03/23/19 24 03/23/2023 JANET TIN ferritin 18 NG/mL 8-252 normal Not Available [address] [facility] [place], [address] 03/23/2023 16:54:13 05/22/19 24 05/22/2023 ultra sound imagi ng repor t René t Name: Helen Phillip Unit #: [id number] Loc: DI Orderi ng Provid er: Elmer Cline M.D. Accoun t #: [id number] Status : REG CLI Primar y Care Provid er: MAITE STEWART NP Date of Exam: 03/15 Sex: F Admiss ion Date: : 1940 Age: 83 ------ ------ --- APPROV ED REPORT ------ ------ -- EXAM: Compre hensiv e 2D, Dopple r, and color- flow Echoca rdiogr am Patien t Locati on: Out-Pa tient Sonogr apher: Annelise Gibson , RDCS (AE) Indica tions: LV functi on, MR, A Fib, HTN Other Inform ation Study Qualit y: Adequa te Conclu neema Normal left ventrc iular wall thickn ess and chambe r size. EF is 60%. Wall motion is normal Right ventri charly is normal in size and systol ic functi on Both atria are modera tely dilate d There are no struct ural valvul ar abnorm alitie s Modera te mitral and tricus pid regurg itatio n Estima maddison right ventri cular systol ic pressu re is 48 mmHg Small perica rdial effusi on Wall motion Left Ventri charly The left ventri charly is normal size. The left ventri cular systol ic functi on is normal . The left ventri cular ejecti on fracti on is within the normal range. There is normal left ventri cular wall thickn ess. There is normal LV segmen arslan wall motion . There is no ventri cular septal defect visual ized. LVEF is 60%. Right Ventri charly The right ventri charly is normal size. The right ventri cular systol ic functi on is normal . Atria Left atrium is modera tely dilate d. Right atrium is modera tely dilate d. The intera trial septum is intact with no eviden ce for an atrial septal defect . Aortic Valve The aortic valve is normal in struct ure. Aortic valve is trilea flet. There is no aortic valvul ar stenos is. No aortic regurg itatio n is presen t. Mitral Valve The mitral valve is normal in struct ure. No eviden ce of mitral valve stenos is. Modera te mitral regurg itatio n. Tricus pid Valve The tricus pid valve is normal in struct ure. There is no tricus pid valve stenos is. Modera te tricus pid regurg itatio n. The RVSP is 48.6mm Hg. Pulmon ic Valve The pulmon mylene valve is normal in struct ure. There is no pulmon ic valvul ar stenos is. Trace pulmon ic regurg itatio n. Great Vessel s The aortic root is normal in size. Ascend ing aorta is not well visual ized. Aortic arch is not well visual ized. The IVC collap ses <50% with inspir ation. Perica rdium Small circum ferent ial perica rdial effusi on. 2D Dimens ions IVSD d PLAX 0.66 cm F: 0.6-1. 0 Ao Root d 2.90 cm F: 2.7 - 3.3 LVPW d PLAX 0.73 cm F: 0.6 - 1.0 LVID d PLAX 4.79 cm F: 3.8 - 5.2 LVDs 3.24 cm F: 2.2 - 3.5 LV EF Teichh olz 60.3 % FS 32.21 % LV EDV (Teich ) 106.8 mL LV ESV (Teich ) 42.4 mL Auto EF LV EDV A4C 87.2 mL LV EDV A2C 124.5 mL LV EDV BP 104.0 mL LV ESV A4C 34.1 mL LV ESV A2C 53.0 mL LV ESV BP 43.0 mL LVEF(% ) A4C 60.9 % LVEF(% ) A2C 57.4 % LVEF(% ) BP 58.7 % LV SV A4C 53.1 ml LV SV A2C 71.5 ml LV SV BP 61.0 ml LV CO A4C 4.0 L/min LV CO A2C 5.9 L/min LV CO BP 4.9 L/min HR A4C 75.95 BPM HR A2C 81.82 BPM LV EDV Index (BP) LA Volume LA Length A4C 5.3 cm LA Length A2C 4.7 cm LA Area A4C s 19.97 cm2 LA Area A2C s 19.00 cm2 LA Vol A4C A-L 64.11 mL LA Vol A2C A-L 65.48 mL LA Vol Biplan e A-L 68.8 mL LA Vol/BS A A4C A-L LA Vol/BS A A2C A-L LA Vol/BS A BP A-L 38.2 mL/m2 LA Vol A4C MOD 57.2 mL LA Vol A2C MOD 61.1 mL LA Vol BP MOD 62.5 mL RA Volume RA Area A4C 20.6 cm2 RA ESV A4C (A-L) 63.6mL RA Vol/BS A A4C A-L RA Length A4C 5.7 cm RA ESV A4C (MOD) 61.1mL LV Diasto logy MV E' medial 0.118 (>0.07 m/s) MV E Vmax 0.93 (0.4-1 .3 m/s) MV E/E' MED 7.83 (<14) MV E' latera l 0.139 (>0 .1 m/s) MV E/E' LAT 6.68 (<14) MV E' Averag e 0.129 m/s MV E/E'(a verage ) 7.21 Aortic Valve AoV Vmax 1.55 m/s LVOT Diam s 1.95 cm AoV Peak Grad 9.6 mmHg AoV VTI 0.321 m AoV Mean Rainer. 0.99 m/s AoV Mean Grad 4.6 mmHg Mitral Valve MV DT 216 (160-2 40 msec) MV Vmax TIPS 0.93 m/s MV Mean Grad 1.0 (<2mmH g) MV VTI 0.239 m Pulmon mylene Valve PV Vmax 0.88 (0.5-1 .5 m/s) RVOT Vmax 0.69 m/s PV Peak Grad 3.1 mmHg RVOT Peak Gr. 1.9 mmHg PV Mean Rainer 0.61 m/s RVOT VTI 0.147 m PV Mean Grad 1.7 mmHg RVOT Mean Gr. 1.0 mmHg Tricus pid Valve RA Pressu re 8.00 mmHg TR Vmax 3.19 m/s TV S' 0.11 m/s TR Peak Grad 40.6 mmHg RVSP (TR) 48.6 mmHg Ordere d By: Elmer Cline M.D. CC: ------ ------ ------ ------ ------ ------ ------ ------ ------ ------ ------ ------ - Dictat ed By: Anna Cline M.D. [id number] Transc ribed By: Anna Cline MD 1243 This is privil eged, confid ential inform ation intend ed only for the provid er named. Any use or distri bution by any person other than this provid er is strict ly prohib ited. If you receiv e this report in error, please notify us immedi ately at [phone] and return the origin al report to us at the addres s above. Thank- you. [email or web address] [facility] [address] , [place], [address] 05/23/2023 07:15:11 Result Notes None recorded. Problems Name Status Onset Date Resolution Date Notes Provider Name and Address Organization Details Recorded Time Essential hypertension Active [address], [place], [address] , [facility] 4 10:49:44 Edema Completed 201906/22/[address], [place], [address] , [facility] 4 10:50:42 Anxiety Active [address], [place], [address] , [facility] 4 10:48:49 Bone density finding Completed 201906/22/[address], [place], [address] , [facility] 4 10:50:51 Chronic pain syndrome Active [address], [place], [address] , [facility]. 4 10:49:24 Chronic obstructive pulmonary disease Active 2019 GOLD 3,, severe (FEV1 30-49%) [address], [place], [address] , [facility]. 4 10:56:16 Pelayo's esophagus Active 2019 Declines further endoscopies [address], [place], [address] , [facility]. 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 Elizabeth Shabazz MA null, [facility] 3 10:07:57 Obstructive sleep apnea syndrome Active 2019 Untreated, declines further follow up [address], [place], [address] , [facility] 4 11:00:07 Adult health examination Completed 202006/22/2023 Problem Code: Z00.00; Problem Code Type: ICD-10; [address], [place], [address] , [facility] 4 10:48:52 Cardiac arrhythmia Completed 202106/22/[address], [place], [address] , [facility] 4 10:53:55 Atrial fibrillation Active [address], [place], [address] , [facility] 4 10:54:11 Pain in right hip joint Active [address], [place], [address] , [facility] 4 10:50:13 Joint pain Active [address], [place], [address] , [facility] 4 10:49:54 Mitral valve regurgitation Active [address], [facility] [address] , [facility] 4 10:49:58 Disorder of kidney and/or ureter Completed 202106/22/[address], [facility] [address] , [facility] 4 10:50:46 Nicotine dependence Completed 202101/23/2023 Problem Code: Z87.891; Problem Code Type: ICD-10; BHARATI Shepard, [facility] 3 10:09:07 Peripheral venous insufficiency Active 2021 bilateral w/ lymphedema KARY [address], [facility] [address] , [facility] 4 10:53:43 Counseling Completed 202106/22/[address], [facility] [address] , [facility] 4 10:53:53 Pain of left shoulder joint Active [address], [facility] [address] , [facility] 4 10:50:17 Pain of right shoulder joint Active [address], [facility] [address] , [facility] 4 10:50:20 Disorder of bone Completed 202206/22/[address], [facility] [address] , [facility] 4 10:49:33 Impacted cerumen of bilateral ears Completed 202201/23/2023 Problem Code: H61.23; Problem Code Type: ICD-10; BHARATI Shepard, [facility] 3 10:09:17 Solitary nodule of lung Active 2022 MAITE STEWART, KARY [address], [place], [address] , [facility] 4 10:50:28 Fatigue Active [address], [facility] [address] , [facility] 4 10:49:48 Hearing loss of right ear Active 2022 KARY GATICA [address], [facility] [address] , [facility] 4 10:49:51 Headache Completed 201905/26/2020 Problem Code: R51; Problem Code Type: ICD-10; Not Available [facility] 3 05:10:03 Screening for disorder Completed 201905/26/2020 Problem Code: Z13.89; Problem Code Type: ICD-10; Not Available [facility] 3 05:10:04 Malnutrition screening Completed 201905/26/2020 Problem Code: Z13.21; Problem Code Type: ICD-10; Not Available [facility] 3 05:10:04 Abnormal weight loss Completed 201905/26/2020 Problem Code: R63.4; Problem Code Type: ICD-10; Not Available [facility] 3 05:10:04 Impacted cerumen Completed 202211/16/2022 Problem Code: H61.20; Problem Code Type: ICD-10; Not Available [facility] 3 05:10:04 Anemia Active [address], [facility] [address] , [facility] 4 22:56:41 Mixed anxiety and depressive disorder Active [address], [facility] [address] , [facility] 4 22:56:36 Renal insufficiency Active [address], [facility] [address] , [facility] 4 22:57:53 Onychomycosis of toenails Active [address], [facility] [address] , [facility] 4 23:12:59 Bilateral cramp of muscle of lower limbs Active [address], [facility] [address] , [facility] 4 10:24:52 Anticoagulant therapy Active [address], [facility] [address] , [facility] 4 10:54:28 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 Procedures Surgical History None recorded. Imaging Results Imaging Date Name Status LastModified by Renaldo mcbride Details LastModified Time 05/22/2023 ultrasound imaging report completed [facility] [address], [address] 05/23/2023 07:15:11 Procedure Notes None recorded. Medical Equipment None Reported. Allergies Allergen ID Allergen Name Allergen Category Reaction Reaction Severity Criticality Documentation Date Start Date Code Code System Note Provider Name and Address Organization Details Recorded Time 31828 adhesive tape environme nt,medica tion Not available Not available Not available 01/04[facility]2023 [facility] 3 11:39:55 67936 ibuprofen medicatio n Not available Not available Not available 01/04/2023 5640 RxNorm BHARATI BENDER [facility] 3 11:40:53 Medications Name Sig Start Date Stop Date Status Note LastModified by Organization Details LastModified Time Colace 100 mg capsule Take 1 cap by mouth twice daily as needed 2019 active Not Available Not Available Not Avai lable naproxen 375 mg tablet TAKE ONE TABLET BY MOUTH TWICE A DAY NEEDED FOR PAIN 04/01 completed Not Available Not Available Not Available verapamil 40 mg tablet TAKE ONE TABLET BY MOUTH TWICE A DAY active Not Available Not Available No t Available trazodone 50 mg tablet TAKE ONE TABLET BY MOUTH AT BEDTIME NEEDED FOR SLEEP active Not Available Not Available No t Available triamcinolo ne acetonide 0.025 % lotion APPLY TO AFFECTED AREA(S) TWO TIMES A DAY NEEDED FOR SKIN CHAFING active Not Available Not Available No t Available magnesium oxide 400 mg (241.3 mg magnesium) tablet TAKE ONE TABLET BY MOUTH TWICE A DAY active Not Available Not Available No t Available fluticasone 500 mcg-salmete rol 50 mcg/dose blistr powdr for inhalation active Not Available Not Available N ot Available bupropion HCl 75 mg tablet Take 1 tablet by mouth once a day 12/07 completed Not Available Not Available Not Available omeprazole 20 mg capsule,del ayed release TAKE ONE CAPSULE BY MOUTH EVERY DAY active Not Available Not Available No t Available gabapentin 100 mg capsule TAKE ONE CAPSULE BY MOUTH TWICE A DAY NEEDED active Not Available Not Available No t Available Ativan 0.5 mg tablet Take 1 tablet by mouth twice a day as needed 11/23 completed Not Available Not Available Not Available albuterol sulfate HFA 90 mcg/actuati on aerosol inhaler INHALE TWO PUFFS BY MOUTH EVERY 6 HOURS active Not Available Not Available No t Available buspirone 15 mg tablet TAKE ONE TABLET BY MOUTH TWICE A DAY active Not Available Not Available No t Available oxycodone 5 mg tablet TAKE ONE TABLET BY MOUTH TWICE A DAY 01/04 completed Not Available Not Available Not Available escitalopra m 10 mg tablet TAKE 1 TABLET BY MOUTH DAILY 10/02 completed Not Available Not Available Not Available Lexapro 20 mg tablet Take 1 tablet by mouth once a day active Not Available Not Available No t Available Vitamin D3 25 mcg (1,000 unit) tablet take 1 capsule daily 2019 active Not Available Not Available Not Avai lable Vitamin D3 25 mcg (1,000 unit) capsule TAKE ONE CAPSULE BY MOUTH EVERY DAY 01/04 completed Not Available Not Available Not Available duloxetine 60 mg capsule,del ayed release Take 1 tab by mouth daily 2019 active Not Available Not Available Not Avai lable fentanyl 12 mcg/hr transdermal patch Apply 1 patch to skin every 72 hours 01/23 completed Not Available Not Available Not Available acetaminoph en take 6 daily as needed. active Not Available Not Available No t Available hydrochloro thiazide 12.5 mg tablet TAKE ONE TABLET BY MOUTH EVERY DAY 01/04 completed Not Available Not Available Not Available Eliquis 5 mg tablet Take 1 tablet by mouth twice a day (blood thinner) 10/18 completed Not Available Not Available Not Available Eliquis 2.5 mg tablet TAKE ONE TABLET BY MOUTH TWICE A DAY (BLOOD THINNER) active Not Available Not Available No t Available Breo Ellipta 100 mcg-25 mcg/dose powder for inhalation Inhale 1 puff every day by inhalatio n route. 05/09 completed Not Available Not Available Not Available Incruse Ellipta 62.5 mcg/actuati on powder for inhalation INHALE ONE PUFF BY MOUTH EVERY DAY active Not Available Not Available No t Available Vitals Date Recorded Body height Body mass index (BMI) Body weight Body temperature Oxygen saturation Oxygen saturation in Arterial blood by Pulse oximetry Heart rate Systolic blood pressure Diastolic blood pressure Provider Name and Address Organization Details Last Updated DateTime 3 160.02 cm 32 kg/m2 71093.5 g 97.6 [degF] 99 % 99 % 83 /min 128 mm[Hg] 62 mm[Hg] ADITI PICKENS MA [facility] 3 11:39:34 Date Recorded Body height Body mass index (BMI) Body weight Body temperature Oxygen saturation Oxygen saturation in Arterial blood by Pulse oximetry Heart rate Systolic blood pressure Diastolic blood pressure Provider Name and Address Organization Details Last Updated DateTime 3 160.02 cm 30.7 kg/m2 55286.9 2 g 97.7 [degF] 97 % 97 % 78 /min 138 mm[Hg] 75 mm[Hg] Elizabeth Shabazz MA [facility] 3 10:43:37 Date Recorded Body height Body mass index (BMI) Body weight Body temperature Oxygen saturation Oxygen saturation in Arterial blood by Pulse oximetry Heart rate Systolic blood pressure Diastolic blood pressure Provider Name and Address Organization Details Last Updated DateTime 4 160.02 cm 29.6 kg/m2 09988.9 3 g 97.4 [degF] 96 % 96 % 70 /min 129 mm[Hg] 75 mm[Hg] Elizabeth Shabazz MA [facility], [facility]. 4 10:07:42 Date Recorded Body height Body mass index (BMI) Body weight Heart rate Oxygen saturation Oxygen saturation in Arterial blood by Pulse oximetry Body temperature Systolic blood pressure Diastolic blood pressure Provider Name and Address Organization Details Last Updated DateTime 4 160.02 cm 28.5 kg/m2 08758.0 7 g 91 /min 96 % 96 % 97.6 [degF] 119 mm[Hg] 70 mm[Hg] Elizabeth Shabazz MA [facility], [facility] 4 08:38:47 Date Recorded Body height Body mass index (BMI) Body weight Body temperature Heart rate Oxygen saturation Oxygen saturation in Arterial blood by Pulse oximetry Systolic blood pressure Diastolic blood pressure Provider Name and Address Organization Details Last Updated DateTime 4 160.02 cm 26.8 kg/m2 52905.1 5 g 97.9 [degF] 88 /min 97 % 97 % 125 mm[Hg] 75 mm[Hg] Elizabeth Shabazz MA [facility] 11:07:05 Social History None recorded. Functional Status None recorded. Mental Status None recorded. Family History Nothing Reported. Medical History No medical history recorded. Gynecological HistoryNo gynecological history recorded. Obstetrics History GPAL:G 0 P 0 0 0 0 Immunizations Vaccine Type Date Status Provider Name and Address Organization Details Recorded Time pneumococcal, unspecified formulation 05/12/2014 completed Not Available [facility] 12/30/2022 06:25:22 Tdap 10/02/2012 completed Not Available [facility] 06:25:22 zoster live 03/12/2007 completed Not Available [facility] 12/30/2022 06:25:22 Influenza, high-dose, quadrivalent, PF 11/30/2021 completed Not Available [facility] 12/30/2022 06:25:22 Influenza, high-dose, quadrivalent, PF 01/05/2021 completed Not Available [facility] 12/30/2022 06:25:22 SARS-COV-2 (COVID-19) vaccine, UNSPECIFIED 04/03/2020 completed Not Available [facility] 12/30/2022 06:25:22 SARS-COV-2 (COVID-19) vaccine, UNSPECIFIED 05/01/2020 completed Not Available [facility] 12/30/2022 06:25:22 SARS-COV-2 (COVID-19) vaccine, UNSPECIFIED 01/21/2021 completed Not Available [facility] 12/30/2022 06:25:22 COVID-19, mRNA, LNP-S, bivalent, PF, 30 mcg/0.3 mL dose 01/06/2022 completed Not Available [facility] 12/31/19 06:25:22 pneumococcal polysaccharide PPV23 10/13/2009 completed Not Available [facility] 2022 06:25:23 influenza, unspecified formulation 12/06/2016 completed Not Available [facility] 12/30/2022 06:25:23 influenza, unspecified formulation 12/13/2018 completed Not Available [facility] 12/30/2022 06:25:23 influenza, unspecified formulation 12/17/2019 completed Not Available [facility] 12/30/2022 06:25:23 Influenza, high-dose, quadrivalent, PF 12/20/2022 completed Not Available [facility] 03/03/2023 05:31:02 Past Encounters Encounter ID Performer Location Encounter Start Date Encounter Closed Date Diagnosis/Indication Diagnosis SNOMED-CT Code [id number] MAITE STEWART [facility] [address] [place] [address] 01/04/2023 11:30:26 01/04/2023 12:51:11 Medication monitoring 787077277 Counseling 079122126 Anxiety 59084886 [id number] MAITE STEWART [facility] [address] [place] [address] 01/23/2023 10:27:05 01/23/2023 12:21:07 Chronic pain syndrome 891709926 Atrial fibrillation 4943 6004 Essential hypertension 61598476 Anemia 498090844 Mixed anxi ety and depressive disorder 170855880 Chronic ob structive pulmonary disease 30014595 Renal insufficiency 7231 14378 Peripheral venous insufficiency 76152949 Pelayo's esophagus 3029 26849 Onychomyco sis of toenails 129077288 [id number] MAITE STEWART [facility] [address] [place] [address] 03/23/2023 09:55:48 03/23/2023 11:04:43 Chronic pain syndrome 917179617 Atrial fibrillation 4943 6004 Essential hypertension 22319667 Anemia 077305024 Mixed anxi ety and depressive disorder 623608591 Chronic ob structive pulmonary disease 12210443 Renal insufficiency 7231 90651 Peripheral venous insufficiency 15252954 Pelayo's esophagus 3029 37459 Fatigue 85669747 Bilateral cramp of muscle of lower limbs 81692777446969 [id number] MAITE STEWART [facility] [address] [place] [address] 06/22/2023 08:20:09 06/22/2023 09:17:06 Fatigue 89834974 Bilateral cramp of muscle of lower limbs 79091945493269 107 Anemia 683894183 Chronic pain syndrome 37 3692638 Atrial fibrillation 4943 6004 Essential hypertension 48767169 Mixed anxi ety and depressive disorder 941606195 Chronic ob structive pulmonary disease 96823089 Renal insufficiency 7231 08794 Peripheral venous insufficiency 61078288 Pelayo's esophagus 3029 00564 Obstructiv e sleep apnea syndrome 23278097 Benign angel plasm of colon 25245405 [id number] Monicajeannette Jung [facility] [address] [place] [address] 10/03/2023 10:39:08 10/03/2023 11:43:27 Fatigue 65741581 Anemia 914538637 Chronic pain syndrome 37 6901496 Atrial fibrillation 4943 6004 Essential hypertension 01707985 Mixed anxi ety and depressive disorder 641585410 Chronic ob structive pulmonary disease 29313388 Renal insufficiency 7231 26087 Peripheral venous insufficiency 84804548 Bilateral cramp of muscle of lower limbs 82145951973540 107 Obstructiv e sleep apnea syndrome 32712936 Intermitte nt confusion 146151850 Health Concerns Section Related Observation LastModified by Organization Detai ls LastModified Time None Recorded Concern Status LastModified by Organization Details LastModified Time None Recorded Advance Directives Directive None Recorded Payers Encounter Date Sequence Insurance Name Policy Number Policy Rodriguez Covered Member ID Rodriguez Member ID Guarantor Name 01/04/2023 1 *SELF PAY* Helen Morley 01/23/2023 2 [employer] (MEDICAID) Leni Morley [id number] Leni Morley 01/23/2023 1 [place] [employer] Leni Priya Morley [id number] Leni Priya Morley 03/23/2023 2 [employer] (MEDICAID) Leni Morley [id number] Leni Morley 03/23/2023 1 [place] Leni Morley [id number] Leni Morley 06/22/2023 2 [employer] (MEDICAID) Leni Morley [id number] Leni Morley 06/22/2023 1 [place] Leni Morley [id number] Leni Morley Notes Date Note Type Note Provider Name and Address Organization Details Recorded Time 01/04/2023 text/html HPI Notes: Leni presents to [facility] for medication follow-up. Complex medical history, to include anxiety and depression, A. fib, COPD, hypertension, JOSE ANGEL, kidney disease, and chronic pain syndrome. Recent challenges with chronic pain control. Recent concerns with overusing Tylenol. Leni presents with her daughter today. Primary concern today is recent onset of fatigue and mood lability. KARY [address], [place], [address], [place] [facility]. 01/04/2023 12:57:31 01/23/2023 text/html HPI Notes: Leni presents with her daughter Fabiola to [facility] for medication follow-up. Complex medical history, to include anxiety and depression, A. fib, COPD, hypertension, JOS EANGEL, kidney disease, and chronic pain syndrome. Recent challenges with chronic pain control. Recent concerns with overusing Tylenol. [address], [place], [address], [place] [facility]. 02/25/2023 23:17:06 03/23/2023 text/html HPI Notes: Leni presents to [facility] for medication follow-up, and a focus on chronic fatigue and depression. Complex medical history, to include anxiety and depression, A. fib, COPD, hypertension, JOSE ANGEL, kidney disease, and chronic pain syndrome. Recent challenges with chronic pain control + concerns with overusing Tylenol. Active referrals to physical therapy and podiatry. KARY [address], [place], [address], [place] [facility]. 03/24/2023 14:41:18 06/22/2023 text/html HPI Notes: Leni presents to [facility] for medication follow-up, and a focus on chronic fatigue and depression. Complex medical history, to include anxiety and depression, A. fib, COPD, hypertension, JOSE ANGEL, kidney disease, and chronic pain syndrome. Recent challenges with chronic pain control + concerns with overusing Tylenol. Active referrals to physical therapy and podiatry. MAITE STEWART, KARY [address], [place], [address], [facility]. 06/22/2023 11:14:11 OBGyn Episode No OBEpisode recorded.
--- OUTSIDE RECORDS SUMMARY | 2023-10-03 21:47 | XMS_ITS | Encounter Summary ---
Author Organization [facility] Address [address] [place] [address] Care Team Providers Care Lumber Planer Name Role Phone Unavailable Primary Care Provider Unavailabl e Encounter Details Date Type Department Care Team (Latest Contact Info) Description 08/22/2005 10:14 EDT - 09/03/2005 11:59 EDT Hospital Encounter [facility] [address] [place] [address] Blayne Bean MD Discharge Disposition: Admitted to this Hospital Social History Tobacco Use Types Packs/Day Years Used Date Smoking Tobacco: Never Assessed Sex and Gender Information Value Date Recorded Sex Assigned at Not on file Gender Identity Not on file Sexual Orientation Not on file documented as of this encounter Discharge Disposition Disposition Code Departure Means Destination Admitted to this Hospital documented in this encounter Plan of Treatment Not on file documented as of this encounter Visit Diagnoses Not on filedocumented in this encounter
--- OUTSIDE RECORDS SUMMARY | 2023-10-03 21:48 | XMS_ITS | Encounter Summary ---
Author Organization [facility] Address [address] [place] [address] Care Team Providers Care Manager Background Name Role Phone Unavailable Primary Care Provider Unavailabl e Encounter Details Date Type Department Care Team (Late st Contact Info) Description 04/15/2003 Results Only [facility] [address] [place] [address] Saira Addison, PAVING FOREMAN [address] [place] [address] Social History Tobacco Use Types [...] Priority Date/Time Associated Diagnosis Comments CYTOPATHOLOGY Routine 04/15/2003 0:00 EST documented in this encounter Results * CYTOPATHOLOGY (04/15/2003 0:00 EST) Pathology Report: CYTOPATHOLOGY REPORT Reports generated via electronic interface contain original data; however they are lacking the format of the original report. Caution should be taken when reading/interpreti ng unformatted reports. Name: ? ISRAEL MORLEY ? Accession #: ? [id number] : ? 1940 (Age: 63) ??F ?Collect Date: ? 04/15/2003 Location: ? [facility] ? Receive Date: ? 04/17/2003 Provider: ?SAIRA ADDISON PAVING FOREMAN Copy to: ? Specimen/Source: ?ThinPrep Pap Test, Cervix/Endocervix Last Menstrual Period: ? 17 years Previous Gynecologic Pathology: ? ASC-US ? SPECIMEN ADEQUACY ? Satisfactory for Evaluation - transformation zone component present GENERAL CATEGORIZATION ? Negative for Intraepithelial Lesion or Malignancy ? Document reviewed and electronically signed by: ? Audrey Thomas, SCT(ASCP) ? Report Date: ??04/23/2003 11:02 End of Report TONNY ROBERTS 04/15/2003 04/17/2003 Saira Addison NP PATHOLOGY ORDERABLE S TONNY ROBERTS [address] [place] [address] documented in this encounter Visit Diagnoses Not on filedocumented in this encounter
--- OUTSIDE RECORDS SUMMARY | 2023-10-03 21:48 | XMS_ITS | Encounter Summary ---
Author Organization [facility] Address [address] [place] [address] Care Team Providers Care Business Librarian Name Role Phone Unavailable Primary Care Provider Unavailabl e Encounter Details Date Type Department Care Team (Late st Contact Info) Description 03/16/2000 Results Only [facility] [address] [place] [address] Saira Addison, CARPENTER'S ASSISTANT [address] [place] [address] Social History Tobacco Use Types [...] Priority Date/Time Associated Diagnosis Comments CYTOPATHOLOGY Routine 03/16/2000 0:00 EST documented in this encounter Results * CYTOPATHOLOGY (03/16/2000 0:00 EST) Pathology Report: CYTOPATHOLOGY REPORT Reports generated via electronic interface contain original data; however they are lacking the format of the original report. Caution should be taken when reading/interpreti ng unformatted reports. Name: ? ISRAEL MORLEY ? Accession #: ? [id number] : ? 1940 (Age: 59) ??F ?Collect Date: ? 03/16/2000 Location: ? [facility] ? Receive Date: ? 03/20/2000 Provider: ?SAIRA ADDISON CARPENTER'S ASSISTANT Copy to: ? Specimen/Source: ?ThinPrep Pap Test, Cervix/Endocervix Last Menstrual Period: ? Menstrual/Pregnanc y Status: ? Post Menopausal Hormonal/Contracep tive Status: ? Hormone Replacement Therapy Previous Gynecologic Pathology: ? Yes: not in 3 yrs ? SPECIMEN ADEQUACY ? Satisfactory for evaluation. GENERAL CATEGORIZATION ? Within Normal Limits ? Document reviewed and electronically signed by: ? Audrey Thomas, SCT(ASCP) ? Report Date: ??03/21/2000 15:22 End of Report TONNY ROBERTS 03/16/2000 03/20/2000 Saira Addison CARPENTER'S ASSISTANT PATHOLOGY ORDERABLE S [facility] [address] [place] [address] documented in this encounter Visit Diagnoses Not on filedocumented in this encounter
--- OUTSIDE RECORDS SUMMARY | 2023-10-03 21:48 | XMS_ITS | Encounter Summary ---
Author Organization [facility] Address [address] [place] [address] Care Team Providers Care Lead Nurse Name Role Phone Unavailable Primary Care Provider Unavailabl e Encounter Details Date Type Department Care Team (Late st Contact Info) Description 04/11/2002 Results Only [facility] - Maple conversion [address] [place] [address] Saira Addison, PROCESSING LEAD [address] [facility] [address] [place] [address] Social History Tobacco Use Types [...] Priority Date/Time Associated Diagnosis Comments CYTOPATHOLOGY Routine 04/11/2002 0:00 EST documented in this encounter Results * CYTOPATHOLOGY (04/11/2002 0:00 EST) Pathology Report: CYTOPATHOLOGY REPORT Reports generated via electronic interface contain original data; however they are lacking the format of the original report. Caution should be taken when reading/interpreti ng unformatted reports. Name: ? ISRAEL MORLEY ? Accession #: ? [id number] : ? 1940 (Age: 61) ??F ?Collect Date: ? 04/11/2002 Location: ? [facility] ? Receive Date: ? 04/15/2002 Provider: ?SAIRA ADDISON PROCESSING LEAD Copy to: ? Specimen/Source: ?ThinPrep Pap Test, Cervix/Endocervix Last Menstrual Period: ? 16 yrs ago Hormonal/Contracep tive Status: ? Yes: Climara .05 mg, Medroxy Progesterone 5 mg Previous Gynecologic Pathology: ? Yes: 1996 Treatment History: ? LEEP Cone biopsy ? SPECIMEN ADEQUACY ? Satisfactory for Evaluation - transformation zone component present GENERAL CATEGORIZATION ? Negative for Intraepithelial Lesion or Malignancy ? Document reviewed and electronically signed by: ? LISA Sigala(ASCP) ? Report Date: ??2002 10:40 End of Report TONNY ROBERTS 04/11/2002 04/15/2002 Saira Addison PROCESSING LEAD PATHOLOGY ORDERABLE S Performing Organization Address City/State/[facility] Co de Phone Number TONNY ROBERTS [address] [place] [address] documented in this encounter Visit Diagnoses Not on filedocumented in this encounter
--- OUTSIDE RECORDS SUMMARY | 2023-10-03 21:48 | XMS_ITS | Encounter Summary ---
Author Organization [facility] Address [address] [place] [address] Care Team Providers Care Marine Consultant Name Role Phone Unavailable Primary Care Provider Unavailabl e Encounter Details Date Type Department Care Team (Late st Contact Info) Description 03/21/2001 Results Only [facility] - Maple conversion [address] [place] [address] Saira Addison, STOCK CAR DRIVER [address] [place] [address] Social History Tobacco Use Types [...] Priority Date/Time Associated Diagnosis Comments CYTOPATHOLOGY Routine 03/21/2001 0:00 EST documented in this encounter Results * CYTOPATHOLOGY (03/21/2001 0:00 EST) Pathology Report: CYTOPATHOLOGY REPORT Reports generated via electronic interface contain original data; however they are lacking the format of the original report. Caution should be taken when reading/interpreti ng unformatted reports. Name: ? ISRAEL MORLEY ? Accession #: ? [id number] : ? 1940 (Age: 60) ??F ?Collect Date: ? 03/21/2001 Location: ? [facility] ? Receive Date: ? 03/23/2001 Provider: ?SAIRA ADDISON STOCK CAR DRIVER Copy to: ? Specimen/Source: ?ThinPrep Pap Test, Cervix/Endocervix Last Menstrual Period: ? 15 years Hormonal/Contracep tive Status: ? Estrogen: Progesterone ? SPECIMEN ADEQUACY ? Satisfactory for Evaluation - transformation zone component present GENERAL CATEGORIZATION ? Negative for Intraepithelial Lesion or Malignancy ? Document reviewed and electronically signed by: ? Audrey Thomas, SCT(ASCP) ? Report Date: ??03/27/2001 11:11 End of Report TONNY ROBERTS 03/21/2001 03/23/2001 Saira Addison NP PATHOLOGY ORDERABLE S TONNY ROBERTS [address] [place] [address] documented in this encounter Visit Diagnoses Not on filedocumented in this encounter
== END 2023-10-03 21:46 | disposition home or self-care (01) ==
LOC: NCHCN 21:45
PROVIDERS: PCP Nurse Practitioner Family; Visit Provider Nurse Practitioner Family
DX: D64.9 Anemia, unspecified (principal); R41.9 Unspecified symptoms and signs involving cognitive functions and awareness
CPT/HCPCS: 80048; 85027; 82607; 82728; 83540; 83550

== ENCOUNTER 2023-10-04 09:12 | Outpatient (CLI) | payer MEDICARE, MEDICAID, SELFPAY ==
--- NOTE | 2023-10-04 | DI.CT_ITS ---
Exam(s) CT HEAD WO EXAM: CT HEAD WO CLINICAL HISTORY: Intermittent confusion, R41.0; disorientation. TECHNIQUE: Imaging Protocol: Axial computed tomography images with coronal and sagittal reformatted images were created and reviewed COMPARISON: No exams were available for comparison FINDINGS: Ventricles and Extra axial spaces: Normal in size and morphology for the patient's age. Hemorrhage: None. Cerebral parenchyma: No acute territorial infarct. Vascular calcifications are present. Midline shift: None. Brainstem/Cerebellum: Normal. Calvarium: Normal. Visualized Paranasal sinuses/Mastoids: Clear. Soft Tissues: Unremarkable. IMPRESSION: No acute intracranial process. RADIATION DOSE DELIVERED: Total DLP DATA REPOSITORY: All CT scans at this facility are submitted to the National Radiology Data Registry (NRDR) Dose Index Registry (DIR) with the [employer] (ACR). RADIATION OPTIMIZATION: All CT scans at this facility use at least one of these dose optimization te chniques: automated exposure control; mA and/or kV adjustment per patient size (includes targeted exa ms where dose is matched to clinical indication); or iterative reconstruction.
--- OUTSIDE RECORDS SUMMARY | 2023-10-04 09:15 | XMS_ITS | Encounter Summary ---
Author Organization [facility] Address [address] [place] [address] Care Team Providers Care Octave Board Assembler Name Role Phone Unavailable Primary Care Provider Unavailabl e Encounter Details Date Type Department Care Team (Latest Contact Info) Description 08/22/2005 10:14 EDT - 09/03/2005 11:59 EDT Hospital Encounter [facility] - Maple conversion [address] [place] [address] Blayne Bean MD Discharge Disposition: Admitted to [...]
--- OUTSIDE RECORDS SUMMARY | 2023-10-04 09:15 | XMS_ITS | Encounter Summary ---
Author Organization [facility] Address [address] [place] [address] Care Team Providers Care Pallet Repairer Name Role Phone Unavailable Primary Care Provider Unavailabl e Encounter Details Date Type Department Care Team (Latest Contact Info) Description 03/16/2005 12:04 [facility] Hospital Encounter [facility] - Maple conversion [address] [place] [address] Jessica Keith MD [address] [place] [address] [place] [phone] Discharge Disposition: Auto Discharge Social History [...]
--- OUTSIDE RECORDS SUMMARY | 2023-10-04 09:15 | XMS_ITS | Encounter Summary ---
Author Organization [facility] Address [address] [place] [address] Care Team Providers Care Materials Specialist Name Role Phone Unavailable Primary Care Provider Unavailabl e Encounter Details Date Type Department Care Team (Late st Contact Info) Description 08/22/2005 10:04 EDT Hospital Encounter [facility] - Maple conversion [address] [place] [address] Omaira Parra MD [address] [place] [phone] Social History Tobacco Use Types Packs/Day [...]
--- OUTSIDE RECORDS SUMMARY | 2023-10-04 09:15 | XMS_ITS | Encounter Summary ---
Author Organization [facility] Address [address] [place] [address] Care Team Providers Care Rigger Chief Name Role Phone Unavailable Primary Care Provider Unavailabl e Encounter Details Date Type Department Care Team (Latest Contact Info) Description 04/21/2005 9:10 EST - 04/21/2005 11:59 EST Hospital Encounter [address] [address] Theo Stinson MD Discharge Disposition: Auto Discharge [...] to the left. D: ??04/25/05 T: ??04/26/05 /[facility] Procedure Note Sasha Chinchilla MD - [...] on the right compared to the left. /[facility] Theo Stinson MD IMG DIAGNOSTIC IMAGI NG ORDERABLES documented in this encounter Visit Diagnoses Not on filedocumented in this encounter
--- OUTSIDE RECORDS SUMMARY | 2023-10-04 09:15 | XMS_ITS | Encounter Summary ---
Author Organization [facility] Address [address] [place] [address] Care Team Providers Care Casing Cooker Name Role Phone Blayne Bean MD Primary Care Provider Unav ailable Encounter Details Date Type Department Care Team (Late st Contact Info) Description 05/06/2021 Lab Requisition [facility] Pathology & Laboratory Medicine - [address] [id number] Outr Resulting Lab, Provider Social History Tobacco [...] Factor <8.6 <12.0 IU/mL 05/06/2021 21:35 EDT [facility] Blood VENOUS BLOOD / Unknown 05/06/2021 10:30 EDT 05/06/2021 21:02 EDT Provider Outr Resulting Lab CHEMISTRY & BLOOD GAS ORDERABLES [facility] [address] [place] [address] * ANTI NUCLEAR AB (YUDELKA), IFA (05/06/2021 10:30 EDT) YUDELKA Interpretation Negative Negative 2021 13:36 EDT [facility] Comment:No titer performed, YUDELKA Screen is negative. Blood VENOUS BLOOD / Unknown 05/06/2021 10:30 EDT 05/06/2021 21:02 EDT Narrative [facility] - 05/07/2021 13:36 EDT Results were obtained with the INOVA NOVA Lite HEp-2 YUDELKA Kit by indirect immunofluorescence. Provider Outr Resulting Lab IMMUNOLOGY A ND SEROLOGY ORDERABLES [facility] [address] [place] [address] documented in this encounter Visit Diagnoses Not on filedocumented in this encounter Care Teams Casing Cooker Relationship Specialty Start Date End Date Blayne Bean MD PCP - General 12/03/09 documented as of this encounter
--- OUTSIDE RECORDS SUMMARY | 2023-10-04 09:15 | XMS_ITS | Encounter Summary ---
Author Organization [facility] Address [address] [place] [address] Care Team Providers Care Esters And Emulsifiers Supervisor Name Role Phone Unavailable Primary Care Provider Unavailabl e Encounter Details Date Type Department Care Team (Late st Contact Info) Description 07/11/2005 17:42 EDT Hospital Encounter [facility] [address] [place] [address] Omaira Parra MD [address] [place] [phone] Discharge Disposition: Auto Discharge Social History [...] the right kidney. D: ??07/12/05 T: ??07/13/05 /[facility] Procedure Note Cathi Sam MD - 09/06/2008 [...] cyst is noted in the right kidney. /[facility] Omaira Parra MD IMG MRI ORDERA BLES documented in this encounter Visit Diagnoses Not on filedocumented in this encounter
--- OUTSIDE RECORDS SUMMARY | 2023-10-04 09:15 | XMS_ITS | Encounter Summary ---
Author Organization [facility] Address [address] [place] [address] Care Team Providers Care Furniture And Bedding Inspector Name Role Phone Unavailable Primary Care Provider Unavailabl e Encounter Details Date Type Department Care Team (Late st Contact Info) Description 03/23/2005 8:57 EST - 03/23/2005 11:59 EST Hospital Encounter [facility] - Maple conversion [address] [place] [address] Omaira Parra MD [address] [place] [phone] Discharge Disposition: Auto Discharge Social History [...] osteophytes in the patella. ??Joint space appears matz-ws-izjdgqomxh narrowed both mediolaterally and in the patellofemoral [...] osteophytes in the patella. Joint space appears dkwj-ig-kjbjcjmixu narrowed both mediolaterally and in the patellofemoral aspect of the joint consistent with osteoarthritic changes. Omaira Parra MD [facility] ORDERABLES * KNEE 3 VIEWS [...] osteophytes in the patella. ??Joint space appears npvz-wt-mnxtilmykn narrowed both mediolaterally and in the patellofemoral [...] osteophytes in the patella. Joint space appears ufjr-hq-ubmhpalukg narrowed both mediolaterally and in the patellofemoral [...]
--- OUTSIDE RECORDS SUMMARY | 2023-10-04 09:15 | XMS_ITS | Encounter Summary ---
Author Organization [facility] Address [address] [place] [address] Care Team Providers Care Pot Tender Name Role Phone Blayne Bean MD Primary Care Provider Unav ailable Encounter Details Date Type Department Care Team (Late st Contact Info) Description 12/30/2009 Results Only [facility] Laboratory Services - [facility] ([facility] [address] [place], [place] [address] Saira Addison, PORTFOLIO MGR [facility] [address] [place] [address] Social History Tobacco Use Types [...] ? ISRAEL MORLEY ? Accession #: ? [id number] ? : ? 1940 (Age: 69) ??F ?Collect Date: ? 12/30/2009 ? Location: ? [facility] ? Receive Date: ? 01/01/2010 ? Provider: SAIRA L ADDISON PORTFOLIO MGR ? Copy to: ? Final Report ? [...] ? TONNY ROBERTS 12/30/2009 01/01/2010 Saira Addison PORTFOLIO MGR PATHOLOGY ORDERABLE S [facility] [address] [place] [address] documented in this encounter Visit Diagnoses Not on filedocumented in this encounter Care Teams Pot Tender Relationship Specialty Start Date End Date Blayne Bean MD PCP - General 12/03/09 documented as of this encounter
--- OUTSIDE RECORDS SUMMARY | 2023-10-04 09:15 | XMS_ITS | Encounter Summary ---
Author Organization [facility] Address [address] [place] [address] Care Team Providers Care Paper Folding Machine Operator Name Role Phone Blayne Bean MD Primary Care Provider Unav ailable Encounter Details Date Type Department Care Team (Late st Contact Info) Description 09/07/2021 Lab Requisition [facility] Pathology & Laboratory Medicine - [facility] [address] [place] [address] Outr Resulting Lab, Provider Social History Tobacco [...] 19 - 88 pg/mL 09/07/2021 23:13 EDT [facility] Blood VENOUS BLOOD / Unknown 09/07/2021 9:20 EDT 09/07/2021 21:14 EDT Provider Outr Resulting Lab CHEMISTRY & BLOOD GAS ORDERABLES [facility] [address] [place] [address] documented in this encounter Visit Diagnoses Not on filedocumented in this encounter Care Teams Paper Folding Machine Operator Relationship Specialty Start Date End Date Blayne Bean MD PCP - General 12/03/09 documented as of this encounter
--- OUTSIDE RECORDS SUMMARY | 2023-10-04 09:15 | XMS_ITS | Encounter Summary ---
Author Organization [facility] Address [address] [place] [address] Care Team Providers Care Machine Clothing Replacer Name Role Phone Unavailable Primary Care Provider Unavailabl e Encounter Details Date Type Department Care Team (Late st Contact Info) Description 03/16/2005 Before PRISM Converted Visit (Maple) [facility] - Maple conversion [address] [place] [address] Jessica Keith MD [address] [place] [address] [place] [phone] Social History Tobacco Use Types Packs/Day [...] patient was seen in followup with Dr. Hutrado and I agree with his assessment and [...] with Dr. Aida lizarraga at [facility] to discuss surgical and rehabilitation options. Signed by Jessica Keith MD 03/17/2005 17:35 Bryant Fish MD Jessica Keith MD - Jessica Keith MD P - JM Job ID: [id number] Document ID: [id number] cc: William Joshi MD documented in this encounter Plan of Treatment Not on file documented as of this encounter Visit Diagnoses Not on filedocumented in this encounter
--- OUTSIDE RECORDS SUMMARY | 2023-10-04 09:15 | XMS_ITS | Encounter Summary ---
Author Organization [facility] Address [address] [place] [address] Care Team Providers Care Celluloid Trimmer Name Role Phone Blayne Bean MD Primary Care Provider Unav ailable Encounter Details Date Type Department Care Team (Latest Contact Info) Description 09/29/2014 6:55 EDT - 09/29/2014 23:59 EDT Hospital Encounter [address] [address] Unknown, Provider, Discharge Disposition: Home or Self Care Social History Tobacco Use Types Packs/Day Years Used Date Smoking Tobacco: Never Assessed Sex and Gender Information Value Date Recorded Sex Assigned at Not on file Gender Identity Not on file Sexual Orientation Not on file documented as of this encounter Discharge Disposition Disposition Code Departure Means Destination Home or Self [facility] documented in this encounter Plan of Treatment Not on file documented as of this encounter Visit Diagnoses Not on filedocumented in this encounter Care Teams Celluloid Trimmer Relationship Specialty Start Date End Date Blayne Bean MD PCP - General 12/03/09 documented as of this encounter
--- OUTSIDE RECORDS SUMMARY | 2023-10-04 09:15 | XMS_ITS | Encounter Summary ---
Author Organization [facility] Address [address] [place] [address] Care Team Providers Care Senior Business Process Analyst Name Role Phone Unavailable Primary Care Provider Unavailabl e Encounter Details Date Type Department Care Team (Late st Contact Info) Description 09/18/2005 15:54 EDT - 09/19/2005 11:59 EDT Hospital Encounter [facility] General Surgery Unit [address] [place] [address] Omaira Parra MD [address] [place] [phone] Discharge Disposition: Home or Self Care [...] (ABNORMAL) SED. RATE:FATOU (09/19/2005 5:44 EDT) Pathologist [facility] Sed. Rate Rachelarabella 44(H) 0 - 30 mm/hr [facility] 09/19/2005 5:44 EDT 09/19/2005 6:17 EDT Omaira Parra MD HEMATOLOGY & P F4 ORDERABLES Performing Organization Address City/[facility] Co de Phone Number [facility] [address] [place] [address] * (ABNORMAL) C-REACTIVE PROTEIN (09/19/2005 5:44 EDT) [facility] C-Reactive Protein 1.6(H) <1.0 mg/dl [facility] 09/19/2005 5:44 EDT 09/19/2005 6:17 EDT Omaira Parra MD CHEMISTRY & BL OOD GAS ORDERABLES Performing Organization Address [facility] Co de Phone Number [facility] [address] [place] [address] * (ABNORMAL) HEMAGRAM AND DIFFERENTIAL (09/19/2005 5:44 EDT) [facility] WBC 9.49 4.0 - 12.4 K/cmm TONNY [...] & DNA PROBE ORDERABLES Performing Organization Address [facility] de Phone Number [facility] [address] [place] [address] * (ABNORMAL) SED. RATE:FATOU (09/18/2005 14:13 EDT) [facility] Sed. Rate Fatou 52(H) 0 - 30 mm/hr [facility] 09/18/2005 14:1 3 EDT 09/18/2005 14:23 EDT Default Emergency HEMATOLOGY & PF4 OR DERABLES Performing Organization Address [facility] de Phone Number [facility] [address] [place] [address] * (ABNORMAL) C-REACTIVE PROTEIN (09/18/2005 14:13 EDT) [facility] C-Reactive Protein 1.6(H) <1.0 mg/dl [facility] 09/18/2005 14:1 3 EDT 09/18/2005 14:23 EDT Default Emergency MD CHEMISTRY & BLOOD G ORDERABLES Performing Organization Address City/State/[facility] Co de Phone Number [facility] [address] [place] [address] documented in this encounter Visit Diagnoses Not on filedocumented in this encounter
--- OUTSIDE RECORDS SUMMARY | 2023-10-04 09:15 | XMS_ITS | Encounter Summary ---
Author Organization [facility] Address [address] [place] [address] Care Team Providers Care Clinical Applications Specialist Name Role Phone Unavailable Primary Care Provider Unavailabl e Encounter Details Date Type Department Care Team (Late st Contact Info) Description 12/21/2004 Before PRISM Converted Visit (Maple) [facility] - Maple conversion [address] [place] [address] Pankaj Arvizu MD [address] [place] [address] Social History Tobacco Use Types Packs/Day Years Used Date Smoking Tobacco: Never Assessed Sex and Gender Information Value Date Recorded Sex Assigned at Not on file Gender Identity Not on file Sexual Orientation Not on file documented as of this encounter Procedure Notes * Luke, Conv Pet Care Technician - 04/21/2009 1837 EST DIVISION OF MANAGEMENT OUTPATIENT PROCEDURE REPORT SERVICE DATE: 12/21/2004 CENTRAL SUPPLY ASSISTANT: Bryant Pace MDWilliam H Megdal, MDTiffini Lake, MD OYSTER SHUCKER: Pankaj Arvizu MD PROCEDURE: L5-S1 interlaminar epidural [...] Arvizu MD P - lt Job ID: [id number] Document ID: [id number] cc: MD Blayne Bernal MD documented in this encounter Plan of Treatment Not on file documented as of this encounter Visit Diagnoses Not on filedocumented in this encounter
--- OUTSIDE RECORDS SUMMARY | 2023-10-04 09:15 | XMS_ITS | Encounter Summary ---
Author Organization [facility] Address [address] [place] [address] Care Team Providers Care Steel Loader Name Role Phone Unavailable Primary Care Provider Unavailabl e Encounter Details Date Type Department Care Team (Late st Contact Info) Description 03/21/2001 Results Only [facility] - Maple conversion [address] [place] [address] Saira Addison, COMMERCIAL GREEN BUILDING ARCHITECT [address] [place] [address] Social History Tobacco Use Types [...] ? ISRAEL MORLEY ? Accession #: ? [id number] : ? 1940 (Age: 60) ??F ?Collect Date: ? 03/21/2001 Location: ? [facility] ? Receive Date: ? 03/23/2001 Provider: ?SAIRA ADDISON COMMERCIAL GREEN BUILDING ARCHITECT Copy to: ? Specimen/Source: ?ThinPrep Pap Test, [...] NP PATHOLOGY ORDERABLE S [facility] [address] [place] [address] documented in this encounter Visit Diagnoses Not on filedocumented in this encounter
--- OUTSIDE RECORDS SUMMARY | 2023-10-04 09:15 | XMS_ITS | Encounter Summary ---
Author Organization [facility] Address [address] [place] [address] Care Team Providers Care Drain Technician Name Role Phone Unavailable Primary Care Provider Unavailabl e Encounter Details Date Type Department Care Team (Latest Contact Info) Description 04/25/2005 11:36 EST - 04/25/2005 11:59 EST Hospital Encounter [facility] Perioperative Services - [address] [address] Theo Stinson MD Discharge Disposition: Home or [...] PROCEDURE REPORT PT TYPE: OPPROC PT LOC: [id number] SERVICE DATE: 04/25/2005 SURGEON: Gerald Roberts MDJames G Howe, MD COMMUNICATION EQUIPMENT MECHANIC: ALBA Glasgow PREOPERATIVE DIAGNOSIS: Painful knee, osteoarthritis, [...] we took out the plica using the [employer]s rotary shaver. We also took out a [...] TOURNIQUET TIME: Approximately 20 minutes. Signed by Theo Stinson MD 05/10/2005 09:36 Gerald Roberts MD Theo Stinson MD - Theo Stinson MD Aida - bernardo Job ID: [id number] Document ID: [id number] cc: MD Blayne Watkins MD documented in this encounter Plan of Treatment Not on file documented as of this encounter Visit Diagnoses Not on filedocumented in this encounter
--- OUTSIDE RECORDS SUMMARY | 2023-10-04 09:15 | XMS_ITS | Encounter Summary ---
Author Organization [facility] Address [address] [place] [address] Care Team Providers Care Bottle Blowing Machine Tender Name Role Phone Blayne Bean MD Primary Care Provider Unav ailable Encounter Details Date Type Department Care Team (Late st Contact Info) Description 08/10/2010 Results Only [facility] Laboratory Services - [facility] ([facility]) [address] [place] [address] Clifford Crowell, DO [address] [facility] [address] [place], [place] [id number] Social History Tobacco Use Types Packs/Day Years [...] VINNY, ISRAEL R ? Accession #: ? [id number] ? : ? 1940 (Age: 70) ??F [...] Gross Description: ? Received in formalin labelled [place], [place] are two bassett-white firm ? pieces of tissue which measure 0.4 x 0.3 x 0.2 cm, each and are submitted intact as (A). ? Received in formalin labelled [place], [place] and polyp body of stomach is a 0.4 x 0.3 x 0.2 cm bassett, firm piece of tissue which is submitted intact as (B). ? Received in formalin labelled [place], [place] and distal esophagus are ? three white, focally bassett, firm pieces of tissue which range from 0.3 x 0.2 x 0.2 cm to 0.2 x 0.2 x 0.1 cm, which are submitted intact as (C). ? (Austyn. Ludin)/mpl ? End of Report ? [facility] 08/10/2010 08/11/2010 8:5 2 EDT Clifford Crowell DO PATHOLOGY ORDER LORIN [facility] [address] [place] [address] documented in this encounter Visit Diagnoses Not on filedocumented in this encounter Care Teams Bottle Blowing Machine Tender Relationship Specialty Start Date End Date Blayne Bean MD PCP - General 12/03/09 documented as of this encounter
--- OUTSIDE RECORDS SUMMARY | 2023-10-04 09:15 | XMS_ITS | Encounter Summary ---
Author Organization [facility] Address [address] [place] [address] Care Team Providers Care System Admin Name Role Phone Unavailable Primary Care Provider Unavailabl e Encounter Details Date Type Department Care Team (Late st Contact Info) Description 03/16/2005 Before PRISM Converted Visit (Maple) [facility] - Maple conversion [address] [place] [address] Berto Hurtado MD [address] [place] [address] Social History Tobacco Use Types Packs/Day Years Used Date Smoking Tobacco: Never Assessed Sex and Gender Information Value Date Recorded Sex Assigned at Not on file Gender Identity Not on file Sexual Orientation Not on file documented as of this encounter Progress Notes * Luke, Conv Sign Language Translator - 04/22/2009 0515 EST DIVISION OF PAIN [...] Hurtado DO P - mt Job ID: [id number] Document ID: [id number] cc: S MD William Mayers MD Thomas Ziobrowski, MD documented in this encounter Plan of Treatment Not on file documented as of this encounter Visit Diagnoses Not on filedocumented in this encounter
--- OUTSIDE RECORDS SUMMARY | 2023-10-04 09:15 | XMS_ITS | Encounter Summary ---
Author Organization [facility] Address [address] [place] [address] Care Team Providers Care Electronic Court Recorder Name Role Phone Unavailable Primary Care Provider Unavailabl e Encounter Details Date Type Department Care Team (Late st Contact Info) Description 03/16/2000 Results Only [facility] - Maple conversion [address] [place] [address] Saira Addison, FOREIGN POLICY OFFICER [address] [place] [address] Social History Tobacco Use Types [...] ? ISRAEL MORLEY ? Accession #: ? [id number] : ? 1940 (Age: 59) ??F ?Collect Date: ? 03/16/2000 Location: ? [facility] ? Receive Date: ? 03/20/2000 Provider: ?SAIRA ADDISON FOREIGN POLICY OFFICER Copy to: ? Specimen/Source: ?ThinPrep Pap Test, [...] Report [facility] 03/16/2000 03/20/2000 Saira Addison FOREIGN POLICY OFFICER PATHOLOGY ORDERABLE S [facility] [address] [place] [address] documented in this encounter Visit Diagnoses Not on filedocumented in this encounter
--- OUTSIDE RECORDS SUMMARY | 2023-10-04 09:15 | XMS_ITS | Encounter Summary ---
Author Organization [facility] Address [address] [place] [address] Care Team Providers Care Hydration Plant Operator Name Role Phone Unavailable Primary Care Provider Unavailabl e Encounter Details Date Type Department Care Team (Late st Contact Info) Description 12/01/2009 Results Only [facility] Laboratory Services - [facility] ([facility]) [address] [place], [place] [address] Clifford Crowell, DO [address] [facility] AN[address] CHAN [address] [place] [address] Social History Tobacco Use Types [...] VINNY, ISRAEL R ? Accession #: ? [id number] ? : ? 1940 (Age: 69) ??F [...] Description: ? Received in [facility] fixative labelled [place], [place] and colon ? polyp 55 cm are two bassett-white, irregular tissue fragments measuring 0.3 x 0.2 x 0.2 cm and 0.4 x 0.2 x 0.2 cm. ??The specimen is entirely submitted as (A). ? Received in [facility]'s fixative labelled Laura Morleya and colon polyp 50 cm is a single, 0.7 x 0.5 x 0.3 cm, bassett-pink, irregular tissue fragment. ??The ?? margin is inked black. ??The specimen is trisected and entirely submitted as (B). ? Received in [facility]'s fixative labelled Israel Morley and colon polyp 20 cm are two bassett-pink, irregular tissue fragments measuring 0.3 x 0.2 x 0.2 cm ?? and 0.4 x 0.2 x 0.1 cm. ??The specimen is entirely submitted as (C). ( ? Jose/[facility] ? End of Report ? [facility]ON[facility] 12/01/2009 12/01/2009 9:2 2 EDT Clifford Crowell DO PATHOLOGY ORDER LORIN [facility] [address] [place] [address] documented in this encounter Visit Diagnoses Not on filedocumented in this encounter
--- OUTSIDE RECORDS SUMMARY | 2023-10-04 09:15 | XMS_ITS | Encounter Summary ---
Author Organization [facility] Address [address] [place] [address] Care Team Providers Care Securities Research Analyst Name Role Phone Unavailable Primary Care Provider Unavailabl e Encounter Details Date Type Department Care Team (Latest Contact Info) Description 12/17/2004 12:15 EDT Hospital Encounter [facility] - Maple conversion [address] [place] [address] William Jsohi MD Discharge Disposition: Auto Discharge Social History [...] L3 to S1. D: ??12/21/04 T: ??12/22/04 /[facility] Procedure Note Tammy Moya MD [...] moderate facet osteoarthritis from L3 to S1. /[facility] William Joshi MD IMG DIAGNOSTIC IMAG ING ORDERABLES documented in this encounter Visit Diagnoses Not on filedocumented in this encounter
--- OUTSIDE RECORDS SUMMARY | 2023-10-04 09:15 | XMS_ITS | Encounter Summary ---
Author Organization [facility] Address [address] [place] [address] Care Team Providers Care Line Fixer Name Role Phone Unavailable Primary Care Provider Unavailabl e Encounter Details Date Type Department Care Team (Latest Contact Info) Description 12/21/2004 12:45 EST Hospital Encounter [facility] - Maple conversion [address] [place] [address] Jessica Keith MD [address] [place] [address] [place] [phone] Discharge Disposition: Auto Discharge Social History [...]
--- OUTSIDE RECORDS SUMMARY | 2023-10-04 09:15 | XMS_ITS | Encounter Summary ---
Author Organization [facility] Address [address] [place] [address] Care Team Providers Care Cotton Cleaner Name Role Phone Unavailable Primary Care Provider Unavailabl e Encounter Details Date Type Department Care Team (Late st Contact Info) Description 04/11/2002 Results Only [facility] - Maple conversion [address] [place] [address] Saira Addison, PIPE COVERER [address] [facility] [address] [place] [address] Social History Tobacco Use Types [...] ? ISRAEL MORLEY ? Accession #: ? [id number] : ? 1940 (Age: 61) ??F ?Collect Date: ? 04/11/2002 Location: ? [facility] ? Receive Date: ? 04/15/2002 Provider: ?SAIRA ADDISON PIPE COVERER Copy to: ? Specimen/Source: ?ThinPrep Pap Test, [...] Report TONNY ROBERTS 04/11/2002 04/15/2002 Saira Addison PIPE COVERER PATHOLOGY ORDERABLE S Performing Organization Address City/State/[facility] Co de Phone Number [facility] [address] [place] [address] documented in this encounter Visit Diagnoses Not on filedocumented in this encounter
--- OUTSIDE RECORDS SUMMARY | 2023-10-04 09:15 | XMS_ITS | Encounter Summary ---
Author Organization [facility] Address [address] [place] [address] Care Team Providers Care Electrical Lineworker Name Role Phone Unavailable Primary Care Provider Unavailabl e Encounter Details Date Type Department Care Team (Late st Contact Info) Description 05/05/2005 13:14 [facility] Hospital Encounter [facility] - [address] [address] Theo Stinson MD Social History Tobacco Use [...]
--- OUTSIDE RECORDS SUMMARY | 2023-10-04 09:15 | XMS_ITS | Encounter Summary ---
Author Organization [facility] Address [address] [place] [address] Care Team Providers Care Mellowing Machine Operator Name Role Phone Unavailable Primary Care Provider Unavailabl e Encounter Details Date Type Department Care Team (Late st Contact Info) Description 09/07/2005 7:44 EDT - 09/09/2005 11:59 EDT Hospital Encounter [facility] General Surgery Unit [address] [place] [address] Omaira Parra MD [address] [place] [phone] Discharge Disposition: Home-Health Care Svc Social [...] SURGEON: AKASH Viramontes MDS Elizabeth Ames, MD CAREER TECHNICAL SUPERVISOR: Tj Salmon MD PREOPERATIVE DIAGNOSIS: Spinal stenosis, [...] Parra MD A - ljjudson Job ID: [id number] Document ID: [id number] cc: MD Tj Aguilar MD Thomas Ziobrowski, [...] OOD GAS ORDERABLES [facility] [address] [place] [address] * (ABNORMAL) ELECTROLYTES (09/09/2005 6:00 EDT) Sodium 136 136 - 145 mEq/L [facility] Potassium 3.3(L) 3.5 - 5.0 mEq/L [facility] Chloride 94(L) 96 - 110 mEq/L [facility] CO2 35(H) 24 - 32 mEq/L [facility] 09/09/2005 6:00 EDT 09/09/2005 7:55 EDT Omaira Parra MD CHEMISTRY & BL OOD GAS ORDERABLES Performing Organization Address [facility] Co de Phone Number [facility] [address] [place] [address] * (ABNORMAL) CREATININE (09/09/2005 6:00 EDT) Creatinine 0.6(L) 0.7 - 1.5 mg/dl [facility] 09/09/2005 6:00 EDT 09/09/2005 7:55 EDT Omaira Parra MD HISTORICAL LAB FOR SQ LOAD Performing Organization Address [facility] de Phone Number [facility] [address] [place] [address] * (ABNORMAL) HEMAGRAM AND DIFFERENTIAL (09/09/2005 6:00 [...] & DNA PROBE ORDERABLES Performing Organization Address [facility] Phone Number [facility] [address] [place] [address] * BUN (09/09/2005 6:00 EDT) Pathologist [facility] BUN 10 10 - 26 mg/dl [facility] 09/09/2005 6:00 EDT 09/09/2005 7:55 EDT Omaira Parra MD CHEMISTRY & BL OOD GAS ORDERABLES Performing Organization Address [facility] Co wy Phone Number [facility] [address] [place] [address] * (ABNORMAL) GLUCOSE, SERUM (09/08/2005 5:30 EDT) Glucose, Serum 125(H) 70 - 100 mg/dl [facility] 09/08/2005 5:30 EDT 09/08/2005 5:41 EDT Omaira Parra MD CHEMISTRY & BL OOD GAS ORDERABLES Performing Organization Address [facility] Co wy Phone Number [facility] [address] [place] [address] * PROTIME (09/08/2005 5:30 EDT) Pro Time [...] & P F4 ORDERABLES Performing Organization Address [facility] de Phone Number [facility] [address] [place] [address] * (ABNORMAL) ELECTROLYTES (09/08/2005 5:30 EDT) Pathologist [facility] Sodium 138 136 - 145 mEq/L [facility] Potassium 3.6 3.5 - 5.0 mEq/L [facility] Chloride 99 96 - 110 mEq/L [facility] CO2 34(H) 24 - 32 mEq/L [facility] 09/08/2005 5:30 EDT 09/08/2005 5:41 EDT Omaira Parra MD CHEMISTRY & BL OOD GAS ORDERABLES Performing Organization Address [facility] Phone Number [facility] [address] [place] [address] * CREATININE (09/08/2005 5:30 EDT) Pathologist [facility] Creatinine 0.8 0.7 - 1.5 mg/dl [facility] 09/08/2005 5:30 EDT 09/08/2005 5:41 EDT Omaira Parra MD HISTORICAL LAB FOR SQ LOAD Performing Organization Address [facility] de Phone Number [facility] [address] [place] [address] * (ABNORMAL) HEMAGRAM AND DIFFERENTIAL (09/08/2005 5:30 [...] DNA PROBE ORDERABLES [facility] [address] [place] [address] * BUN (09/08/2005 5:30 EDT) BUN 14 10 - 26 mg/dl [facility] 09/08/2005 5:30 EDT 09/08/2005 5:41 EDT Omaira Parra MD CHEMISTRY & BL OOD GAS ORDERABLES [facility] [address] [place] [address] * L SPINE 1 VIEW (09/07/2005 11:47 [...] is also present. /shelli Omaira Parra MD [facility] DIAGNOSTIC IMAGING ORDERABLES * L SPINE 1 [...]
--- OUTSIDE RECORDS SUMMARY | 2023-10-04 09:15 | XMS_ITS | Encounter Summary ---
Author Organization [facility] Address [address] [place] [address] Care Team Providers Care Office Helper Clerical Name Role Phone Blayne Bean MD Primary Care Provider Unav ailable Encounter Details Date Type Department Care Team (Late st Contact Info) Description 09/29/2014 Results Only [facility] [phone] Clifford Crowell, DO [address] [facility] [address] [place] [address] Social History Tobacco Use Types [...] ? ISRAEL MORLEY ? Accession #: ? [id number] ? : ? 1940 (Age: 74) ??F [...] [place] 09/30/2014 8:48 AM End of Report [facility] 09/29/2014 18:2 8 EDT 09/29/2014 18:28 EDT Clifford Crowell DO PATHOLOGY ORDER LORIN Performing Organization Address City/State/[facility] Co de Phone Number [facility] [address] [place] [address] documented in this encounter Visit Diagnoses Not on filedocumented in this encounter Care Teams Office Helper Clerical Relationship Specialty Start Date End Date Blayne Bean MD PCP - General 12/03/09 documented as of this encounter
--- OUTSIDE RECORDS SUMMARY | 2023-10-04 09:15 | XMS_ITS | Encounter Summary ---
Author Organization [facility] Address [address] [place] [address] Care Team Providers Care Wire Steward Name Role Phone Unavailable Primary Care Provider Unavailabl e Encounter Details Date Type Department Care Team (Late st Contact Info) Description 09/18/2005 Office Visit [facility] [place] conversion [address] [place] [address] Nurse, Emergency Room, Social History Tobacco Use Types Packs/Day Years Used Date Smoking Tobacco: Never Assessed Sex and Gender Information Value Date Recorded Sex Assigned at Not on file Gender Identity Not on file Sexual Orientation Not on file documented as of this encounter Progress Notes * Luke, Conv Captain Assistant - 04/15/2009 2229 EST Department - Physician Summary Registration Date/Time: 09/18/2005 13:49 Addenda for ISRAEL MORLEY VisitID: [id number] Date: 09/18/2005 09/18/2005 11:16 DR. PARRA REFERRING [...] Pt has small woundstill from previous surgery. [place] and dressing intact. ). --1406 Ed Welch [...] aspect of wound. no purulent dng seen. [place] intact. dsg replaced.). --1416 Merline Porter R.N. [...] Merline Porter R.N. DISPOSITION / DISCHARGE Admitted ([place] [phone]). Transported via wheelchair by tech. Report was given (Geri). --0196 Bronwyn Farah R.N. Nurse . Merline Porter R.N. Locked/Released at 09/20/2005 7:34 by Merline Espinoza R.N. documented in this encounter Plan of Treatment Not on file documented as of this encounter Visit Diagnoses Not on filedocumented in this encounter
--- OUTSIDE RECORDS SUMMARY | 2023-10-04 09:15 | XMS_ITS | Encounter Summary ---
Author Organization [facility] Address [address] [place] [address] Care Team Providers Care Job Cost Estimator Name Role Phone Unavailable Primary Care Provider Unavailabl e Encounter Details Date Type Department Care Team (Late st Contact Info) Description 01/21/2005 Before PRISM Converted Visit (Maple) [facility] - Maple conversion [address] [place] [address] Pankaj Arvizu MD [address] [place] [phone] Social History Tobacco Use Types Packs/Day Years Used Date Smoking Tobacco: Never Assessed Sex and Gender Information Value Date Recorded Sex Assigned at Not on file Gender Identity Not on file Sexual Orientation Not on file documented as of this encounter Procedure Notes * Luke, Conv Speech Language Pathologist Assistant - 04/22/2009 1342 EST DIVISION OF MANAGEMENT OUTPATIENT PROCEDURE REPORT SERVICE DATE: 01/21/2005 ATTENDING: Bryant Pace MDWilliam H Megdal, MDTiffini Lake, MD HOME CARE MANAGER RN: Pankaj Arvizu MD PROCEDURE: Intralaminar epidural steroid [...] was advanced under fluoroscopic guidanceusing saline and ixwe-gw-mbmpsyjuzp technique. There was mncp-ge-iemqcdzxli detected. There was negative aspiration for blood and CSF. Then 1 cc of contrast was injected which showed appropriate epidural spread. Then Depo-Mflpuc20 mg plus 1 cc 0.25% bupivacaine was injected followed by 3 cc of normal saline. The patient tolerated the procedurewell. Post procedure blood pressure was 176/88, pulse 70, respiration 18. Dr. Keith was present and participated in the entire procedure. The patient was observed for approximately 15 minutes following the procedure and then was discharged from the clinicin the company of a otr tanker truck driver. She will return to the clinic on a p.r.n. basis. Signed by Jessica Keith MD 01/27/2005 12:48 Lazara Pace MDTiffini Lake, MD Dictated by: Pankaj Arvizu MD Jessica Keith MD - Pankaj Arvizu MD P - bb Job ID: [id number] Document ID: [id number] cc: MD Blayne Bernal MD documented in this encounter Plan of Treatment Not on file documented as of this encounter Visit Diagnoses Not on filedocumented in this encounter
--- OUTSIDE RECORDS SUMMARY | 2023-10-04 09:15 | XMS_ITS | Encounter Summary ---
Author Organization [facility] Address [address] [place] [address] Care Team Providers Care Medical Research Associate Name Role Phone Unavailable Primary Care Provider Unavailabl e Encounter Details Date Type Department Care Team (Late st Contact Info) Description 04/22/2004 Results Only [facility] - Maple conversion [address] [place] [address] Saira Addison, PIN WORKER [address] [facility] [address] [place] [address] Social History Tobacco Use Types [...] ? ISRAEL MORLEY ? Accession #: ? [id number] : ? 1940 (Age: 64) ??F ?Collect Date: ? 04/22/2004 Location: ? [facility] ? Receive Date: ? 04/26/2004 Provider: ?SAIRA ADDISON PIN WORKER Copy to: ? Specimen/Source: ?ThinPrep Pap Test, [...] NP PATHOLOGY ORDERABLE S [facility] [address] [place] [address] documented in this encounter Visit Diagnoses Not on filedocumented in this encounter
--- OUTSIDE RECORDS SUMMARY | 2023-10-04 09:15 | XMS_ITS | Encounter Summary ---
Author Organization [facility] Address [address] [place] [address] Care Team Providers Care Group Home Manager Name Role Phone Unavailable Primary Care Provider Unavailabl e Encounter Details Date Type Department Care Team (Latest Contact Info) Description 01/21/2005 11:27 EST - 01/21/2005 11:59 EST Hospital Encounter [facility] - Maple conversion [address] [place] [address] Jessica Keith MD [address] [place] [phone] Discharge Disposition: Auto Discharge Social History [...]
--- OUTSIDE RECORDS SUMMARY | 2023-10-04 09:15 | XMS_ITS | Encounter Summary ---
Author Organization [facility] Address [address] [place] [address] Care Team Providers Care Regulatory Specialist Name Role Phone Unavailable Primary Care Provider Unavailabl e Encounter Details Date Type Department Care Team (Late st Contact Info) Description 10/19/2005 14:17 EDT Hospital Encounter [facility] - Maple conversion [address] [place] [address] Omaira Parra MD [address] [place] [phone] Social History Tobacco Use Types Packs/Day [...]
--- OUTSIDE RECORDS SUMMARY | 2023-10-04 09:15 | XMS_ITS | Encounter Summary ---
Author Organization [facility] Address [address] [place] [address] Care Team Providers Care Sleep Technologist Name Role Phone Blayne Bean MD Primary Care Provider Unav ailable Encounter Details Date Type Department Care Team (Late st Contact Info) Description 01/08/2010 Results Only [facility] Laboratory Services - [facility] [address] [place], [place] [address] [place] [address] [place] [address],[address] [place] [address] Social History Tobacco Use Types [...] PEYMAN, ISRAEL R ? Accession #: ? [id number] ? : ? 1940 (Age: 69) ??F [...] ? submitted in a single cassette. (Chip Harvey)/[facility] ? End of Report ? [facility] 01/08/2010 01/09/2010 8:3 0 EST Guru Cisneros MD PATHOLOGY ORDERABLES [facility] [address] [place] [address] documented in this encounter Visit Diagnoses Not on filedocumented in this encounter Care Teams Sleep Technologist Relationship Specialty Start Date End Date Blayne Bean MD PCP - General 12/03/09 documented as of this encounter
--- OUTSIDE RECORDS SUMMARY | 2023-10-04 09:15 | XMS_ITS | Clinical Summary ---
Author Organization [facility] Address [address] [place] [address] Care Team Providers Care Wood Pattern Maker Name Role Phone Blayne Bean MD Primary [...] COVID-19 Vaccine (2022-24 season) 2022 Care Teams Wood Pattern Maker Relationship Specialty Start Date End Date Blayne Bean MD PCP - General 12/03/09
--- OUTSIDE RECORDS SUMMARY | 2023-10-04 09:15 | XMS_ITS | Encounter Summary ---
Author Organization [facility] Address [address] [place] [address] Care Team Providers Care Thread Puller Name Role Phone Unavailable Primary Care Provider Unavailabl e Encounter Details Date Type Department Care Team (Late st Contact Info) Description 07/20/2006 Results Only [facility] - Maple conversion [address] [place] [address] Saira Addison, LEVER OPERATOR [address] [place] [address] Social History Tobacco Use Types [...] 68. [facility] Report Status Final [id number] [facility] 07/20/2006 18:5 7 EDT 07/26/2006 18:57 EDT Saira Addison NP MICROBIOLOGY - GENE RAL ORDERABLES [facility] [address] [place] [address] * CYTOPATHOLOGY (07/20/2006 0:00 EDT) Pathology Report: CYTOPATHOLOGY REPORT Reports generated via electronic interface contain original data; however they are lacking the format of the original report. Caution should be taken when reading/interpreti ng unformatted reports. Name: ? ISRAEL MORLEY ? Accession #: ? [id number] : ? 1940 (Age: 66) ??F ?Collect Date: ? 07/20/2006 Location: ? [facility] ? Receive Date: ? 07/21/2006 Provider: ?SAIRA ADDISON LEVER OPERATOR Copy to: ? Specimen/Source: ?ThinPrep Pap Test, Cervix/Endocervix, processed on [employer] ThinPrep Imaging System, with manual evaluation Last [...] Report [facility] 07/20/2006 07/21/2006 Saira Addison LEVER OPERATOR PATHOLOGY ORDERABLE S Performing Organization Address City/State/[facility] Co de Phone Number [facility] [address] [place] [address] documented in this encounter Visit Diagnoses Not on filedocumented in this encounter
--- OUTSIDE RECORDS SUMMARY | 2023-10-04 09:15 | XMS_ITS | Encounter Summary ---
Author Organization [facility] Address [address] [place] [address] Care Team Providers Care Fitness Leader Name Role Phone Unavailable Primary Care Provider Unavailabl e Encounter Details Date Type Department Care Team (Latest Contact Info) Description 06/23/2005 14:10 EDT Hospital Encounter [facility] - [address] [address] Theo Stinson MD Discharge Disposition: Auto Discharge [...]
--- OUTSIDE RECORDS SUMMARY | 2023-10-04 09:15 | XMS_ITS | Encounter Summary ---
Author Organization [facility] Address [address] [place] [address] Care Team Providers Care Direct Service Professional Name Role Phone Unavailable Primary Care Provider Unavailabl e Encounter Details Date Type Department Care Team (Late st Contact Info) Description 07/25/2005 15:[address] [facility] - Maple conversion [address] [place] [address] Omaira Parra MD [address] [place] [phone] Discharge Disposition: Auto Discharge Social History [...]
--- OUTSIDE RECORDS SUMMARY | 2023-10-04 09:15 | XMS_ITS | Referral Summary ---
Author Organization [facility] Address [address] [place] [address] Care Team Providers Care Percussion Instrument Tuner Name Role Phone Blayne Bean MD Primary Care Provider Unav ailable Social History Tobacco Use Types Packs/Day Years Used Date Smoking Tobacco: Never Assessed Sex and Gender Information Value Date Recorded Sex Assigned at Not on file Gender Identity Not on file Sexual Orientation Not on file Plan of Treatment Not on file Care Teams Percussion Instrument Tuner Relationship Specialty Start Date End Date Blayne Bean MD PCP - General 12/03/09
--- OUTSIDE RECORDS SUMMARY | 2023-10-04 09:15 | XMS_ITS | Encounter Summary ---
Author Organization [facility] Address [address] [place] [address] Care Team Providers Care Tableau Developer Name Role Phone Unavailable Primary Care Provider Unavailabl e Encounter Details Date Type Department Care Team (Late st Contact Info) Description 04/15/2003 Results Only [facility] - Maple conversion [address] [place] [address] Saira Addison, FACTORY HAND [address] [place] [address] Social History Tobacco Use Types [...] ? ISRAEL MORLEY ? Accession #: ? [id number] : ? 1940 (Age: 63) ??F ?Collect Date: ? 04/15/2003 Location: ? [facility] ? Receive Date: ? 04/17/2003 Provider: ?SAIRA ADDISON FACTORY HAND Copy to: ? Specimen/Source: ?ThinPrep Pap Test, [...] NP PATHOLOGY ORDERABLE S TONNY ROBERTS [address] [place] [address] documented in this encounter Visit Diagnoses Not on filedocumented in this encounter
== END 2023-10-04 09:32 ==
LOC: DI 09:13
PROVIDERS: PCP Nurse Practitioner Family; Visit Provider Nurse Practitioner Family
DX: R41.0 Disorientation, unspecified (principal)
CPT/HCPCS: 70450

== ENCOUNTER → 2023-12-05 07:58 | Outpatient (BNVA) | payer MEDICARE, MEDICAID, SELFPAY | PROVIDERS: PCP Nurse Practitioner Family; Referring Provider Nurse Practitioner Family; Visit Provider Nurse Practitioner Adult Health | DX: R41.82 Altered mental status, unspecified (principal); J44.9 Chronic obstructive pulmonary disease, unspecified; I10 Essential (primary) hypertension; Z87.891 Personal history of nicotine dependence; G47.30 Sleep apnea, unspecified | CPT/HCPCS: 99214 ==

== ENCOUNTER 2024-07-30 15:12 | Outpatient (REF) | payer MEDICARE, MEDICAID, SELFPAY ==
[2024-07-30 15:23] LABS: HCT 38.9 % (36.0-46.0); HGB 12.5 g/dL (11.2-15.7); MCH 32.3 pg (27.0-33.0); MCHC 32.1 % (32.0-36.0); MCV 101 fL (80-95); MPV 9.4 fL (8.0-11.0); Platelet Count 168 10^3/uL (130-400); RBC 3.87 10^6/uL (3.93-5.22); RDW 13.5 % (11.7-14.6); RDW-SD 50.2 fL
[2024-07-30 16:14] LABS: ALT 72 U/L (14-59); AST 31 U/L (15-37); Albumin 3.5 g/dL (3.4-5.0); Alkaline Phosphatase 112 U/L (46-116); Anion Gap 6.5 mmol/L (3-11); BUN 22 mg/dL (7-18); Bilirubin, Total 0.7 mg/dL (0.2-1.0); CO2 30.5 mmol/L (21.0-32.0); Calcium 9.2 mg/dL (8.5-10.1); Chloride 105 mmol/L (98-107); Estimated GFR 56.25 (mL/min/1.73m2); Ferritin 42 ng/mL (8-252); Glucose 94 mg/dL (74-106); Sodium 142 mmol/L (136-145); TSH 1.28 uIU/mL (0.36-3.74); Total Protein 6.5 g/dL (6.4-8.2); Vitamin B12 1552 pg/mL (193-986)
[2024-07-30 17:14] LABS: Iron 65 ug/dL (50-170); Total Iron Binding Capacity 309 ug/dL (250-450); Transferrin Sat 21 % (15-50)
== END 2024-07-30 15:13 | disposition home or self-care (01) ==
LOC: NCHCN 15:12
PROVIDERS: PCP Nurse Practitioner Family; Visit Provider Nurse Practitioner Family
DX: R40.4 Transient alteration of awareness (principal)
CPT/HCPCS: 80053; 85027; 82607; 82728; 83540; 83550; 84443

== ENCOUNTER 2024-10-07 02:33 | Outpatient (CLI) | payer MEDICARE, MEDICAID, SELFPAY ==
--- NOTE | 2024-10-07 | DI.MRI_ITS ---
Exam(s) MR BRAIN WO EXAM: MR BRAIN WO CLINICAL HISTORY: Transient alteration of awareness, R40.4; syncope and falls, episodes of TECHNIQUE: Multiplanar multisequence MRI of the brain was performed. 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 No fluid in the paranasal sinuses and mastoid air cells. There is no evidence of intracranial hemorrhage, mass effect, or shift of midline structures. There are no extra-axial fluid collections. Ventricles are not enlarged or shifted. No evidence of cerebellar tonsillar ectopia. There is no significant focal signal abnormality in the cerebellar hemispheres nor within the eileen, midbrain, and thalami. There is no abnormal signal abnormality in the periventricular white matter. There is no significant focal signal abnormality evident on diffusion imaging to suggest acute ischemic event. PITUITARY GLAND: No mass nor parasellar abnormality. No obvious abnormality in the cavernous sinuses. FLOW VOIDS: The expected flow void are noted. No evidence of obvious aneurysm nor obvious vascular malformation. PARANASAL SINUSES: The visualized paranasal sinuses appear unremarkable. No obvious finding ORBITS: Evidence of prior bilateral cataract surgery. IMPRESSION: No significant intracranial findings on this noninfused MRI scan of the brain. DATA REPOSITORY:
== END 2024-10-07 02:53 ==
LOC: DI 02:34
PROVIDERS: PCP Nurse Practitioner Family; Visit Provider Nurse Practitioner Family
DX: R40.4 Transient alteration of awareness (principal)
CPT/HCPCS: 70551

== ENCOUNTER 2024-12-17 12:11 | Outpatient (CLI) | payer MEDICARE, MEDICAID, SELFPAY ==
--- NOTE | 2024-12-17 12:50 | DI.RAD_ITS ---
Exam(s) XR CLAVICLE RT EXAM: XR CLAVICLE RT CLINICAL HISTORY: CLAVICULAR ASYMMETRY,q74.0,HYPERTROPHY OF BONE, M89.319, NONPAINFUL. TECHNIQUE: 2D digital imaging was performed. COMPARISON: CR XR CLAVICLE RT from 09/12/2022 CR XR CHEST 2V PA LATERAL from 12/17/2024 FINDINGS: Two views No evidence of right clavicle fracture. No osseous lesions. Mild degenerative changes in the AC joint are noted. Bone density normal. No osseous lesions. Fusion hardware in the lower cervical spine incidentally noted. IMPRESSION: No acute osseous findings in the right clavicle. DATA REPOSITORY: RADIATION DOSE DELIVERED:
--- NOTE | 2024-12-17 12:50 | DI.RAD_ITS ---
Exam(s) XR CHEST 2V PA LATERAL EXAM: XR CHEST 2V PA LATERAL CLINICAL HISTORY: CLAVICULAR ASYMMETRY,q74.0,HYPERTROPHY OF BONE,m89.319,NONPAINFUL TECHNIQUE: 2D digital imaging was performed of the chest. Two images were obtained. PA and lateral views were obtained. COMPARISON: CR CHEST 2 VIEWS PA,LAT from 08/10/2012 CR LEFT SHOULDER COMPLETE from 07/23/2015 FINDINGS: MEDIASTINUM: Normal. HEART: Normal. PULMONARY VASCULATURE: Normal. LUNGS: There are no focal consolidating infiltrates. The lungs are hyperinflated suggesting underlying COPD. PLEURAL SPACE: There is blunting of the left costophrenic angle. This may represent a small effusion or pleural scarring. There is no right pleural effusion. No pneumothorax is present. BONE:Within normal limits for the patient's age. There is a right convex thoracic scoliosis. OTHER FINDINGS:Normal. IMPRESSION: 1. Small left pleural effusion versus scarring. 2. No focal consolidating infiltrates. DATA REPOSITORY: RADIATION DOSE DELIVERED:
== END 2024-12-17 12:31 ==
PROVIDERS: PCP Nurse Practitioner Family; Visit Provider Nurse Practitioner Family
DX: Q74.0 Other congenital malformations of upper limb(s), including shoulder girdle (principal); M89.319 Hypertrophy of bone, unspecified shoulder
CPT/HCPCS: 71046; 73000